=== PATIENT | male | born 1960 | race Caucasian/White ===

== ENCOUNTER → 2016-07-13 | Outpatient (CLI) | payer BC ==
--- NOTE | 2016-07-13 14:39 | XR ---
EXAMINATION TYPE: XR KUB DATE OF EXAM ORDERED: 07/13/2016 1:53 PM HISTORY: N20.2 stones. COMPARISON: Previous study dated 08/31/2013. FINDINGS: There are multiple renal calcifications present bilaterally. The largest on the left is in the lower pole and measures 5.3 mm. There is a 1.7 mm calculus overlying the upper pole of the right kidney. There are multiple, stable phleboliths within the pelvis. The abdominal gas pattern is normal. IMPRESSION: BILATERAL NEPHROLITHIASIS.
== END ==
LOC: RADXRMAIN 13:32
PROVIDERS: ATTEND Urology
DX: N20.0 Calculus of kidney (principal)
CPT/HCPCS: 74000

== ENCOUNTER → 2017-07-29 | Outpatient (CLI) | payer BC ==
--- NOTE | 2017-07-29 11:47 | XR ---
EXAMINATION TYPE: XR abdomen 1V DATE OF EXAM: 07/29/2017 HISTORY: Pain Comparison: 07/13/2016 Single KUB is submitted for interpretation. Findings: Right renal calculi: Right renal evaluation obscured by overlying bowel content. Right ureteral calculi: None Visualized. Left renal calculi: Multiple left-sided renal calculi noted with a cluster within the upper pole of the left kidney measuring up to 6.6 mm. Smaller calculi seen lower pole left kidney measuring up to 4 .6 mm. Left ureteral calculi: None Visualized. Pelvic calcifications: Multiple pelvic phleboliths noted. Bowel gas pattern is unremarkable. No free air. No mass effects. IMPRESSION: 1. Left-sided nephrolithiasis as discussed above with slight interval decrease in number suggested.
== END | disposition home or self-care (01) ==
LOC: RADXRMAIN 11:12
PROVIDERS: ATTEND Urology
DX: N20.0 Calculus of kidney (principal); R39.14 Feeling of incomplete bladder emptying
CPT/HCPCS: 74018; 84153

== ENCOUNTER → 2017-08-25 | Outpatient (CLI) | payer BC | END | disposition home or self-care (01) | LOC: LABWHC1 08:12 | PROVIDERS: ATTEND Urology | DX: E03.9 Hypothyroidism, unspecified (principal); R97.20 Elevated prostate specific antigen [PSA] | CPT/HCPCS: 36415; 84153; 84403 ==

== ENCOUNTER → 2020-05-10 | Outpatient (CLI) | payer BC ==
[2020-05-10 14:15] LABS: Basophils # (A) 0.1 k/uL (0-0.2); Basophils % (A) 1 %; Eosinophils # (A) 0.1 k/uL (0-0.7); Eosinophils % (A) 1 %; HCT 51.1 % (39.0-53.0); HGB 17.8 gm/dL (13.0-17.5); Lymphocytes # (A) 1.5 k/uL (1.0-4.8); Lymphocytes % (A) 21 %; MCH 29.8 pg (25.0-35.0); MCHC 34.9 g/dL (31.0-37.0); MCV 85.2 fL (80.0-100.0); Mean Platelet Volume 8.3; Monocytes # (A) 0.4 k/uL (0-1.0); Monocytes % (A) 5 %; Neutrophils % (A) 71 %; Platelet Count 181 k/uL (150-450); RDW 12.8 % (11.5-15.5)
== END | disposition home or self-care (01) ==
LOC: LABPAT 12:34
PROVIDERS: ATTEND Surgery
DX: Z01.818 Encounter for other preprocedural examination (principal); K43.9 Ventral hernia without obstruction or gangrene; Z20.822 Contact with and (suspected) exposure to COVID-19
CPT/HCPCS: 86900; 86901; 85025; 86850; 93005; 36415; U0003; U0005

== ENCOUNTER 2020-05-14 09:03 | Day surgery (SDC) | payer BC ==
[2020-05-09 11:49] VITALS: BMI 29.8
[~2020-05-14 09:03] MED LIST: DEXAMETHASONE SOD PHOSPHATE 4 MG/ML 1 ML VIAL IV ONE; HEPARIN SODIUM,PORCINE 5,000 UNIT/ML 1 ML VIAL SQ PRN; HYDROmorphone 0.5 MG/0.5 ML SYRINGE IVP PRN; ONDANSETRON 4 MG/2 ML VIAL IVP ONE
[2020-05-14] MEDS: LACTATED RINGERS 1,000 ML IV SCH ×2 (09:55→11:59)
[2020-05-14] MEDS ORDERED: SCOPOLAMINE 1.5MG/72HR PATCH TRANSDERM ONE (10:16)
[2020-05-14] MEDS ORDERED: MIDAZOLAM 2 MG/2 ML VIAL IVP ONE (10:36)
[2020-05-14] MEDS ORDERED: fentaNYL (PF) 50 MCG/ML 2 ML AMP IVP ONE (10:36)
[2020-05-14] MEDS ORDERED: HEPARIN SODIUM,PORCINE 5,000 UNIT/ML 1 ML VIAL SQ ONE (10:50)
--- NOTE | 2020-05-14 11:52 | P.ANPRN ---
Procedure Note - Anesthesia - Nerve Block Performed Bilateral Transversus Abdominis Single Time Out Performed: Yes ([id number]) Date of Procedure: 05/14/20 Procedure Start Time: 10:36 Procedure Stop Time: 10:42 Location of Patient: PreOp Indication: Acute Post-Operative Pain, Requested by Surgeon Specifically requested for management of pain by : Janneth Blackwood Sedation Type: Sedate with meaningful contact maintained Preparation: Sterile Prep Position: Supine Catheter: None Needle Types: Pajunk Needle Gauge: 21 Ultrasound used to visualize needle placement: Yes Ultrasound used to observe medication spread: Yes Injectate: 0.5% Ropivacaine (see comment for volume) (20cc each side) Blood Aspirated: No Pain Paresthesia on Injection Noted: No Resistance on Injection: Normal Image Stored and Saved: Yes Events: Uneventful and Well Tolerated
[2020-05-14] MEDS ORDERED: PROPOFOL 10 MG/ML 20 ML VIAL IV ONE (11:55)
[2020-05-14] MEDS ORDERED: SUCCINYLCHOLINE CHLORIDE 100 MG/5 ML SYR IV ONE (11:55)
[2020-05-14] MEDS ORDERED: MIDAZOLAM 2 MG/2 ML VIAL ONE (11:55)
[2020-05-14] MEDS ORDERED: LIDOCAINE 1% INJ 10MG/ML (20 ML MDV) ONE (11:55)
[2020-05-14] MEDS ORDERED: KETAMINE 10 MG/ML 20 ML VIAL ONE (11:55)
[2020-05-14] MEDS ORDERED: ROPIVACAINE 5 MG/ML 30 ML VIAL ONE (11:55)
[2020-05-14] MEDS ORDERED: GLYCOPYRROLATE 0.2 MG/ML 2 ML VIAL ONE (11:55)
[2020-05-14] MEDS ORDERED: NEOSTIGMINE 1 MG/ML 10 ML VIAL ONE (11:55)
[2020-05-14] MEDS ORDERED: ROCURONIUM 10 MG/ML (10 ML VIAL) IV ONE (11:55)
[2020-05-14] MEDS ORDERED: fentaNYL (PF) 50 MCG/ML 2 ML AMP ONE (11:55)
[2020-05-14] MEDS ORDERED: KETOROLAC 15 MG/ML 1 ML VIAL ONE (11:55)
[2020-05-14] MEDS ORDERED: LIDOCAINE 1% INJ 10MG/ML (10 ML MDV) SQ ONE ×2 (12:38)
[2020-05-14] MEDS ORDERED: LACTATED RINGERS 1,000 ML IV ONE (13:04)
--- NOTE | 2020-05-14 13:06 | P.OP ---
Date of Procedure: 05/14/20 Preoperative Diagnosis: Left inguinal hernia Postoperative Diagnosis: Left inguinal hernia, indirect Procedure(s) Performed: Robotic left inguinal hernia repair with mesh Anesthesia: MAHOGANY Surgeon: Janneth Blackwood Pathology: none sent Condition: stable Disposition: same day Indications for Procedure: 59-year-old male presented to the surgery clinic with complaints of left-sided pain. On workup he was found to have a left inguinal hernia. Patient requested inguinal hernia repair due to this finding. He was explained the risks, benefits and alternatives to the procedure. He did provide consent prior to attending the operating suite. Operative Findings: Left inguinal indirect hernia Description of Procedure: The patient was brought back to the operating suite and placed in supine position. After general endotracheal anesthesia was induced, Longoria catheter was placed under sterile conditions. Arms were then tucked to the sides bilaterally and all pressure points were padded. SCDs were also placed in bilateral lower extremities and working throughout the case. Preoperative and packs were given prior to incision. A timeout was performed with all team members in agreement with correct patient, procedure and location. A super umbilical incision was made approximately 20 cm superior to the pubic symphysis. The abdomen was then entered with an 8 mm trocar. At this point pneumoperitoneum was achieved. 2 additional incisions were made approximately 11 cm lateral to the super umbilical incision and 8 mm trochars were placed. The patient was then placed in Trendelenburg position and the hernia site was clearly visualized on the left side. This was noted as an indirect inguinal hernia. The robot was then docked appropriately. Incision was then made just lateral to the medial umbilical ligament on the left side with the monopolar scissors and peritoneal flap was created and was taken down towards Harry's ligament. The flap was then extended laterally. Attention was then turned to the indirect inguinal hernia. The sac was then freed from the cord all while preserving cord structures. At this point, the indirect hernia was reduced. Once the entire face was approximately dissected out, we brought the laparoscopic anatomic Parietex progrip mesh and unrolled it over the hernia site. Once appropriately in place, the peritoneal flap was closed using a running 20V lock suture. Once this was completed, we removed all robotic instruments and undocked the robot. The supraumbilical fascial incision was closed with a 0 Vicryl suture using a Guille-Satinder device. This was done under laparoscopic guidance. All skin incisions were then closed with 4-0 Vicryl subcuticular suture. The Longoria catheter was removed. The patient was awakened and taken to recovery unit in stable condition.
[2020-05-14 13:21] VITALS: TEMP 97.4
[2020-05-14 13:54] VITALS: RESP 16
[2020-05-14] MEDS ORDERED: HYDROcodone/APAP 5-325MG 1 EACH TAB ONE (14:08)
[2020-05-14 15:58] VITALS: BP 162/109; PULSE 88
== END 2020-05-14 15:51 | disposition home or self-care (01) ==
LOC: OR 09:03
PROVIDERS: ATTEND Surgery
DX: K40.90 Unilateral inguinal hernia, without obstruction or gangrene, not specified as recurrent (principal); E07.9 Disorder of thyroid, unspecified; Z79.890 Hormone replacement therapy; Z79.899 Other long term (current) drug therapy; Z80.9 Family history of malignant neoplasm, unspecified; Z81.8 Family history of other mental and behavioral disorders; Z87.442 Personal history of urinary calculi
CPT/HCPCS: 64488; 49650; C1781; J2250; J1644; J1100; J2710; J0690; J2405; J2001 ×2; J3010; J2795; J1885; J0330; J2704; 86850; 86900; 86901

== ENCOUNTER → 2021-12-09 | Outpatient (CLI) | payer BC ==
[2021-12-09 15:10] LABS: HCT 49.2 % (39.6-50.0); HGB 16.1 g/dL (13.0-17.0); MCH 28.3 pg (27.0-32.0); MCHC 32.7 g/dL (32.0-37.0); MCV 86.5 fL (80.0-97.0); NRBC Per 100 WBC 0 /100 WBCS (0.0-0.0); Platelet Count 192 X 10*3/uL (140-440); RBC 5.69 X 10*6/uL (4.40-5.60); RDW 12.9 % (11.5-14.5); WBC 6.52 X 10*3/uL (4.50-10.00)
[2021-12-09 15:51] LABS: ALT 27 U/L (10-49); AST 21 U/L (14-35); African American GFR (CKD) 69.2 (60.0-200.0); Albumin 4.5 g/dL (3.8-4.9); Alkaline Phosphatase 63 U/L (41-126); Blood Urea Nitrogen 15.6 mg/dL (9.0-27.0); Calcium 9.1 mg/dL (8.7-10.3); Carbon Dioxide 25.1 mmol/L (20.0-27.5); Chloride 103 mmol/L (96-109); Globulin 2.5 g/dL (1.6-3.3); Glucose 107 mg/dL (70-110); Luteinizing Hormone 0.5 mIU/mL; Non-African American GFR(CKD) 59.7 (60.0-200.0); Potassium 4.5 mmol/L (3.5-5.5); Sodium 140 mmol/L (135-145)
[2021-12-09 15:55] LABS: Follicle Stimulating Hormone <0.3 mIU/mL
== END | disposition home or self-care (01) ==
LOC: LABWHC1 09:55
PROVIDERS: ATTEND Internal Medicine Endocrinology, Diabetes & Metabolism
DX: E29.1 Testicular hypofunction (principal); E03.8 Other specified hypothyroidism
CPT/HCPCS: 36415; 80053; 82533; 83001; 83002; 84146; 84153; 84403; 84443; 85027

== ENCOUNTER 2022-01-26 16:19 | Emergency (ER) | payer BC ==
[2022-01-26 17:03] VITALS: RESP 20
[2022-01-26 17:48] LABS: Appearance,Urine Clear (Clear); Bilirubin,Urine Negative (Negative); Blood,Urine Negative (Negative); Color,Urine Colorless; Glucose,Urine (UA) Negative (Negative); Ketones,Urine Negative (Negative); Leukocyte Esterase,Urine Negative (Negative); Nitrite,Urine Negative (Negative); Protein,Urine Negative (Negative); Specific Gravity,Urine 1.009 (1.001-1.035); Urobilinogen,Urine <2.0 mg/dL (<2.0)
--- NOTE | 2022-01-26 18:00 | XR ---
EXAMINATION TYPE: XR KUB DATE OF EXAM: 01/26/2022 5:40 PM INDICATION: Patient age:Male; 61 years old; Reason for study: abdominal, decreased urination; COMPARISON: CT abdomen pelvis 05/18/2013. TECHNIQUE: One radiographic view of the abdomen was obtained. FINDINGS: The bowel gas pattern is nonspecific without dilated loops of small or large bowel. There i s no evidence for organomegaly or pneumoperitoneum. The osseous structures are intact. Calcific dens ities project over the left kidney measuring up to 12 mm. Fecal material and gas are demonstrated thr oughout the colon and rectum. Multilevel disc degeneration changes of the spine. IMPRESSION: 1. Nonspecific bowel gas pattern without radiographic evidence for acute process. 2. Left renal calculi.
[2022-01-26 18:43] LABS: Basophils % (A) 0 %; Eosinophils # (A) 0.1 k/uL (0-0.7); Eosinophils % (A) 1 %; HCT 50.9 % (39.0-53.0); HGB 18.3 gm/dL (13.0-17.5); Lymphocytes # (A) 1.3 k/uL (1.0-4.8); Lymphocytes % (A) 15 %; MCH 30.4 pg (25.0-35.0); MCV 84.4 fL (80.0-100.0); Mean Platelet Volume 9.7; Monocytes # (A) 0.4 k/uL (0-1.0); Monocytes % (A) 4 %; Neutrophils % (A) 78 %; Platelet Count 186 k/uL (150-450); RBC 6.03 m/uL (4.30-5.90); RDW 11.9 % (11.5-15.5); WBC 8.9 k/uL (3.8-10.6)
[2022-01-26 18:51] LABS: Albumin 4.8 g/dL (3.5-5.0); Calcium 9.6 mg/dL (8.4-10.2); Potassium 4.8 mmol/L (3.5-5.1); Total Bilirubin 0.6 mg/dL (0.2-1.3); Total Protein 7.8 g/dL (6.3-8.2)
--- NOTE | 2022-01-26 21:09 | ED ---
Male Urogenital HPI - General Chief complaint: Urogenital Stated complaint: Difficulty urinating Time Seen by Provider: 01/26/22 20:40 Source: patient, RN notes reviewed Mode of arrival: ambulatory Limitations: no limitations - History of Present Illness Initial comments: This is a pleasant 61-year-old male who presents to emergency department complaining of urinary retention since this morning. Patient states he's been able to dribble out a little bit of urine here and there. Patient has discomfort in the suprapubic area. Any history of urinary retention. No history of prostate problems. Patient does have a history of kidney stones and states that he has been having some back pain. In fact, he recently saw a neurologist for epidural steroid injections into the back. It sounds that this back pain was mechanical. Patient not specifically complaining of any flank pain although he states last week he did have some pain around the left flank. Patient taking no qquk-ywi-hcrvjzh cough or cold remedies. No medications that would definitively cause urinary retention. No new medications. No headache, no fever or chills, no changes in vision or hearing, no sore throat or difficulty with speech, no neck pain, no chest pain or shortness of breath, no abdominal pain, no nausea or vomiting, no changes inbowel movements, no numbness or tingling, no extremity pain, no skin rashes or lesions. Past medical, surgical, social, and family history reviewed. - Related Data Home Medications Medication Instructions Recorded Confirmed Testosterone [Androgel 1.62% Gel 1 dose TOPICAL DAILY 08/25/13 05/14/20 Packet] B Complex-Vit C-Vit E-Zinc [Z-Bec] 1 tab PO DAILY 05/09/20 05/14/20 Cholecalciferol (Vitamin D3) 125 mcg PO DAILY 05/09/20 05/14/20 [Vitamin D3 (5000 Iu)] Levothyroxine Sodium [Levoxyl] 75 mcg PO DAILY 05/09/20 05/14/20 Melatonin 5 mg PO HS PRN 05/09/20 05/14/20 Sildenafil Citrate [Viagra] 50 mg PO DIRECTED PRN 05/09/20 05/14/20 Vitamin E 400 unit PO DAILY 05/09/20 05/14/20 flaxseed oiL [Rainbow-3 Flaxseed Oil] 750 mg PO DAILY 05/09/20 05/14/20 Previous Rx's Medication Instructions Recorded HYDROcodone/APAP 5-325MG [[place] 1 tab PO Q6HR PRN 3 Days #12 tab 05/14/20 5-325] Ibuprofen [Motrin] 800 mg PO Q8H #24 tab 05/14/20 Allergies Allergy/AdvReac Type Severity Reaction Status Date / Time No Known Allergies Allergy Verified 01/26/22 17:03 Review of Systems ROS Statement: Those systems with pertinent positive or pertinent negative responses have been documented in the HPI. ROS Other: All systems not noted in ROS Statement are negative. Past Medical History Past Medical History: Thyroid Disorder Additional Past Medical History / Comment(s): Renal calculi. Ventral hernia currrently. History of Any Multi-Drug Resistant Organisms: None Reported Past Surgical History: Back Surgery Additional Past Surgical History / Comment(s): Lumbar surgery, left percutaneous nephrolithotomy Past Anesthesia/Blood Transfusion Reactions: Motion Sickness Past Psychological History: No Psychological Hx Reported Smoking Status: Never smoker Past Alcohol Use History: None Reported Past Drug Use History: None Reported - Past Family History Father Family Medical History: Cancer, CVA/TIA Additional Family Medical History / Comment(s): Melanoma skin cancer General Exam Limitations: no limitations General appearance: alert, in no apparent distress Head exam: Present: atraumatic, normocephalic, normal inspection Eye exam: Present: normal appearance, PERRL, EOMI. Absent: scleral icterus, conjunctival injection, periorbital swelling ENT exam: Present: normal exam, mucous membranes moist, normal external ear exam. Absent: mucous membranes dry, TM's normal bilaterally Neck exam: Present: normal inspection. Absent: tenderness, meningismus, lymphadenopathy Respiratory exam: Present: normal lung sounds bilaterally. Absent: respiratory distress, wheezes, rales, rhonchi, stridor Cardiovascular Exam: Present: regular rate, normal rhythm, normal heart sounds. Absent: systolic murmur, diastolic murmur, rubs, gallop, clicks GI/Abdominal exam: Present: distended (Distended urinary bladder), tenderness (Mild tenderness to suprapubic area with notable bladder distention.), normal bowel sounds. Absent: guarding, rebound, rigid Extremities exam: Present: normal inspection, full ROM, normal capillary refill. Absent: tenderness, pedal edema, joint swelling, calf tenderness Back exam: Present: normal inspection Neurological exam: Present: alert, oriented X3, CN II-XII intact Psychiatric exam: Present: normal affect, normal mood Skin exam: Present: warm, dry, intact, normal color. Absent: rash Course Vital Signs 01/26/22 17:00 Temperature 97.8 F Pulse Rate 103 H Respiratory 20 Rate Blood Pressure 150/90 O2 Sat by Pulse 96 Oximetry Medical Decision Making - Medical Decision Making Patient presents with urinary retention. Does not appear to be ill or toxic. Does not appear to be related to any medication use. General lab work, I'm going to obtain a computed tomography scan as the patient states he did have flank pain about a week ago and has a history of kidney stones. Computed tomography scan shows nonobstructing renal calculi, prostatomegaly, large stool burden both in the rectal vault and throughout the colon. Small fat-containing umbilical hernia. No other evidence of acute pathology. I did offer an enema to the patient. He refused this. States he would rather use adox-lgv-nehvprf laxatives. Discussed hydration strategies. We'll leave the Longoria catheter in place for 3 days and have him follow-up with his urologist, Dr. Friedman alternatively, he can follow-up with his regular physician Dr. Chappell. Patient was told to return to the ER for any signs or symptoms worsen. Told to return immediately if any other problems arise. All questions answered. Treatment plan discussed. Patient in agreement Every effort has been made to ensure accuracy of this dictation. However, due to the limitations of electronic medical records and dictation devices, errors in charting still occur. Bonding Supervisor Dr. Myles - Lab Data Result diagrams: 01/26/22 18:10 01/26/22 18:10 Lab Results 01/26/22 01/26/22 01/26/22 Range/Units 17:13 18:10 18:10 WBC 8.9 (3.8-10.6) k/uL RBC 6.03 H (4.30-5.90) m/uL Hgb 18.3 H (13.0-17.5) gm/dL Hct 50.9 (39.0-53.0) % MCV 84.4 (80.0-100.0) fL MCH 30.4 (25.0-35.0) pg MCHC 36.0 (31.0-37.0) g/dL RDW 11.9 (11.5-15.5) % Plt Count 186 (150-450) k/uL MPV 9.7 Neutrophils % 78 % Lymphocytes % 15 % Monocytes % 4 % Eosinophils % 1 % Basophils % 0 % Neutrophils # 7.0 (1.3-7.7) k/uL Lymphocytes # 1.3 (1.0-4.8) k/uL Monocytes # 0.4 (0-1.0) k/uL Eosinophils # 0.1 (0-0.7) k/uL Basophils # 0.0 (0-0.2) k/uL Sodium 141 (137-145) mmol/L Potassium 4.8 (3.5-5.1) mmol/L Chloride 101 (98-107) mmol/L Carbon Dioxide 27 (22-30) mmol/L Anion Gap 13 mmol/L BUN 18 (9-20) mg/dL Creatinine 1.12 (0.66-1.25) mg/dL Est GFR (CKD-EPI)AfAm 83 (>60 ml/min/1.73 sqM) Est GFR (CKD-EPI)NonAf 72 (>60 ml/min/1.73 sqM) Glucose 97 (74-99) mg/dL Calcium 9.6 (8.4-10.2) mg/dL Total Bilirubin 0.6 (0.2-1.3) mg/dL AST 21 (17-59) U/L ALT 35 (4-49) U/L Alkaline Phosphatase 83 (38-126) U/L Total Protein 7.8 (6.3-8.2) g/dL Albumin 4.8 (3.5-5.0) g/dL Urine Color Colorless Urine Appearance Clear (Clear) Urine pH 5.0 (5.0-8.0) Ur Specific [place] 1.009 (1.001-1.035) Urine Protein Negative (Negative) Urine Glucose (UA) Negative (Negative) Urine Ketones Negative (Negative) Urine Blood Negative (Negative) Urine Nitrite Negative (Negative) Urine Bilirubin Negative (Negative) Urine Urobilinogen <2.0 (<2.0) mg/dL Ur Leukocyte Esterase Negative (Negative) - Radiology Data Radiology results: report reviewed, image reviewed Disposition Clinical Impression: Acute urinary retention, Prostate enlargement, Constipation Disposition: HOME SELF-CARE Condition: Good Instructions (If sedation given, give patient instructions): Enlarged Prostate (BPH) (ED), Urinary Retention in Men (ED), Constipation (ED) Additional Instructions: Become magnesium citrate from the pharmacy on the way home. Drink the bottle as directed, weight 6 hours, repeat the treatment if necessary. Ensure your adequately hydrated. Call tomorrow morning at 8 AM to the urologist's office to schedule a follow-up appointment. Longoria catheter will likely need to be left in for about 3 days. Follow-up with your regular physician as directed. Return to the ER immediately if any symptoms worsen, new symptoms arise, or any other problems develop. Is patient prescribed a controlled substance at d/c from ED?: No Referrals: Diego Chappell MD [Primary Care Provider] - 1-2 days Time of Disposition: 22:19
--- NOTE | 2022-01-26 21:59 | CT ---
EXAMINATION TYPE: CT abdomen pelvis wo con CT DLP: 782.2 mGycm, Automated exposure control for dose reduction was used. DATE OF EXAM: 01/26/2022 9:52 PM COMPARISON: CT abdomen pelvis most recent from 05/18/2013 CLINICAL INDICATION:Male, 61 years old with history of Flank pain, urinary retention; LT flank pain, urinary retention TECHNIQUE: Axial CT of the abdomen and pelvis. Sagittal and coronal reformats were created on a [employer] workstation. Contrast used: none Oral contrast used: without Oral Contrast FINDINGS: LOWER CHEST: Unremarkable ABDOMEN LIVER: Unremarkable GALLBLADDER AND BILE DUCTS: Unremarkable. PANCREAS: Unremarkable. SPLEEN: Scattered calcified granulomas. ADRENAL GLANDS: Unremarkable. KIDNEYS AND URETERS: Bilateral renal calculi no evidence for obstructive uropathy. PELVIS BLADDER: Nondistended with Longoria catheter in place. REPRODUCTIVE: Prostate is enlarged in size measuring 6.7 cm in transverse dimension. ABDOMEN & PELVIS STOMACH AND BOWEL: No evidence of bowel obstruction. Stool ball seen within the rectum. Appendix is n ormal. There is a large stool burden predominantly in the cecum and ascending colon and proximal valenzuela sverse colon. PERITONEUM: No evidence of pneumoperitoneum or free fluid. VASCULATURE: No evidence of aortic aneurysm. MUSCULOSKELETAL: No acute osseous abnormalities, multilevel disc degeneration changes. LYMPH NODES: No gross evidence for lymphadenopathy. SOFT TISSUE/ABDOMINAL WALL: Bilateral fat filled inguinal fatty changes. Small fat-containing umbilic al hernia. IMPRESSION: 1. Bilateral nonobstructing renal calculi without evidence for hydronephrosis. No evidence for acute intraluminal process. 2. Prostatomegaly. Correlate with serum PSA. 3. Longoria catheter in place with a nondistended bladder. 4. Large stool burden throughout the right colon and rectum.
[2022-01-26 22:47] VITALS: BP 148/77; PULSE 92; TEMP 98
== END 2022-01-26 22:47 | disposition home or self-care (01) ==
LOC: EC 16:19
DX: K59.00 Constipation, unspecified (principal); N40.1 Benign prostatic hyperplasia with lower urinary tract symptoms; E07.9 Disorder of thyroid, unspecified; Z79.899 Other long term (current) drug therapy
CPT/HCPCS: 36415; 74018; 74176; 80053; 81003; 85025; 99284

== ENCOUNTER 2022-02-08 20:57 | Inpatient (IN) | payer BC ==
[2022-02-08] MEDS ORDERED: ACETAMINOPHEN TAB 500 MG TAB PO STA (21:31)
[2022-02-08] MEDS ORDERED: SODIUM CHLORIDE 0.9% 500 ML 500 ML IV STA (21:31)
[2022-02-08] MEDS ORDERED: SODIUM CHLORIDE 0.9% 1,000 ML IV STA ×2 (21:31)
[2022-02-08] MEDS ORDERED: KETOROLAC 15 MG/ML 1 ML VIAL IVP STA (21:33)
[2022-02-08 22:09] LABS: Basophils # (A) 0.1 k/uL (0-0.2); Basophils % (A) 0 %; Eosinophils # (A) 0.2 k/uL (0-0.7); Eosinophils % (A) 1 %; HCT 41.6 % (39.0-53.0); Lymphocytes # (A) 0.7 k/uL (1.0-4.8); Lymphocytes % (A) 3 %; MCH 29.3 pg (25.0-35.0); MCHC 35.4 g/dL (31.0-37.0); MCV 82.8 fL (80.0-100.0); Mean Platelet Volume 9.1; Monocytes # (A) 1.2 k/uL (0-1.0); Monocytes % (A) 4 %; Neutrophils # (A) 25.1 k/uL (1.3-7.7); Neutrophils % (A) 91 %; Platelet Count 158 k/uL (150-450); RBC 5.03 m/uL (4.30-5.90); WBC 27.5 k/uL (3.8-10.6)
[2022-02-08 22:11] LABS: HGB 14.7 gm/dL (13.0-17.5)
--- NOTE | 2022-02-08 22:17 | ED ---
Fever HPI - General Chief Complaint: Fever Stated Complaint: Fever Time Seen by Provider: 02/08/22 21:30 Source: patient, RN notes reviewed, old records reviewed Mode of arrival: ambulatory Limitations: no limitations - History of Present Illness Initial Comments: This is a 61-year-old male to the emergency department for evaluation, patient has been straight cathing lately secondary to urinary retention. Patient has severe weakness currently he does feel sweaty clammy lightheaded and dizzy. Patient has body aches pains and feels like he may have breast for infection cough or congestion. MD Complaint: fever, malaise, weakness, other (Cough and congestion) -: days(s) Temperature Source: oral Context: sick contacts, multiple patients with similar symptoms Associated Symptoms: denies other symptoms Treatments Prior to Arrival: none - Related Data Home Medications Medication Instructions Recorded Confirmed Testosterone [Androgel 1.62% Gel 1 dose TOPICAL DAILY 08/25/13 05/14/20 Packet] B Complex-Vit C-Vit E-Zinc [Z-Bec] 1 tab PO DAILY 05/09/20 05/14/20 Cholecalciferol (Vitamin D3) 125 mcg PO DAILY 05/09/20 05/14/20 [Vitamin D3 (5000 Iu)] Levothyroxine Sodium [Levoxyl] 75 mcg PO DAILY 05/09/20 05/14/20 Melatonin 5 mg PO HS PRN 05/09/20 05/14/20 Sildenafil Citrate [Viagra] 50 mg PO DIRECTED PRN 05/09/20 05/14/20 Vitamin E 400 unit PO DAILY 05/09/20 05/14/20 flaxseed oiL [[place]-3 Flaxseed Oil] 750 mg PO DAILY 05/09/20 05/14/20 Previous Rx's Medication Instructions Recorded HYDROcodone/APAP 5-325MG [[place] 1 tab PO Q6HR PRN 3 Days #12 tab 05/14/20 5-325] Ibuprofen [Motrin] 800 mg PO Q8H #24 tab 05/14/20 Allergies Allergy/AdvReac Type Severity Reaction Status Date / Time No Known Allergies Allergy Verified 02/08/22 21:21 Review of Systems ROS Statement: Those systems with pertinent positive or pertinent negative responses have been documented in the HPI. ROS Other: All systems not noted in ROS Statement are negative. Past Medical History Past Medical History: Thyroid Disorder Additional Past Medical History / Comment(s): Renal calculi. Ventral hernia currrently. History of Any Multi-Drug Resistant Organisms: None Reported Past Surgical History: Back Surgery Additional Past Surgical History / Comment(s): Lumbar surgery, left percutaneous nephrolithotomy Past Anesthesia/Blood Transfusion Reactions: Motion Sickness Past Psychological History: No Psychological Hx Reported Smoking Status: Never smoker Past Alcohol Use History: None Reported Past Drug Use History: None Reported - Past Family History Father Family Medical History: Cancer, CVA/TIA Additional Family Medical History / Comment(s): Melanoma skin cancer General Exam Limitations: no limitations General appearance: alert, in no apparent distress, anxious, in distress Head exam: Present: atraumatic, normocephalic, normal inspection Eye exam: Present: normal appearance, PERRL, EOMI. Absent: scleral icterus, conjunctival injection, periorbital swelling ENT exam: Present: normal exam, mucous membranes dry Neck exam: Present: normal inspection. Absent: tenderness, meningismus, lymphadenopathy Respiratory exam: Present: normal lung sounds bilaterally. Absent: respiratory distress, wheezes, rales, rhonchi, stridor Cardiovascular Exam: Present: normal rhythm, tachycardia, normal heart sounds. Absent: systolic murmur, diastolic murmur, rubs, gallop, clicks GI/Abdominal exam: Present: soft, normal bowel sounds. Absent: distended, tenderness, guarding, rebound, rigid Extremities exam: Present: normal inspection, full ROM, normal capillary refill. Absent: tenderness, pedal edema, joint swelling, calf tenderness Back exam: Present: normal inspection Neurological exam: Present: alert, oriented X3, CN II-XII intact Psychiatric exam: Present: normal affect, normal mood Skin exam: Present: warm, dry, intact, normal color. Absent: rash Course Vital Signs 02/08/22 02/08/22 02/08/22 21:17 22:08 22:40 Temperature 100.1 F H 102.3 F H 101.2 F H Pulse Rate 133 H 123 H 114 H Respiratory 20 20 Rate Blood Pressure 92/60 O2 Sat by Pulse 95 93 L 94 L Oximetry 02/08/22 02/08/22 23:00 23:30 Temperature 99.3 F 98.8 F Pulse Rate 107 H Respiratory 20 Rate Blood Pressure 110/61 O2 Sat by Pulse 95 Oximetry - Reevaluation(s) Reevaluation #1: 02/08/22 23:07 Medical records reviewed Reevaluation #2: 02/09/22 00:45 patient has no significant improvement here in the ED Reevaluation #3: 02/09/22 00:46 Patient informed of results and questions answered - Consultations Consultation #1: Spoke with [facility] who agreed to admit the patient Medical Decision Making - Medical Decision Making 61 male to the emergency department today for evaluation regarding urinary retention prostate enlargement today with fever and weakness for 2 days. Patient has significant urinary tract infection. Patient has sepsis. Due to patient's sepsis he will be given 30 mi./kg of fluid. Patient placed on IV antibiotics broad-spectrum, and admitted for further treatment - Lab Data Result diagrams: 02/08/22 21:58 02/08/22 21:58 Lab Results 02/08/22 02/08/22 02/08/22 Range/Units 21:55 21:55 21:58 WBC 27.5 H (3.8-10.6) k/uL RBC 5.03 (4.30-5.90) m/uL Hgb 14.7 D (13.0-17.5) gm/dL Hct 41.6 (39.0-53.0) % MCV 82.8 (80.0-100.0) fL MCH 29.3 (25.0-35.0) pg MCHC 35.4 (31.0-37.0) g/dL RDW 12.0 (11.5-15.5) % Plt Count 158 (150-450) k/uL MPV 9.1 Neutrophils % 91 % Lymphocytes % 3 % Monocytes % 4 % Eosinophils % 1 % Basophils % 0 % Neutrophils # 25.1 H (1.3-7.7) k/uL Lymphocytes # 0.7 L (1.0-4.8) k/uL Monocytes # 1.2 H (0-1.0) k/uL Eosinophils # 0.2 (0-0.7) k/uL Basophils # 0.1 (0-0.2) k/uL Sodium (137-145) mmol/L Potassium (3.5-5.1) mmol/L Chloride (98-107) mmol/L Carbon Dioxide (22-30) mmol/L Anion Gap mmol/L BUN (9-20) mg/dL Creatinine (0.66-1.25) mg/dL Est GFR (CKD-EPI)AfAm (>60 ml/min/1.73 sqM) Est GFR (CKD-EPI)NonAf (>60 ml/min/1.73 sqM) Glucose (74-99) mg/dL POC Glucose (mg/dL) (70-110) mg/dL POC Glu Doctor Podiatric Medicine ID Plasma Lactic Acid [place] (0.7-2.0) mmol/L Calcium (8.4-10.2) mg/dL Phosphorus (2.5-4.5) mg/dL Magnesium (1.6-2.3) mg/dL Total Bilirubin (0.2-1.3) mg/dL AST (17-59) U/L ALT (4-49) U/L Alkaline Phosphatase (38-126) U/L Total Protein (6.3-8.2) g/dL Albumin (3.5-5.0) g/dL Lipase (23-300) U/L Urine Color Urine Appearance (Clear) Urine pH (5.0-8.0) Ur Specific [place] (1.001-1.035) Urine Protein (Negative) Urine Glucose (UA) (Negative) Urine Ketones (Negative) Urine Blood (Negative) Urine Nitrite (Negative) Urine Bilirubin (Negative) Urine Urobilinogen (<2.0) mg/dL Ur Leukocyte Esterase (Negative) Urine RBC (0-5) /hpf Urine WBC (0-5) /hpf Urine WBC Clumps (None) /hpf Urine Bacteria (None) /hpf Urine Mucus (None) /hpf Coronavirus (PCR) Not Detected (Not Detectd) Influenza Type A RNA Not Detected (Not Detectd) Influenza Type B (PCR) Not Detected (Not Detectd) 02/08/22 02/08/22 02/08/22 Range/Units 21:58 21:58 23:17 WBC (3.8-10.6) k/uL RBC (4.30-5.90) m/uL Hgb (13.0-17.5) gm/dL Hct (39.0-53.0) % MCV (80.0-100.0) fL MCH (25.0-35.0) pg MCHC (31.0-37.0) g/dL RDW (11.5-15.5) % Plt Count (150-450) k/uL MPV Neutrophils % % Lymphocytes % % Monocytes % % Eosinophils % % Basophils % % Neutrophils # (1.3-7.7) k/uL Lymphocytes # (1.0-4.8) k/uL Monocytes # (0-1.0) k/uL Eosinophils # (0-0.7) k/uL Basophils # (0-0.2) k/uL Sodium 132 L (137-145) mmol/L Potassium 3.9 (3.5-5.1) mmol/L Chloride 99 (98-107) mmol/L Carbon Dioxide 22 (22-30) mmol/L Anion Gap 11 mmol/L BUN 16 (9-20) mg/dL Creatinine 1.30 H (0.66-1.25) mg/dL Est GFR (CKD-EPI)AfAm 69 (>60 ml/min/1.73 sqM) Est GFR (CKD-EPI)NonAf 60 (>60 ml/min/1.73 sqM) Glucose 167 H (74-99) mg/dL POC Glucose (mg/dL) (70-110) mg/dL POC Glu Doctor Podiatric Medicine ID Plasma Lactic Acid [place] 1.4 (0.7-2.0) mmol/L Calcium 8.4 (8.4-10.2) mg/dL Phosphorus 1.5 L (2.5-4.5) mg/dL Magnesium 1.6 (1.6-2.3) mg/dL Total Bilirubin 1.4 H (0.2-1.3) mg/dL AST 15 L (17-59) U/L ALT 23 (4-49) U/L Alkaline Phosphatase 71 (38-126) U/L Total Protein 6.1 L (6.3-8.2) g/dL Albumin 3.7 (3.5-5.0) g/dL Lipase 13 L (23-300) U/L Urine Color Yellow Urine Appearance Cloudy (Clear) Urine pH 5.5 (5.0-8.0) Ur Specific [place] 1.012 (1.001-1.035) Urine Protein 1+ H (Negative) Urine Glucose (UA) Negative (Negative) Urine Ketones Negative (Negative) Urine Blood Large H (Negative) Urine Nitrite Negative (Negative) Urine Bilirubin Negative (Negative) Urine Urobilinogen <2.0 (<2.0) mg/dL Ur Leukocyte Esterase Large H (Negative) Urine RBC 24 H (0-5) /hpf Urine WBC >182 H (0-5) /hpf Urine WBC Clumps Moderate H (None) /hpf Urine Bacteria Rare H (None) /hpf Urine Mucus Rare H (None) /hpf Coronavirus (PCR) (Not Detectd) Influenza Type A RNA (Not Detectd) Influenza Type B (PCR) (Not Detectd) 02/09/22 Range/Units 00:28 WBC (3.8-10.6) k/uL RBC (4.30-5.90) m/uL Hgb (13.0-17.5) gm/dL Hct (39.0-53.0) % MCV (80.0-100.0) fL MCH (25.0-35.0) pg MCHC (31.0-37.0) g/dL RDW (11.5-15.5) % Plt Count (150-450) k/uL MPV Neutrophils % % Lymphocytes % % Monocytes % % Eosinophils % % Basophils % % Neutrophils # (1.3-7.7) k/uL Lymphocytes # (1.0-4.8) k/uL Monocytes # (0-1.0) k/uL Eosinophils # (0-0.7) k/uL Basophils # (0-0.2) k/uL Sodium (137-145) mmol/L Potassium (3.5-5.1) mmol/L Chloride (98-107) mmol/L Carbon Dioxide (22-30) mmol/L Anion Gap mmol/L BUN (9-20) mg/dL Creatinine (0.66-1.25) mg/dL Est GFR (CKD-EPI)AfAm (>60 ml/min/1.73 sqM) Est GFR (CKD-EPI)NonAf (>60 ml/min/1.73 sqM) Glucose (74-99) mg/dL POC Glucose (mg/dL) 145 H (70-110) mg/dL POC Glu Doctor Podiatric Medicine ID Kallek, Christelle Plasma Lactic Acid [place] (0.7-2.0) mmol/L Calcium (8.4-10.2) mg/dL Phosphorus (2.5-4.5) mg/dL Magnesium (1.6-2.3) mg/dL Total Bilirubin (0.2-1.3) mg/dL AST (17-59) U/L ALT (4-49) U/L Alkaline Phosphatase (38-126) U/L Total Protein (6.3-8.2) g/dL Albumin (3.5-5.0) g/dL Lipase (23-300) U/L Urine Color Urine Appearance (Clear) Urine pH (5.0-8.0) Ur Specific [place] (1.001-1.035) Urine Protein (Negative) Urine Glucose (UA) (Negative) Urine Ketones (Negative) Urine Blood (Negative) Urine Nitrite (Negative) Urine Bilirubin (Negative) Urine Urobilinogen (<2.0) mg/dL Ur Leukocyte Esterase (Negative) Urine RBC (0-5) /hpf Urine WBC (0-5) /hpf Urine WBC Clumps (None) /hpf Urine Bacteria (None) /hpf Urine Mucus (None) /hpf Coronavirus (PCR) (Not Detectd) Influenza Type A RNA (Not Detectd) Influenza Type B (PCR) (Not Detectd) - Radiology Data Radiology results: report reviewed (CT abdomen and pelvis pending), image reviewed Critical Care Time Critical Care Time: Yes Total Critical Care Time: 31 Disposition Clinical Impression: Prostate enlargement, Acute urinary retention, Fever, Sepsis, UTI (urinary tract infection) Disposition: ADMITTED IP TO THIS [facility] Condition: Fair Is patient prescribed a controlled substance at d/c from ED?: No Referrals: Diego Chappell MD [Primary Care Provider] - 1-2 days Time of Disposition: 00:30
--- NOTE | 2022-02-08 22:32 | XR ---
EXAMINATION TYPE: XR chest 1V portable DATE OF EXAM: 02/08/2022 COMPARISON: NONE HISTORY: Cough TECHNIQUE: Single view FINDINGS: There is no heart failure nor confluent pneumonic infiltrate. Costophrenic angles are clear . There are chest leads. Bony thorax is intact. IMPRESSION: No active cardiopulmonary disease. Normal heart.
[2022-02-08 22:39] LABS: Albumin 3.7 g/dL (3.5-5.0); Calcium 8.4 mg/dL (8.4-10.2); Magnesium 1.6 mg/dL (1.6-2.3); Phosphorus 1.5 mg/dL (2.5-4.5); Potassium 3.9 mmol/L (3.5-5.1); Total Bilirubin 1.4 mg/dL (0.2-1.3); Total Protein 6.1 g/dL (6.3-8.2)
[2022-02-09 00:03] LABS: Appearance,Urine Cloudy (Clear); Bacteria,Urine Rare /hpf; Bilirubin,Urine Negative (Negative); Blood,Urine Large (Negative); Color,Urine Yellow; Glucose,Urine (UA) Negative (Negative); Ketones,Urine Negative (Negative); Leukocyte Esterase,Urine Large (Negative); Mucus,Urine Rare /hpf; Nitrite,Urine Negative (Negative); PH, Urine 5.5 (5.0-8.0); Protein,Urine 1+ (Negative); RBC,Urine 24 /hpf (0-5); Specific Gravity,Urine 1.012 (1.001-1.035); Urobilinogen,Urine <2.0 mg/dL (<2.0); WBC,Urine >182 /hpf (0-5)
[2022-02-09] MEDS ORDERED: SODIUM CHLORIDE 0.9% 1,000 ML IV STA (00:24)
[2022-02-09] MEDS ORDERED: ACETAMINOPHEN TAB 325 MG TAB PO PRN (00:25)
[2022-02-09] MEDS ORDERED: ONDANSETRON 4 MG/2 ML VIAL IVP PRN (00:25)
[2022-02-09] MEDS ORDERED: MORPHINE SULFATE 4 MG/ML SYRINGE IV PRN (00:25)
[2022-02-09] MEDS ORDERED: NALOXONE 0.4 MG/ML 1 ML VIAL IV PRN (00:25)
[2022-02-09 00:30] LABS: Glucose,Whole Blood 145 mg/dL (70-110)
[2022-02-09] MEDS: SODIUM CHLORIDE 0.9% 1,000 ML IV SCH ×3 (00:32→17:13)
--- NOTE | 2022-02-09 01:28 | CT ---
EXAMINATION TYPE: CT abdomen pelvis wo con DATE OF EXAM: 02/09/2022 COMPARISON: 01/26/2022 HISTORY: Urinary retention CT DLP: 745.8 mGycm Automated exposure control for dose reduction was used. Images obtained from the diaphragm to the floor of the pelvis with no contrast. There is some mild pleural thickening and atelectasis at the posterior lung bases. Heart size is norm al. No pericardial effusion. Liver and spleen are intact. There are small calcified splenic granuloma ta. No pancreatic mass. Gallbladder appears normal. The bile ducts are not dilated. Stomach is intact . There is no adrenal mass. There are a few bilateral renal calculi that measure up to 8 mm. No hydrone phrosis. Ureters are not dilated. No retroperitoneal adenopathy. There is some minimal urinary bladde r wall thickening. The appendix is posterior and appears normal. There is no mesenteric edema. No asc ites or free air. No sign of a bowel obstruction. There is moderate enlargement of the prostate measu res 6.5 cm. No inguinal hernia. No free fluid in the pelvis. The lumbar vertebra have normal alignment. There is narrowing at the L4-5 disc with spurring. No comp ression fracture. Bony pelvis is intact. The hip joints are intact. Sacroiliac joints are intact. IMPRESSION: Bilateral nonobstructing renal calculi. Enlarged prostate. Mild urinary bladder wall thickening suggestive of some nonspecific cystitis. Minimal atelectasis at the lung bases. Atelectasis appears new compared to old exam.
--- NOTE | 2022-02-09 08:27 | P.GSCN ---
History of Present Illness Consult date: 02/09/22 Reason for Consult: Urinary retention Requesting physician: Radha aTng History of present illness: The patient is a 61-year-old white male seen in the ER on 01/26/2022 for urinary retention. This may been precipitated by constipation. A Longoria catheter was placed, with return of over 1 L of urine. He was seen in the office 01/30/2022. Tamsulosin was prescribed, and he was advised to remove his Longoria catheter last night for a voiding trial. However, around that time he experienced fever and weakness and presented to the ER. Urinalysis suggested the presence of a UTI, and laboratory values showed leukocytosis. CT scan shows bilateral nonobstructing renal calculi L>R. He was admitted and is being treated with IV antibiotics. Review of Systems - Constitutional Reports fever, Reports weakness - Genitourinary Reports as per HPI Past Medical History Past Medical History: Thyroid Disorder Additional Past Medical History / Comment(s): Renal calculi. Ventral hernia currrently. History of Any Multi-Drug Resistant Organisms: None Reported Past Surgical History: Back Surgery Additional Past Surgical History / Comment(s): Lumbar surgery, left percutaneous nephrolithotomy Past Anesthesia/Blood Transfusion Reactions: Motion Sickness Past Psychological History: No Psychological Hx Reported Smoking Status: Never smoker Past Alcohol Use History: None Reported Past Drug Use History: None Reported - Past Family History Father Family Medical History: Cancer, CVA/TIA Additional Family Medical History / Comment(s): Melanoma skin cancer Medications and Allergies Home Medications Medication Instructions Recorded Confirmed Type Testosterone [Androgel 1.62% Gel 1 dose TOPICAL DAILY 08/25/13 05/14/20 History Packet] B Complex-Vit C-Vit E-Zinc [Z-Bec] 1 tab PO DAILY 05/09/20 05/14/20 History Cholecalciferol (Vitamin D3) 125 mcg PO DAILY 05/09/20 05/14/20 History [Vitamin D3 (5000 Iu)] Levothyroxine Sodium [Levoxyl] 75 mcg PO DAILY 05/09/20 05/14/20 History Melatonin 5 mg PO HS PRN 05/09/20 05/14/20 History Sildenafil Citrate [Viagra] 50 mg PO DIRECTED PRN 05/09/20 05/14/20 History Vitamin E 400 unit PO DAILY 05/09/20 05/14/20 History flaxseed oiL [[place]-3 Flaxseed Oil] 750 mg PO DAILY 05/09/20 05/14/20 History HYDROcodone/APAP 5-325MG [[place] 1 tab PO Q6HR PRN 3 Days #12 tab 05/14/20 Rx 5-325] Ibuprofen [Motrin] 800 mg PO Q8H #24 tab 05/14/20 Rx Allergies Allergy/AdvReac Type Severity Reaction Status Date / Time No Known Allergies Allergy Verified 02/08/22 21:21 Surgical - Exam Vital Signs Temp Pulse Resp BP Pulse Ox 100.1 F H 133 H 20 92/60 95 02/08/22 21:17 02/08/22 21:17 02/08/22 21:17 02/08/22 21:17 02/08/22 21:17 - General well developed, well nourished, no distress - Respiratory normal respiratory effort - Abdomen Abdomen: soft, non tender, no guarding, no rigid, no rebound - Genitourinary normal penis with no external lesions, testicles non-tender - Psychiatric oriented to time, oriented to person, oriented to place, speech is normal, memory intact Results - Labs 02/08/22 21:58 02/08/22 21:58 Abnormal Lab Results - Last 24 Hours (Table) 02/08/22 02/08/22 02/08/22 Range/Units 21:58 21:58 23:17 WBC 27.5 H (3.8-10.6) k/uL Neutrophils # 25.1 H (1.3-7.7) k/uL Lymphocytes # 0.7 L (1.0-4.8) k/uL Monocytes # 1.2 H (0-1.0) k/uL Sodium 132 L (137-145) mmol/L Creatinine 1.30 H (0.66-1.25) mg/dL Glucose 167 H (74-99) mg/dL POC Glucose (mg/dL) (70-110) mg/dL Phosphorus 1.5 L (2.5-4.5) mg/dL Total Bilirubin 1.4 H (0.2-1.3) mg/dL AST 15 L (17-59) U/L Total Protein 6.1 L (6.3-8.2) g/dL Lipase 13 L (23-300) U/L Urine Protein 1+ H (Negative) Urine Blood Large H (Negative) Ur Leukocyte Esterase Large H (Negative) Urine RBC 24 H (0-5) /hpf Urine WBC >182 H (0-5) /hpf Urine WBC Clumps Moderate H (None) /hpf Urine Bacteria Rare H (None) /hpf Urine Mucus Rare H (None) /hpf 02/09/22 Range/Units 00:28 WBC (3.8-10.6) k/uL Neutrophils # (1.3-7.7) k/uL Lymphocytes # (1.0-4.8) k/uL Monocytes # (0-1.0) k/uL Sodium (137-145) mmol/L Creatinine (0.66-1.25) mg/dL Glucose (74-99) mg/dL POC Glucose (mg/dL) 145 H (70-110) mg/dL Phosphorus (2.5-4.5) mg/dL Total Bilirubin (0.2-1.3) mg/dL AST (17-59) U/L Total Protein (6.3-8.2) g/dL Lipase (23-300) U/L Urine Protein (Negative) Urine Blood (Negative) Ur Leukocyte Esterase (Negative) Urine RBC (0-5) /hpf Urine WBC (0-5) /hpf Urine WBC Clumps (None) /hpf Urine Bacteria (None) /hpf Urine Mucus (None) /hpf Diabetes panel 02/08/22 Range/Units 21:58 Sodium 132 L (137-145) mmol/L Potassium 3.9 (3.5-5.1) mmol/L Chloride 99 (98-107) mmol/L Carbon Dioxide 22 (22-30) mmol/L BUN 16 (9-20) mg/dL Creatinine 1.30 H (0.66-1.25) mg/dL Glucose 167 H (74-99) mg/dL Calcium 8.4 (8.4-10.2) mg/dL AST 15 L (17-59) U/L ALT 23 (4-49) U/L Alkaline Phosphatase 71 (38-126) U/L Total Protein 6.1 L (6.3-8.2) g/dL Albumin 3.7 (3.5-5.0) g/dL Calcium panel 10/30/22 Range/Units 21:58 Calcium 8.4 (8.4-10.2) mg/dL Phosphorus 1.5 L (2.5-4.5) mg/dL Albumin 3.7 (3.5-5.0) g/dL Pituitary panel 02/08/22 Range/Units 21:58 Sodium 132 L (137-145) mmol/L Potassium 3.9 (3.5-5.1) mmol/L Chloride 99 (98-107) mmol/L Carbon Dioxide 22 (22-30) mmol/L BUN 16 (9-20) mg/dL Creatinine 1.30 H (0.66-1.25) mg/dL Glucose 167 H (74-99) mg/dL Calcium 8.4 (8.4-10.2) mg/dL Adrenal panel 02/08/22 Range/Units 21:58 Sodium 132 L (137-145) mmol/L Potassium 3.9 (3.5-5.1) mmol/L Chloride 99 (98-107) mmol/L Carbon Dioxide 22 (22-30) mmol/L BUN 16 (9-20) mg/dL Creatinine 1.30 H (0.66-1.25) mg/dL Glucose 167 H (74-99) mg/dL Calcium 8.4 (8.4-10.2) mg/dL Total Bilirubin 1.4 H (0.2-1.3) mg/dL AST 15 L (17-59) U/L ALT 23 (4-49) U/L Alkaline Phosphatase 71 (38-126) U/L Total Protein 6.1 L (6.3-8.2) g/dL Albumin 3.7 (3.5-5.0) g/dL - Imaging CT scan - abdomen: report reviewed, image reviewed Assessment and Plan (1) UTI (urinary tract infection) Current Visit: Yes Status: Acute Code(s): N39.0 - URINARY TRACT INFECTION, SITE NOT SPECIFIED SNOMED Code(s): 95179846 (2) Acute urinary retention Current Visit: Yes Status: Acute Code(s): R33.8 - OTHER RETENTION OF URINE SNOMED Code(s): 619331578 Plan: The Longoria catheter will be replaced. He will be treated with appropriate antibiotic therapy. Given the recurrent urinary retention, he will undergo urodynamic testing in the office for further evaluation. He may require a TURP. He will also likely require a left percutaneous nephrolithotomy at some point. Time with Patient: Greater than 30
[2022-02-09 09:26] LABS: Basophils % (A) 0 %; Eosinophils % (A) 0 %; HCT 38.3 % (39.0-53.0); HGB 13.1 gm/dL (13.0-17.5); Lymphocytes # (A) 0.9 k/uL (1.0-4.8); Lymphocytes % (A) 3 %; MCH 29.3 pg (25.0-35.0); MCHC 34.3 g/dL (31.0-37.0); MCV 85.3 fL (80.0-100.0); Mean Platelet Volume 8.9; Monocytes # (A) 1.1 k/uL (0-1.0); Monocytes % (A) 4 %; Neutrophils % (A) 91 %; Platelet Count 144 k/uL (150-450); RBC 4.48 m/uL (4.30-5.90); RDW 12.1 % (11.5-15.5); WBC 26.3 k/uL (3.8-10.6)
[2022-02-09 09:38] LABS: African American GFR (CKD) 62 (>60 ml/min/1.73 sqM); Anion Gap 11 mmol/L; Blood Urea Nitrogen 18 mg/dL (9-20); Calcium 7.3 mg/dL (8.4-10.2); Carbon Dioxide 22 mmol/L (22-30); Chloride 101 mmol/L (98-107); Glucose 156 mg/dL (74-99); Non-African American GFR(CKD) 54 (>60 ml/min/1.73 sqM); Potassium 3.8 mmol/L (3.5-5.1); Sodium 134 mmol/L (137-145)
[2022-02-09] MEDS ORDERED: CYCLOBENZAPRINE 10 MG TAB PO PRN (13:17)
[2022-02-09] MEDS ORDERED: DEXTROSE 50% SYRINGE 50 ML IVP PRN ×2 (13:20)
--- NOTE | 2022-02-09 13:24 | P.HPIM ---
History of Present Illness H&P Date: 02/09/22 This is a pleasant 61-year-old male who follows with Dr Chappell in the primary care setting, chronic medical conditions include benign prosthetic hyperplasia, hypothyroidism, renal calculi, ventral hernia, never smoker. Patient has known history of urinary retention found in a previous admission at this month and has been following with urology. Patient was instructed to remove his Longoria catheter on Wednesday evening and to see urology this morning. Unfortunately patient was told to present to the ER as he has had concern for fever and diarrhea that has been ongoing since Wednesday. He denies any chest pain denies shortness of breath. He does report some left sided flank pain. Chest xray negative. Patient had abdominal pelvis CT completed showing bilateral nonobstructing renal culculi with enlarged prostate, mild urinary bladder wall thickening suggesting of substances nonspecific cystitis, minimal atelectasis in the lung bases appears new compared to old. She does with some with some angélica kocytosis white count is 27.5, he also has a low sodium of 132 with a mild renal injury is 16, creatinine 1.30 suspect this is most likely from dehydration as patient has had ongoing diarrhea for the last 3 days. Urinalysis showing large blood, large leukocyte esterace, urine cultures currently pending. There is concern for acute urinary tract infection and patient is started on empiric antibiotics with IV ceftriaxone and urine culture taken. Urology has also been consulted. He is maintained on flomax. REVIEW OF SYSTEMS: CONSTITUTIONAL: reports fever, no malaise, no fatigue. HEENT: No recent visual problems or hearing problems. Denied any sore throat. CARDIOVASCULAR: No chest pain, orthopnea, PND, no palpitations, no syncope. PULMONARY: No shortness of breath, no cough, no hemoptysis. GASTROINTESTINAL: No nausea or vomiting, reports diarrhea, reports left flank pain NEUROLOGICAL: No headaches, no weakness, no numbness. HEMATOLOGICAL: Denies any bleeding or petechiae. GENITOURINARY: Denies any burning micturition, frequency, or urgency. MUSCULOSKELETAL/RHEUMATOLOGICAL: Denies any joint pain, swelling, or any muscle pain. ENDOCRINE: Denies any polyuria or polydipsia. The rest of the 14-point review of systems is negative. PHYSICAL EXAMINATION: GENERAL: The patient is alert and oriented x3, not in any acute distress. Well developed, well nourished. HEENT: Pupils are round and equally reacting to light. EOMI. No scleral icterus. No conjunctival pallor. Normocephalic, atraumatic. No pharyngeal erythema. No thyromegaly. CARDIOVASCULAR: S1 and S2 present. No murmurs, rubs, or gallops. PULMONARY: Chest is clear to auscultation, no wheezing or crackles. ABDOMEN: Soft, nontender, nondistended, normoactive bowel sounds. No palpable organomegaly. Left CVA tenderness MUSCULOSKELETAL: No joint swelling or deformity. EXTREMITIES: No cyanosis, clubbing, or pedal edema. NEUROLOGICAL: Gross neurological examination did not reveal any focal deficits. SKIN: No rashes. Assessment and plan Assessment Acute urinary tract infection possibly catheter associated present on admission with concern for sepsis patient is started on empiric antibiotic coverage and urine culture is pending at this time. Urology on consultation Urinary retention with ongoing outpatient work up maintained on flomax which will be continued Mild acute renal injury most likely prerenal azotemia from dehydration from diarrhea, patient also had urinary retention requiring placement of indwelling catheter, losartan will be held and will repeat labs tomorrow Leukocytosis secondary to acute UTI Hyponatremia, hypovolemic from poor oral intake and GI losses improving with IV fluids which will be continued at this time Diarrhea rule out infectious diarrhea Benign prostatic hyperplasia with moderate enlargement found on CT patient will be resumed on flomax Bilateral nonobstructing renal calculi found on imaging Hypothyroidism resume home medications Hypertension currently normotensive will hold patients blood pressure medication losartan at this time Hyperglycemia check A1C GI Prophylaxis DVT Prophylaxis Full Code The impression and plan of care has been dictated by Blaire Ruiz Nurse Practitioner as directed. Dr. Yash MD I have performed a history and physical examination and medical decision making of this patient, discussed the same with the dictator, and agree with the dictators assessment and plan as written, documented as a scribe. Based on total visit time, I have performed more than 50% of this visit. Past Medical History Past Medical History: Thyroid Disorder Additional Past Medical History / Comment(s): Renal calculi. Ventral hernia currrently. History of Any Multi-Drug Resistant Organisms: None Reported Past Surgical History: Back Surgery Additional Past Surgical History / Comment(s): Lumbar surgery, left percutaneous nephrolithotomy Past Anesthesia/Blood Transfusion Reactions: Motion Sickness Past Psychological History: No Psychological Hx Reported Smoking Status: Never smoker Past Alcohol Use History: None Reported Past Drug Use History: None Reported - Past Family History Father Family Medical History: Cancer, CVA/TIA Additional Family Medical History / Comment(s): Melanoma skin cancer Medications and Allergies Home Medications Medication Instructions Recorded Confirmed Type Cyclobenzaprine [Flexeril] 10 mg PO TID PRN 02/09/22 02/09/22 History Levothyroxine Sodium [Synthroid] 50 mcg PO DAILY 02/09/22 02/09/22 History Losartan [Cozaar] 50 mg PO DAILY 02/09/22 02/09/22 History Tamsulosin [Flomax] 0.4 mg PO HS 02/09/22 02/09/22 History Testosterone [Androgel 1%] 2 packet TOPICAL DAILY 02/09/22 02/09/22 History Allergies Allergy/AdvReac Type Severity Reaction Status Date / Time No Known Allergies Allergy Verified 02/09/22 11:36 Physical Exam Vitals: Vital Signs Temp Pulse Pulse Resp BP BP Pulse Ox 02/09/22 07:49 100.5 F H 131 H 20 101/66 93 L 02/09/22 02:20 98.4 F 107 H 20 144/88 98 02/09/22 01:53 95 18 126/85 98 02/09/22 01:06 98.1 F 98 02/08/22 23:30 98.8 F 107 H 20 110/61 95 02/08/22 23:00 99.3 F 02/08/22 22:40 101.2 F H 114 H 20 94 L 02/08/22 22:08 102.3 F H 123 H 93 L 02/08/22 21:17 100.1 F H 133 H 20 92/60 95 Intake and Output 02/08/22 02/09/22 02/09/22 22:59 06:59 14:59 Intake Total 1150 Output Total 100 700 Balance 1050 -700 Intake: Intake, IV Titration 650 Amount Sodium Chloride 0.9% 1, 650 000 ml @ 130 mls/hr IV . [id number] [facility] Rx#:[id number] Oral 500 Output: Urine 100 700 Other: # Voids 3 Weight 97.522 kg 97.522 kg Results CBC & Chem 7: 02/09/22 08:22 02/09/22 08:22 Labs: Abnormal Lab Results - Last 24 Hours (Table) 02/08/22 02/08/22 02/08/22 Range/Units 21:58 21:58 23:17 WBC 27.5 H (3.8-10.6) k/uL Hct (39.0-53.0) % Plt Count (150-450) k/uL Neutrophils # 25.1 H (1.3-7.7) k/uL Lymphocytes # 0.7 L (1.0-4.8) k/uL Monocytes # 1.2 H (0-1.0) k/uL Sodium 132 L (137-145) mmol/L Creatinine 1.30 H (0.66-1.25) mg/dL Glucose 167 H (74-99) mg/dL POC Glucose (mg/dL) (70-110) mg/dL Calcium (8.4-10.2) mg/dL Phosphorus 1.5 L (2.5-4.5) mg/dL Total Bilirubin 1.4 H (0.2-1.3) mg/dL AST 15 L (17-59) U/L Total Protein 6.1 L (6.3-8.2) g/dL Lipase 13 L (23-300) U/L Urine Protein 1+ H (Negative) Urine Blood Large H (Negative) Ur Leukocyte Esterase Large H (Negative) Urine RBC 24 H (0-5) /hpf Urine WBC >182 H (0-5) /hpf Urine WBC Clumps Moderate H (None) /hpf Urine Bacteria Rare H (None) /hpf Urine Mucus Rare H (None) /hpf 02/09/22 02/09/22 02/09/22 Range/Units 00:28 08:22 08:22 WBC 26.3 H (3.8-10.6) k/uL Hct 38.3 L (39.0-53.0) % Plt Count 144 L (150-450) k/uL Neutrophils # 24.0 H (1.3-7.7) k/uL Lymphocytes # 0.9 L (1.0-4.8) k/uL Monocytes # 1.1 H (0-1.0) k/uL Sodium 134 L (137-145) mmol/L Creatinine 1.42 H (0.66-1.25) mg/dL Glucose 156 H (74-99) mg/dL POC Glucose (mg/dL) 145 H (70-110) mg/dL Calcium 7.3 L (8.4-10.2) mg/dL Phosphorus (2.5-4.5) mg/dL Total Bilirubin (0.2-1.3) mg/dL AST (17-59) U/L Total Protein (6.3-8.2) g/dL Lipase (23-300) U/L Urine Protein (Negative) Urine Blood (Negative) Ur Leukocyte Esterase (Negative) Urine RBC (0-5) /hpf Urine WBC (0-5) /hpf Urine WBC Clumps (None) /hpf Urine Bacteria (None) /hpf Urine Mucus (None) /hpf Microbiology - Last 24 Hours (Table) 02/08/22 23:17 Urine Culture - Preliminary Urine,Voided Assessment and Plan Time with Patient: Less than 30
[2022-02-09 17:33] LABS: Glucose,Whole Blood 133 mg/dL (70-110)
[2022-02-09] MEDS: INSULIN ASPART (NovoLOG) 100 UNIT/ML VIAL SQ SCH ×2 (17:33→20:00)
[2022-02-09 19:45] LABS: Glucose,Whole Blood 138 mg/dL (70-110)
[2022-02-09] MEDS: TAMSULOSIN 0.4 MG CAP.ER.24H PO SCH (20:21)
[2022-02-10] MEDS: LEVOTHYROXINE 50 MCG TAB PO SCH (06:15)
[2022-02-10] MEDS: INSULIN ASPART (NovoLOG) 100 UNIT/ML VIAL SQ SCH ×3 (08:25→17:26)
[2022-02-10 09:21] LABS: Basophils % (A) 0 %; Eosinophils # (A) 0.2 k/uL (0-0.7); Eosinophils % (A) 1 %; HCT 40.5 % (39.0-53.0); Lymphocytes # (A) 1.5 k/uL (1.0-4.8); Lymphocytes % (A) 8 %; MCH 29.4 pg (25.0-35.0); MCHC 34.6 g/dL (31.0-37.0); MCV 85.1 fL (80.0-100.0); Mean Platelet Volume 9.1; Monocytes # (A) 0.7 k/uL (0-1.0); Monocytes % (A) 4 %; Neutrophils # (A) 16.6 k/uL (1.3-7.7); Neutrophils % (A) 86 %; Platelet Count 159 k/uL (150-450); RBC 4.76 m/uL (4.30-5.90); RDW 11.9 % (11.5-15.5); WBC 19.2 k/uL (3.8-10.6)
[2022-02-10 09:27] LABS: ALT 24 U/L (4-49); AST 18 U/L (17-59); African American GFR (CKD) >90 (>60 ml/min/1.73 sqM); Albumin 3.4 g/dL (3.5-5.0); Albumin/Globulin Ratio 1.3; Alkaline Phosphatase 97 U/L (38-126); Anion Gap 9 mmol/L; Blood Urea Nitrogen 11 mg/dL (9-20); Calcium 7.9 mg/dL (8.4-10.2); Carbon Dioxide 25 mmol/L (22-30); Chloride 104 mmol/L (98-107); Globulin 2.6 g/dL; Glucose 108 mg/dL (74-99); Magnesium 1.8 mg/dL (1.6-2.3); Non-African American GFR(CKD) >90 (>60 ml/min/1.73 sqM); Potassium 3.9 mmol/L (3.5-5.1); Sodium 138 mmol/L (137-145); Total Bilirubin 0.7 mg/dL (0.2-1.3)
[2022-02-10] MEDS: SODIUM CHLORIDE 0.9% 1,000 ML IV SCH (12:09)
[2022-02-10] MEDS ORDERED: Phosphorus Replacement Protoco 1 EACH MISC MISCELLANE PRN (15:37)
[2022-02-10] MEDS ORDERED: MAGNESIUM OXIDE 400 MG TAB PO STA (15:39)
--- NOTE | 2022-02-10 15:41 | P.PN ---
Subjective Progress Note Date: 02/10/22 This is a pleasant 61-year-old male who follows with Dr Chappell in the primary care setting, chronic medical conditions include benign prosthetic hyperplasia, hypothyroidism, renal calculi, ventral hernia, never smoker. Patient has known history of urinary retention found in a previous admission at this month and has been following with urology. Patient was instructed to remove his Longoria catheter on Wednesday evening and to see urology this morning. Unfortunately patient was told to present to the ER as he has had concern for fever and diarrhea that has been ongoing since Wednesday. He denies any chest pain denies shortness of breath. He does report some left sided flank pain. Chest xray negative. Patient had abdominal pelvis CT completed showing bilateral nonobstructing renal culculi with enlarged prostate, mild urinary bladder wall thickening suggesting of substances nonspecific cystitis, minimal atelectasis in the lung bases appears new compared to old. She does with some with some leukocytosis white count is 27.5, he also has a low sodium of 132 with a mild renal injury is 16, creatinine 1.30 suspect this is most likely from dehydration as patient has had ongoing diarrhea for the last 3 days. Urinalysis showing large blood, large leukocyte esterace, urine cultures currently pending. There is concern for acute urinary tract infection and patient is started on empiric antibiotics with IV ceftriaxone and urine culture taken. Urology has also been consulted. He is maintained on flomax. 02/10/2022 Patient is evaluated today resting in bed. There are no acute events overnight. Urine culture is pending showing gram negative bacilli, currently he continues on IV antibiotics empirically. He reports improvement in diarrhea, tolerating diet. He has remained afebrile in the last 24 hours. Heart rate slightly tachycardic in the 110s, blood pressure 141/85, 96% room air. White count is improved today down to 19.2, sodium 138, potassium 3.9, glucose 108, phosphorous 2.0, magnesium 1.8. Electrolyte replacements ordered. Review of Systems Constitutional: Denied any fatigue denied any fever. Cardio vascular: denied any chest pain, palpitations Gastrointestinal: denied any nausea, vomiting, diarrhea Pulmonary: Denied any shortness of breath cough Neurologic denied any new focal deficits All inpatient medications were reviewed and appropriate changes in these medications as dictated in the interval history and assessment and plan. PHYSICAL EXAMINATION: GENERAL: The patient is alert and oriented x3, not in any acute distress. Well developed, well nourished. HEENT: Pupils are round and equally reacting to light. EOMI. No scleral icterus. No conjunctival pallor. Normocephalic, atraumatic. No pharyngeal erythema. No thyromegaly. CARDIOVASCULAR: S1 and S2 present. No murmurs, rubs, or gallops. PULMONARY: Chest is clear to auscultation, no wheezing or crackles. ABDOMEN: Soft, nontender, nondistended, normoactive bowel sounds. No palpable organomegaly. Left CVA tenderness MUSCULOSKELETAL: No joint swelling or deformity. EXTREMITIES: No cyanosis, clubbing, or pedal edema. NEUROLOGICAL: Gross neurological examination did not reveal any focal deficits. SKIN: No rashes. Assessment and plan Assessment Acute urinary tract infection possibly catheter associated present on admission with concern for sepsis patient is started on empiric antibiotic coverage and urine culture is pending at this time. Urology on consultation Urinary retention with ongoing outpatient work up maintained on flomax which will be continued Mild acute renal injury most likely prerenal azotemia from dehydration from diarrhea, patient also had urinary retention requiring placement of indwelling catheter, creatinine normalized at 0.90. Leukocytosis secondary to acute UTI improving. Hyponatremia, hypovolemic from poor oral intake and GI losses improving with IV fluids which will be continued at this time, sodium now 138, IV fluids will be decreased. Diarrhea rule out infectious diarrhea Benign prostatic hyperplasia with moderate enlargement found on CT patient will be resumed on flomax Bilateral nonobstructing renal calculi found on imaging Hypothyroidism resume home medications Hypertension currently normotensive will hold patients blood pressure medication losartan at this time Hyperglycemia check A1C GI Prophylaxis DVT Prophylaxis Full Code The impression and plan of care has been dictated by Blaire Ruiz, Nurse Practitioner as directed. Dr. Yash MD I have performed a history and physical examination and medical decision making of this patient, discussed the same with the dictator, and agree with the dictators assessment and plan as written, documented as a scribe. Based on total visit time, I have performed more than 50% of this visit. Objective - Vital Signs Vital signs: Vital Signs Temp 98.1 F 02/10/22 15:13 Pulse 114 H 02/10/22 15:13 Resp 18 02/10/22 15:13 BP 141/85 02/10/22 15:13 Pulse Ox 96 02/10/22 15:13 FiO2 Intake & Output 02/09/22 02/10/22 02/10/22 18:59 06:59 18:59 Intake Total 1280 Output Total 3500 3000 Balance -2220 -3000 Intake: Oral 1280 Output: Urine 3500 3000 Other: Voiding Method Indwelling Catheter - Labs CBC & Chem 7: 02/10/22 08:34 02/10/22 08:34 Labs: Abnormal Lab Results - Last 24 Hours (Table) 02/09/22 02/09/22 02/10/22 Range/Units 17:32 19:44 08:34 WBC 19.2 H (3.8-10.6) k/uL Neutrophils # 16.6 H (1.3-7.7) k/uL Glucose (74-99) mg/dL POC Glucose (mg/dL) 133 H 138 H (70-110) mg/dL Calcium (8.4-10.2) mg/dL Phosphorus (2.5-4.5) mg/dL Total Protein (6.3-8.2) g/dL Albumin (3.5-5.0) g/dL 02/10/22 Range/Units 08:34 WBC (3.8-10.6) k/uL Neutrophils # (1.3-7.7) k/uL Glucose 108 H (74-99) mg/dL POC Glucose (mg/dL) (70-110) mg/dL Calcium 7.9 L (8.4-10.2) mg/dL Phosphorus 2.0 L (2.5-4.5) mg/dL Total Protein 6.0 L (6.3-8.2) g/dL Albumin 3.4 L (3.5-5.0) g/dL Microbiology - Last 24 Hours (Table) 02/08/22 23:17 Urine Culture - Preliminary Urine,Voided Gram Neg Bacilli 02/08/22 21:50 Blood Culture - Preliminary Blood No Growth after 24 hours 02/08/22 21:35 Blood Culture - Preliminary Blood No Growth after 24 hours Assessment and Plan Time with Patient: Less than 30
[2022-02-10] MEDS ORDERED: POTASSIUM PHOSPHATE 10 MMOL in SODIUM CHLORIDE 0.9% 250 ML IV SCH (15:45)
[2022-02-10] MEDS: METOPROLOL TARTRATE 25 MG TAB PO SCH (15:56)
[2022-02-10] MEDS ORDERED: SODIUM PHOSPHATE 10 MMOL in SODIUM CHLORIDE 0.9% 100 ML IVPB SCH (17:00)
[2022-02-10] MEDS: SODIUM PHOSPHATE 10 MMOL in SODIUM CHLORIDE 0.9% 250 ML IVPB SCH ×2 (18:07→22:13)
[2022-02-10 19:29] VITALS: RESP 17
[2022-02-10] MEDS: TAMSULOSIN 0.4 MG CAP.ER.24H PO SCH (21:39)
[2022-02-11] MEDS: LEVOTHYROXINE 50 MCG TAB PO SCH (05:55)
[2022-02-11] MEDS: SODIUM CHLORIDE 0.9% 1,000 ML IV SCH (05:56)
[2022-02-11 07:55] VITALS: BP 136/72; PULSE 96; TEMP 98.4
[2022-02-11] MEDS: METOPROLOL TARTRATE 25 MG TAB PO SCH (09:04)
[2022-02-11 10:44] LABS: HCT 37.3 % (39.6-50.0); HGB 12.5 g/dL (13.0-17.0); MCH 28.2 pg (27.0-32.0); MCHC 33.5 g/dL (32.0-37.0); MCV 84.2 fL (80.0-97.0); Mean Platelet Volume 11.5 fL (9.5-12.2); NRBC Per 100 WBC 0 /100 WBCS (0.0-0.0); Platelet Count 185 X 10*3/uL (140-440); RBC 4.43 X 10*6/uL (4.40-5.60); RDW 11.9 % (11.5-14.5); WBC 11.41 X 10*3/uL (4.50-10.00)
--- NOTE | 2022-02-12 22:53 | P.DS ---
Providers Date of admission: 02/09/22 00:25 Attending physician: Radha Tang Consults: 02/09/22 00:25 Consult Physician Routine Consulting Provider: Rickie Topete Consult Reason/Comments: retention Do you want consulting provider notified?: Yes Primary care physician: Misti Cortez Hospital Course: Final Diagnosis Acute urinary tract infection possibly catheter associated present on admission with possible sepsis, secondary to pseudomonas aeruginosa uti. Urinary retention with ongoing outpatient work up maintained on flomax which will be continued Mild acute renal injury most likely prerenal azotemia from dehydration from diarrhea, patient also had urinary retention requiring placement of indwelling catheter, creatinine normalized at 0.90. Leukocytosis secondary to acute UTI improving. Hyponatremia, hypovolemic from poor oral intake and GI losses, resolved with IV fluids Diarrhea rule out infectious diarrhea Benign prostatic hyperplasia with moderate enlargement found on CT patient will be resumed on flomax Bilateral nonobstructing renal calculi found on imaging Hypothyroidism resume home medications Hypertension currently normotensive will hold patients blood pressure medication losartan at this time Hyperglycemia check A1C Full Code Discharge Disposition Patient is stable for discharge home in stable condition. Patient to continue with indwelling catheter and follow up with urology outpatient. Patient is discharged on 7 days of oral ciprofloxacin 500 mg BID. Patient to follow up with Dr. Chappell in 1 to 2 days. Losartan has been discontinued secondary to acute renal injury which has resolved. However patient was tachycardic and was started on metoprolol 25 mg po bid which is continued on discharge. Repeat BMP in 2 to 3 days outpatient. Hospital Course This is a 61 year old male who follows with Dr. Chappell and also follows with Dr. Topete for urinary retention. Patient began having fever chills and left sided flank pain as well as diarrhea last Wednesday. He also was instructed to remove his indwelling catheter Wednesday night and when he was unable to void he notified urology who had instructed him to come to the emergency room. He presents with white count of 27.5, and was tachycardic. Patient was started on empiric antibiotic coverage with IV ceftriaxone. Abdominal pelvis CT completed showing bilateral nonobstructing renal calculi, enlarged prostate, mild urinary bladder wall thickening suggestive of nonspecific cystitis, minimal atelectasis at lung base new compared to old exam. Urology was consulted. Indwelling forrest catheter was placed. His symptoms improved with IV hydration. He also had creatinine of 1.30 on admission most likely from dehydration from diarrhea. Patient had low sodium of 132. His urine culture finalized to Pseudomonas Aeruginosa woods sensitive and patient will be discharged on oral cipro for 7 days additional days. Blood cultures are negative. He is instructed to see urology outpatient and also his primary care provider Dr. Chappell. 02/11/2022 Patient is evaluated today resting in bed. He denies shortness of breath, no chest pain. States diarrhea has resolved. His left flank pain has also resolved. His fever and chills have resolved. Lungs are clear, S1 S2 auscultated, abdomen is soft and nontender. No CVA tenderness noted. Urine clear yellow. Focal neurological exam is negative, he is alert x 3 and overall states he feels better and would like to be discharged home today. His white blood cell count has improved to 11.41. Sodium 138, BUN 11, creatinine 0.90, glucose 108. Temperature is 98.4, heart rate 96, blood pressure 136/72, 95% room air. Patient to be discharged today with above mentioned recommendations. Please see medication reconciliation for a list of current medication. Thank you for allowing us to participate in the care of this patient. The impression and plan of care has been dictated by Blaire Ruiz, Nurse Practitioner as directed. Dr. Yash MD I have performed a history and physical examination and medical decision making of this patient, discussed the same with the dictator, and agree with the dictators assessment and plan as written, documented as a scribe. Based on total visit time, I have performed more than 50% of this visit. Patient Condition at Discharge: Stable Plan - Discharge Summary Discharge Rx Participant: Yes New Discharge Prescriptions: New Acetaminophen Tab [Tylenol] 650 mg PO Q6HR PRN tab PRN Reason: Mild Pain Or Fever > 100.5 Ciprofloxacin HCl [Cipro] 500 mg PO BID 7 Days #14 tab Metoprolol Tartrate [Lopressor] 25 mg PO BID #60 tab Famotidine [Pepcid] 20 mg PO BID 7 Days #14 tablet Continue Testosterone [Androgel 1%] 2 packet TOPICAL DAILY Tamsulosin [Flomax] 0.4 mg PO HS Cyclobenzaprine [Flexeril] 10 mg PO TID PRN PRN Reason: Muscle Spasm Levothyroxine Sodium [Synthroid] 50 mcg PO DAILY Discontinued Losartan [Cozaar] 50 mg PO DAILY Discharge Medication List Cyclobenzaprine [Flexeril] 10 mg PO TID PRN 02/09/22 [History] Levothyroxine Sodium [Synthroid] 50 mcg PO DAILY 02/09/22 [History] Tamsulosin [Flomax] 0.4 mg PO HS 02/09/22 [History] Testosterone [Androgel 1%] 2 packet TOPICAL DAILY 02/09/22 [History] Acetaminophen Tab [Tylenol] 650 mg PO Q6HR PRN tab 02/11/22 [Rx] Ciprofloxacin HCl [Cipro] 500 mg PO BID 7 Days #14 tab 02/11/22 [Rx] Famotidine [Pepcid] 20 mg PO BID 7 Days #14 tablet 02/11/22 [Rx] Metoprolol Tartrate [Lopressor] 25 mg PO BID #60 tab 02/11/22 [Rx] Follow up Appointment(s)/Referral(s): Diego Chappell MD [Primary Care Provider] - 1-2 days Rickie Topete MD [STAFF PHYSICIAN] - 1 Week Ambulatory/Diagnostic Orders: Basic Metabolic Panel [LAB.AMB] Time Frame: 3 Days, Location: None Selected Complete Blood Count w/diff [LAB.AMB] Time Frame: 3 Days, Location: None Selected Patient Instructions/Handouts: Urinary Tract Infection in Men (DC), Forrest Catheter Placement and Care (ED) Activity/Diet/Wound Care/Special Instructions: Follow up with urology in 1 week on discharge Continue antibiotics for 1 week Pepcid has been added to prevent GI upset while on antibiotic therapy Blood pressure medication has been changed. Losartan discontinued due to acute kidney injury on admission Kidney function has improved, recommend to repeat labs in 2 to 3 days. Monitor blood pressure and pulse rate and follow up with your primary care provider Dr Chappell in 1 to 2 days. Discharge/Stand Alone Forms: Work/Release Restrictions Form Discharge Disposition: HOME SELF-CARE
== END 2022-02-11 14:08 | disposition home or self-care (01) | DRG 698 ==
LOC: EC 20:57 → 4SSUR 02-09 00:25
PROVIDERS: ADMIT Hospitalist; ATTEND Hospitalist
DX: T83.518A Infection and inflammatory reaction due to other urinary catheter, initial encounter (principal); A41.52 Sepsis due to Pseudomonas; N30.00 Acute cystitis without hematuria; N17.9 Acute kidney failure, unspecified; E87.1 Hypo-osmolality and hyponatremia; Z20.822 Contact with and (suspected) exposure to COVID-19; R19.7 Diarrhea, unspecified; N40.1 Benign prostatic hyperplasia with lower urinary tract symptoms; R79.89 Other specified abnormal findings of blood chemistry; K43.9 Ventral hernia without obstruction or gangrene; E86.1 Hypovolemia; E03.9 Hypothyroidism, unspecified; R33.8 Other retention of urine; N20.0 Calculus of kidney; I10 Essential (primary) hypertension; R73.9 Hyperglycemia, unspecified; E86.0 Dehydration; Z79.890 Hormone replacement therapy; Z79.899 Other long term (current) drug therapy; Z87.442 Personal history of urinary calculi; Y84.6 Urinary catheterization as the cause of abnormal reaction of the patient, or of later complication, without mention of misadventure at the time of the procedure
CPT/HCPCS: 36415; 71045; 74176; 80048; 80053; 81001; 83036; 83605; 83690; 83735; 84100; 85025; 85027; 87040; 87077; 87086; 87186; 87502; 87635; 96361; 96365; 96375; 96376; 99291

== ENCOUNTER → 2022-02-14 | Outpatient (CLI) | payer BC ==
[2022-02-15 03:56] LABS: Basophils # (A) 0.1 k/uL (0-0.2); Basophils % (A) 1 %; Eosinophils # (A) 0.2 k/uL (0-0.7); Eosinophils % (A) 2 %; HCT 48.1 % (39.0-53.0); HGB 16.1 gm/dL (13.0-17.5); Lymphocytes # (A) 1.5 k/uL (1.0-4.8); Lymphocytes % (A) 17 %; MCH 29.1 pg (25.0-35.0); MCHC 33.4 g/dL (31.0-37.0); MCV 86.9 fL (80.0-100.0); Mean Platelet Volume 10.4; Monocytes # (A) 0.7 k/uL (0-1.0); Monocytes % (A) 7 %; Neutrophils # (A) 6.2 k/uL (1.3-7.7); Neutrophils % (A) 69 %; Platelet Count 263 k/uL (150-450); RBC 5.53 m/uL (4.30-5.90); RDW 12.3 % (11.5-15.5); WBC 8.9 k/uL (3.8-10.6)
[2022-02-15 09:16] LABS: African American GFR (CKD) 87.6 (60.0-200.0); Anion Gap 10.2 mmol/L (10.00-18.00); BUN/Creat Ratio 15.79 Ratio (12.00-20.00); Blood Urea Nitrogen 16.9 mg/dL (9.0-27.0); Calcium 9.4 mg/dL (8.7-10.3); Carbon Dioxide 28.1 mmol/L (20.0-27.5); Non-African American GFR(CKD) 75.6 (60.0-200.0); Potassium 5.4 mmol/L (3.5-5.5)
== END | disposition home or self-care (01) ==
LOC: LABWHC1 10:02
PROVIDERS: ATTEND Nurse Practitioner Family
DX: N17.9 Acute kidney failure, unspecified (principal); D72.829 Elevated white blood cell count, unspecified
CPT/HCPCS: 36415; 80048; 85025

== ENCOUNTER → 2022-03-31 | Outpatient (CLI) | payer BC | END | disposition home or self-care (01) | LOC: LABWHC1 12:19 | PROVIDERS: ATTEND Internal Medicine Endocrinology, Diabetes & Metabolism | DX: E03.8 Other specified hypothyroidism (principal) | CPT/HCPCS: 36415; 84443 ==

== ENCOUNTER → 2022-06-30 | Outpatient (CLI) | payer BC ==
[2022-06-30 18:42] LABS: HCT 50.1 % (39.6-50.0); HGB 16.3 g/dL (13.0-17.0); MCH 27.7 pg (27.0-32.0); MCHC 32.5 g/dL (32.0-37.0); MCV 85.1 fL (80.0-97.0); Mean Platelet Volume 11.9 fL (9.5-12.2); NRBC Per 100 WBC 0 /100 WBCS (0.0-0.0); Platelet Count 170 X 10*3/uL (140-440); RBC 5.89 X 10*6/uL (4.40-5.60); RDW 12.4 % (11.5-14.5); WBC 5.67 X 10*3/uL (4.50-10.00)
[2022-06-30 19:38] LABS: African American GFR (CKD) 84.7 (60.0-200.0); Albumin 4.4 g/dL (3.8-4.9); Albumin/Globulin Ratio 1.63 (1.60-3.17); Anion Gap 10.6 mmol/L (10.00-18.00); BUN/Creat Ratio 12.82 Ratio (12.00-20.00); Blood Urea Nitrogen 14.1 mg/dL (9.0-27.0); Calcium 9.6 mg/dL (8.7-10.3); Carbon Dioxide 28.4 mmol/L (20.0-27.5); Globulin 2.7 g/dL (1.6-3.3); Non-African American GFR(CKD) 73.1 (60.0-200.0); Potassium 4.3 mmol/L (3.5-5.5); Total Bilirubin 0.5 mg/dL (0.30-1.20); Total Protein 7.1 g/dL (6.2-8.2)
== END | disposition home or self-care (01) ==
LOC: LABWHC1 11:43
PROVIDERS: ATTEND Internal Medicine Endocrinology, Diabetes & Metabolism
DX: E03.8 Other specified hypothyroidism (principal); E29.1 Testicular hypofunction; N20.0 Calculus of kidney
CPT/HCPCS: 36415; 80053; 82306; 83970; 84153; 84403; 84443; 85027

== ENCOUNTER → 2022-11-04 | Outpatient (CLI) | payer BC ==
[2022-11-04 17:38] LABS: Prostate Specific Antigen 3.4 ng/mL (0.000-4.500)
[2022-11-04 17:47] LABS: HCT 49.3 % (39.6-50.0); HGB 16.1 d/dL (13.0-17.0); MCH 28.3 pg (27.0-32.0); MCHC 32.7 d/dL (32.0-37.0); MCV 86.6 FL (80.0-97.0); Mean Platelet Volume 11.4 FL (9.5-12.2); NRBC Per 100 WBC 0 X 10*3/uL (0.00-0.01); Platelet Count 196 X 10*3/uL (140-440); RBC 5.69 X 10*6/uL (4.40-5.60); RDW 12.5 % (11.5-14.5); WBC 7.32 X 10*3/uL (4.50-10.00)
== END | disposition home or self-care (01) ==
LOC: LABWHC1 09:53
PROVIDERS: ATTEND Internal Medicine Endocrinology, Diabetes & Metabolism
DX: E03.8 Other specified hypothyroidism (principal); E29.1 Testicular hypofunction
CPT/HCPCS: 36415; 84153; 84403; 84443; 85027

== ENCOUNTER → 2023-04-02 | Outpatient (CLI) | payer BC ==
[2023-04-02 15:53] LABS: Basophils # (A) 0.03 X 10*3/uL (0.00-0.10); Basophils % (A) 0.5 %; Eosinophils # (A) 0.09 X 10*3/uL (0.04-0.35); Eosinophils % (A) 1.4 %; HCT 51.3 % (39.6-50.0); HGB 16.8 g/dL (13.0-17.0); Lymphocytes # (A) 1.55 X 10*3/uL (0.90-5.00); Lymphocytes % (A) 24.3 %; MCH 27.8 pg (27.0-32.0); MCHC 32.7 g/dL (32.0-37.0); MCV 84.9 FL (80.0-97.0); Mean Platelet Volume 11.8 FL (9.5-12.2); Monocytes # (A) 0.45 X 10*3/uL (0.20-1.00); Monocytes % (A) 7.1 %; NRBC Per 100 WBC 0 X 10*3/uL (0.00-0.01); Neutrophils # (A) 4.23 X 10*3/uL (1.80-7.70); Neutrophils % (A) 66.4 %; Platelet Count 196 X 10*3/uL (140-440); RBC 6.04 X 10*6/uL (4.40-5.60); RDW 12.4 % (11.5-14.5); WBC 6.37 X 10*3/uL (4.50-10.00)
[2023-04-02 16:24] LABS: ALT 31 U/L (10-49); AST 18 U/L (14-35); Albumin 4.3 g/dL (3.8-4.9); Albumin/Globulin Ratio 1.72 Ratio (1.60-3.17); Alkaline Phosphatase 68 U/L (41-126); BUN/Creat Ratio 9.17 Ratio (12.00-20.00); Calcium 9.5 mg/dL (8.7-10.3); Carbon Dioxide 27.8 mmol/L (21.6-31.8); Chloride 104 mmol/L (96-109); Chol/HDL Ratio 7.75 Ratio; Globulin 2.5 g/dL (1.6-3.3); Glucose 133 mg/dL (70-110); LDL Cholesterol,Calculated 155.7 mg/dL (0.0-131.0); Potassium 4.5 mmol/L (3.5-5.5); Sodium 143 mmol/L (135-145); T4, Free (Free Thyroxine) 1.28 ng/dL (0.80-1.80); Total Bilirubin 0.6 mg/dL (0.3-1.2); Total Protein 6.8 g/dL (6.2-8.2)
== END | disposition home or self-care (01) ==
LOC: LABWHC1 09:37
PROVIDERS: ATTEND Internal Medicine Endocrinology, Diabetes & Metabolism
DX: Z12.5 Encounter for screening for malignant neoplasm of prostate (principal); I10 Essential (primary) hypertension; E78.2 Mixed hyperlipidemia; E03.8 Other specified hypothyroidism; R73.02 Impaired glucose tolerance (oral)
CPT/HCPCS: 36415; 80053; 80061; 83036; 84153; 84403; 84439; 84443; 84481; 85025

== ENCOUNTER → 2023-09-22 | Outpatient (CLI) | payer BC | END | disposition home or self-care (01) | LOC: LABWHC1 10:21 | PROVIDERS: ATTEND Urology | DX: R97.20 Elevated prostate specific antigen [PSA] (principal) | CPT/HCPCS: 36415; 84153 ==

== ENCOUNTER → 2023-09-29 | Outpatient (CLI) | payer BC ==
--- NOTE | 2023-09-29 08:18 | XR ---
EXAMINATION TYPE: XR KUB DATE OF EXAM: 09/29/2023 HISTORY: Pain Comparison: 01/26/2022 Single KUB is submitted for interpretation. Findings: Right renal calculi: 5 mm right renal calculus mid to lower pole. Right ureteral calculi: None Visualized. Left renal calculi: Several left-sided renal calculi noted measuring up to 8 mm. Left ureteral calculi: None Visualized. Pelvic calcifications: Multiple stable phleboliths. Bowel gas pattern is unremarkable. No free air. No mass effects. IMPRESSION: 1. As above
== END | disposition home or self-care (01) ==
LOC: RADXRMAIN 07:32
PROVIDERS: ATTEND Urology
DX: N20.0 Calculus of kidney (principal)
CPT/HCPCS: 74018

== ENCOUNTER → 2024-01-25 | Outpatient (CLI) | payer BC | END | disposition home or self-care (01) | LOC: LABWHC1 11:00 | PROVIDERS: ATTEND Urology | DX: R97.20 Elevated prostate specific antigen [PSA] (principal) | CPT/HCPCS: 36415; 84153 ==

== ENCOUNTER → 2024-03-16 | Outpatient (CLI) | payer BC ==
[2024-03-16 16:02] LABS: Basophils # (A) 0.02 X 10*3/uL (0.00-0.10); Basophils % (A) 0.3 %; Eosinophils # (A) 0.09 X 10*3/uL (0.04-0.35); Eosinophils % (A) 1.4 %; HCT 46.8 % (39.6-50.0); HGB 15.7 g/dL (13.0-17.0); Lymphocytes # (A) 1.58 X 10*3/uL (0.90-5.00); Lymphocytes % (A) 24.3 %; MCH 29.3 pg (27.0-32.0); MCHC 33.5 g/dL (32.0-37.0); MCV 87.5 FL (80.0-97.0); Mean Platelet Volume 11.8 FL (9.5-12.2); Monocytes # (A) 0.44 X 10*3/uL (0.20-1.00); Monocytes % (A) 6.8 %; NRBC Per 100 WBC 0 X 10*3/uL (0.00-0.01); Neutrophils # (A) 4.37 X 10*3/uL (1.80-7.70); Platelet Count 189 X 10*3/uL (140-440); RBC 5.35 X 10*6/uL (4.40-5.60); RDW 12.1 % (11.5-14.5); WBC 6.51 X 10*3/uL (4.50-10.00)
[2024-03-16 16:12] LABS: Blood Urea Nitrogen 13.1 mg/dL (9.0-27.0); Carbon Dioxide 26.4 mmol/L (21.6-31.8); Chloride 104 mmol/L (96-109); Glucose 128 mg/dL (70-110); Potassium 4.3 mmol/L (3.5-5.5); Sodium 141 mmol/L (135-145)
== END | disposition home or self-care (01) ==
LOC: LABPAT 11:30
PROVIDERS: ATTEND Urology
DX: Z01.818 Encounter for other preprocedural examination (principal); N20.0 Calculus of kidney
CPT/HCPCS: 80048; 85025; 87086

== ENCOUNTER 2024-03-30 05:51 | Day surgery (SDC) | payer BC ==
--- NOTE | 2024-03-29 22:07 | P.GSHP ---
History of Present Illness H&P Date: 03/29/24 Chief Complaint: Left flank pain The patient is a 63-year-old white male with a history of urolithiasis. He has recently experienced left flank pain. He was treated for a Pseudomonas UTI earlier this year. His PSA level was elevated at that time, but has since normalized. A KUB x-ray in September 2023 showed a 5 mm right renal calculus and several left renal calculi measuring up to 8 mm in size. He was offered the options of observation, extracorporal shockwave lithotripsy (ESWL), and ureteroscopy with laser lithotripsy. He has elected to undergo the latter and comes for this reason. - Constitutional Constitutional: Denies chills, Denies fever - Genitourinary (Male) Genitourinary: Reports flank pain, Reports kidney stones Past Medical History Past Medical History: Prostate Disorder, Thyroid Disorder Additional Past Medical History / Comment(s): Renal calculi. BPH History of Any Multi-Drug Resistant Organisms: None Reported Past Surgical History: Back Surgery, Hernia Repair Additional Past Surgical History / Comment(s): Lumbar surgery, left percutaneous nephrolithotomy, colonoscopy Past Anesthesia/Blood Transfusion Reactions: Motion Sickness Additional Past Anesthesia/Blood Transfusion Reaction / Comment(s): has had scope patch before. Smoking Status: Never smoker - Past Family History Father Family Medical History: Cancer, CVA/TIA Additional Family Medical History / Comment(s): Melanoma skin cancer Medications and Allergies Home Medications Medication Instructions Recorded Confirmed Type Levothyroxine Sodium [Synthroid] 100 mcg PO DAILY 02/09/22 03/28/24 History Tamsulosin [Flomax] 0.4 mg PO HS 02/09/22 03/28/24 History Testosterone [Androgel 1%] 2 packet TOPICAL DAILY 02/09/22 03/28/24 History Acetaminophen Tab [Tylenol] 650 mg PO Q6HR PRN tab 02/11/22 03/28/24 Rx Allergies Allergy/AdvReac Type Severity Reaction Status Date / Time No Known Allergies Allergy Verified 03/28/24 15:58 Surgical - Exam - General well developed, well nourished, no distress - Respiratory normal respiratory effort - Abdomen Abdomen: soft, non tender, no guarding, no rigid, no rebound - Genitourinary normal penis with no external lesions, testicles non-tender - Psychiatric oriented to time, oriented to person, oriented to place, speech is normal, memory intact Results - Imaging Abdominal x-ray: report reviewed, image reviewed CT scan - abdomen: report reviewed Assessment and Plan (1) Calculus of kidney Status: Acute Code(s): N20.0 - CALCULUS OF KIDNEY SNOMED Code(s): 08750389 Plan: Cystoscopy, bilateral ureteroscopy with Holmium laser lithotripsy and stone basketing, bilateral ureteral stent insertion. The procedure has been reviewed in detail with the patient. He has been made aware of potential risks, which include anesthesia, bleeding, infection, inability to remove all calculi, and ureteral injury.
[2024-03-30] MEDS ORDERED: HYDROmorphone 0.5 MG/0.5 ML SYRINGE IVP PRN (06:21)
[2024-03-30] MEDS ORDERED: MIDAZOLAM 2 MG/2 ML VIAL IV PRN (06:21)
[2024-03-30] MEDS ORDERED: LIDOCAINE 1% (10MG/ML) FOR IV START INTRADERMA PRN (06:21)
[2024-03-30] MEDS ORDERED: fentaNYL (PF) 50 MCG/ML 2 ML AMP IVP PRN (06:21)
--- NOTE | 2024-03-30 06:24 | XR ---
EXAMINATION TYPE: XR KUB DATE OF EXAM: 03/30/2024 6:18 AM CLINICAL HISTORY: Bilateral renal calculi TECHNIQUE: Single supine KUB image of the abdomen is obtained. COMPARISON: Abdominal x-ray September 29, 2023. FINDINGS: Right renal calculi: Nonvisualized. Right ureteral calculi: None Visualized. Left renal calculi: Persistent 2 left-sided renal calculi noted measuring up to 7 mm. Left ureteral calculi: None Visualized. Pelvic calcifications: Multiple stable bilateral phleboliths. No abnormal small or large bowel dilatation. IMPRESSION: Left-sided nephrolithiasis remains present. [facility], , 03/30/2024 6:22 AM
[2024-03-30] MEDS: IV FLUID CONTINUATION 1,000 ML IV ONE (06:51)
[2024-03-30] MEDS: ONDANSETRON 4 MG/2 ML VIAL IVP ONE (06:55)
[2024-03-30] MEDS: DEXAMETHASONE SOD PHOSPHATE 4 MG/ML 1 ML VIAL IV ONE (06:55)
[2024-03-30] MEDS: LACTATED RINGERS 1,000 ML IV SCH (06:57)
[2024-03-30] MEDS: SCOPOLAMINE 1 MG/72 HR PATCH TRANSDERM STA (06:57)
[2024-03-30] MEDS ORDERED: KETOROLAC 15 MG/ML 1 ML VIAL ONE (07:30)
[2024-03-30] MEDS ORDERED: PROPOFOL 10 MG/ML 20 ML VIAL IV ONE (07:30)
[2024-03-30] MEDS ORDERED: MIDAZOLAM 2 MG/2 ML VIAL ONE (07:30)
[2024-03-30] MEDS ORDERED: DEXAMETHASONE SOD PHOSPHATE 10 MG/ML 1 ML VIAL ONE (07:30)
[2024-03-30] MEDS ORDERED: LIDOCAINE 1% INJ 10MG/ML (20 ML MDV) ONE (07:30)
[2024-03-30] MEDS ORDERED: ROCURONIUM 10 MG/ML (5 ML VIAL) IV ONE (07:30)
[2024-03-30] MEDS ORDERED: SUCCINYLCHOLINE CHLORIDE 200 MG/10 ML VIAL IV ONE (07:30)
[2024-03-30] MEDS ORDERED: PHENYLEPHRINE-0.9% NACL SYG 1,000 MCG/10 ML SYRINGE ONE (07:30)
[2024-03-30] MEDS ORDERED: fentaNYL (PF) 50 MCG/ML 2 ML AMP ONE (07:30)
[2024-03-30] MEDS ORDERED: NEOSTIGMINE 1 MG/ML 10 ML VIAL ONE (07:30)
[2024-03-30] MEDS ORDERED: GLYCOPYRROLATE 0.2 MG/ML 2 ML VIAL ONE (07:30)
[2024-03-30] MEDS: LACTATED RINGERS 1,000 ML IV ONE (08:13)
[2024-03-30 10:02] VITALS: RESP 16; TEMP 97
--- NOTE | 2024-03-30 10:43 | FL ---
EXAMINATION TYPE: FL guidance operating room DATE OF EXAM: 03/30/2024 10:26 AM COMPARISON: Pre Operative Images if available both CT/MRI or plain film CLINICAL INDICATION: Male, 63 years old with history of Cysto for Bilateral Kidney Stones; TECHNIQUE: FL guidance operating room, multiple fluoroscopic images provided for procedure. Total fluoroscopy time: 38.6 seconds Total submitted images to PACS: 14 DAP: [id number] mGym2 Gycm2 uGym2 cGycm2 or equivalent. FINDINGS: Fluoroscopic images during injection for pain management demonstrate multilevel degeneration changes throughout the spine. No evidence for fracture. No acute process identified. IMPRESSION: 1. No evidence for intraoperative complication. 2. Please see the operative/procedural note for further details. [facility], , 03/30/2024 10:41 AM
--- NOTE | 2024-03-30 10:55 | P.OP ---
Date of Procedure: 03/30/24 Preoperative Diagnosis: Bilateral renal calculi Postoperative Diagnosis: Same Procedure(s) Performed: Cystoscopy, bilateral ureteroscopy with Holmium laser lithotripsy, left renal stone basketing, bilateral ureteral stent insertion Anesthesia: MAHOGANY Surgeon: Rickie Topete Estimated Blood Loss (ml): 20 IV fluids (ml): 1,100 Pathology: other (Left renal calculus fragments, sent for chemical analysis) Condition: stable Disposition: PACU Indications for Procedure: The patient is a 63-year-old white male with a history of urolithiasis. He has recently experienced left flank pain. He was treated for a Pseudomonas UTI earlier this year. His PSA level was elevated at that time, but has since normalized. A KUB x-ray in September 2023 showed a 5 mm right renal calculus and several left renal calculi measuring up to 8 mm in size. He was offered the options of observation, extracorporal shockwave lithotripsy (ESWL), and ureteroscopy with laser lithotripsy. He has elected to undergo the latter and comes for this reason. Operative Findings: 8 to 10 mm left lower pole calyceal calculus, impacted. Description of Procedure: The patient was taken to the operating room and placed in the dorsolithotomy p osition, with legs supported in Neil stirrups. The external genitalia was prepped and draped sterilely. The 30 lens was used to introduce the 21-Thai Euceda cystoscopic sheath through the urethra and into the bladder under direct vision. The prostatic urethra showed evidence of an obstructing median lobe in addition to lateral lobe enlargement. The bladder was examined in its entirety. Both ureteral orifices were normal anatomic location and configuration, and clear urine effluxed from both. No tumors or foreign bodies were seen. A 0.038 inch Glidewire was passed through the cystoscope. The right ureteral orifice was cannulated, and the Glidewire was advanced up to the renal pelvis. The cystoscope was removed, and an 11/13-Thai ureteral access catheter was passed over the wire, up to the proximal ureter. The Euceda MobileIron flexible ureteroscope was then passed through the ureteral access catheter sheath and advanced under direct vision up to the right renal pelvis. Each calyx was examined. The only calculus seen measured 2 to 3 mm in size within a midpole calyx. This calculus was adherent to the mucosa. The 272 micron Holmium laser probe was passed through the ureteroscope, and lithotripsy was performed. The calculus fragmented readily and from the mucosa. The ureteroscope was then withdrawn. Pullout ureteroscopy showed no evidence of ureteral trauma. The cystoscope was replaced into the bladder. The 0.038 inch Glidewire was passed through the cystoscope. The left ureteral orifice was cannulated, and the Glidewire was advanced up to the renal pelvis. The cystoscope was removed, and an 11/13-Thai ureteral access catheter was passed over the wire, up to the proximal ureter. The [place] flexible ureteroscope was then passed through the ureteral access catheter sheath and advanced under direct vision up to the left renal pelvis. Each calyx was examined. No calculi were seen within the upper pole and midpole calyces. A calculus was identified within a lower pole calyx, but it was very difficult to access given angulation issues. With much difficulty, it was possible to get the ureteroscope in place and perform laser lithotripsy. It was determined that there were calculi within 2 lower pole calyces. After dusting the smaller calculus, the larger calculus was identified but was branched and stuck within the calyx. The calculi were not dense and fragmented readily. Ultimately, the larger calculus was diminished in size as a result of the dusting of the calculus, and it was then possible to grasp the calculus using a 0 tip 1.9 Thai nitinol basket and relocated within the renal pelvis, where lithotripsy was completed. 2 of the larger fragments were removed using the stone basket. Each of these measured 2 to 3 mm in size and were sent for chemical analysis. The remaining fragments were less than 1 mm in size and could not be seen on fluoroscopy. There was a persistent calcification over the upper to mid pole of the left kidney, and great attention was paid to the calyces in this region, but a calculus could not be identified. The ureteroscope was slowly withdrawn. There was no evidence of ureteral trauma. The Glidewire was passed through the ureteral access catheter sheath, which was removed. The Glidewire was then backloaded into the cystoscope, which was passed into the bladder. A 28 cm, 4.8 Thai double-J ureteral stent was placed over the wire. Proper stent positioning was verified fluoroscopically and endoscopically. A stent was then placed in an identical manner on the right side. It should be noted that there was some oozing from the prostate. However, no bleeders were identified which warranted electrocautery. The bladder was emptied and the cystoscope removed. The patient tolerated the procedure well and was taken to the recovery room in stable condition. [facility] [place] Report: Procedure Acuity: Elective Stone Size and Location: 8 to 10 mm, left lower pole Ureteral Dilation: No Ureteral Access Sheath Used: Yes Stone Sent for Analysis: Yes All Stones/Fragments Were Removed with a Basket: Yes Complications: No Preoperative Antibiotics Given: Yes Stent Placed: Yes If Stent Placed, Was String Left Attached: Yes If Stent Placed, When is it to be Removed: 1 week Discharge Medications: Toradol, tamsulosin
[2024-03-30 11:15] VITALS: BP 147/90; PULSE 78
== END 2024-03-30 11:31 | disposition home or self-care (01) ==
LOC: OR 05:51
PROVIDERS: ATTEND Urology
DX: N20.0 Calculus of kidney (principal); N40.0 Benign prostatic hyperplasia without lower urinary tract symptoms; E07.9 Disorder of thyroid, unspecified; Z79.899 Other long term (current) drug therapy; Z79.890 Hormone replacement therapy; Z98.890 Other specified postprocedural states
CPT/HCPCS: 82365; 74018; 52356; C2625; C1769; C1758; J2250; J0330; J1100 ×2; J2710; J0690; J2405; J2003; J3010; J1885; J2704; J2371; J1596

== ENCOUNTER 2024-04-10 23:54 | Inpatient (IN) | payer BC ==
--- NOTE | 2024-04-11 01:07 | ED ---
General Adult HPI - General Chief complaint: Fever Stated complaint: Fever, dizziness, post op pain Time Seen by Provider: 04/11/24 00:21 Source: patient, RN notes reviewed Mode of arrival: wheelchair Limitations: no limitations - History of Present Illness Initial comments: 63-year-old male presents to the emergency department for evaluation of fever. Patient reports that he underwent a urological procedure recently. He states that he was having difficulty with urination and bowel movements following the procedure but this has seemed to improve. He notes that he is feeling better today but then noticed that he started experiencing chills. His took his temperature and states that it was 102 degrees. Patient admits to left-sided abdominal pain. Denies nausea, vomiting. - Related Data Home Medications Medication Instructions Recorded Confirmed Testosterone [Androgel 1%] 2 packet TOPICAL DAILY 02/09/22 04/11/24 Acetaminophen Tab [Tylenol] 500 mg PO Q6H PRN 04/11/24 04/11/24 Alfuzosin HCl [Alfuzosin HCl ER] 10 mg PO HS 04/11/24 04/11/24 Levothyroxine Sodium [Synthroid] 100 mcg PO DAILY 04/11/24 04/11/24 Previous Rx's Medication Instructions Recorded Acetaminophen Tab [Tylenol] 650 mg PO Q6HR PRN tab 04/14/24 Amoxic-Pot Clav 875-125Mg 1 tab PO Q12HR #28 tab 04/14/24 [Augmentin 875-125] Docusate [Colace] 100 mg PO BID #10 cap 04/14/24 Allergies Allergy/AdvReac Type Severity Reaction Status Date / Time No Known Allergies Allergy Verified 04/11/24 09:45 Review of Systems ROS Statement: Those systems with pertinent positive or pertinent negative responses have been documented in the HPI. ROS Other: All systems not noted in ROS Statement are negative. Past Medical History Past Medical History: Thyroid Disorder Additional Past Medical History / Comment(s): Renal calculi. Ventral hernia currrently. History of Any Multi-Drug Resistant Organisms: None Reported Past Surgical History: Back Surgery Additional Past Surgical History / Comment(s): Lumbar surgery, left percutaneous nephrolithotomy Past Anesthesia/Blood Transfusion Reactions: Motion Sickness Past Psychological History: No Psychological Hx Reported Smoking Status: Never smoker Past Alcohol Use History: None Reported Past Drug Use History: None Reported - Past Family History Father Family Medical History: Cancer, CVA/TIA Additional Family Medical History / Comment(s): Melanoma skin cancer General Exam Limitations: no limitations General appearance: alert, in no apparent distress Head exam: Present: atraumatic, normocephalic, normal inspection Eye exam: Present: normal appearance, PERRL, EOMI. Absent: scleral icterus, conjunctival injection, periorbital swelling ENT exam: Present: normal exam, mucous membranes moist Respiratory exam: Present: normal lung sounds bilaterally. Absent: respiratory distress, wheezes, rales, rhonchi, stridor Cardiovascular Exam: Present: tachycardia GI/Abdominal exam: Present: distended (Suprapubic distention), hypoactive bowel sounds. Absent: tenderness, guarding, rebound, rigid Neurological exam: Present: alert, oriented X3 Psychiatric exam: Present: normal affect, normal mood Skin exam: Present: warm, dry, intact, normal color. Absent: rash Course Vital Signs 04/10/24 04/11/24 04/11/24 23:56 02:00 03:00 Temperature 100.3 F H 101.8 F H Pulse Rate 113 H 107 H Respiratory 20 18 Rate Blood Pressure 114/79 110/72 O2 Sat by Pulse 96 94 L Oximetry 04/11/24 04/11/24 04/11/24 04:00 06:00 08:00 Temperature 98.7 F Pulse Rate 104 H 93 Respiratory 18 18 Rate Blood Pressure 95/61 90/79 O2 Sat by Pulse 94 L 95 Oximetry 04/11/24 04/11/24 04/11/24 09:49 11:03 12:00 Temperature 98.5 F 97.9 F Pulse Rate 85 86 79 Respiratory 19 19 18 Rate Blood Pressure 118/74 116/67 125/74 O2 Sat by Pulse 97 97 96 Oximetry 04/11/24 04/11/24 04/11/24 14:07 17:26 22:02 Temperature 97.6 F 98.3 F Pulse Rate 75 65 Respiratory 15 17 18 Rate Blood Pressure 119/75 O2 Sat by Pulse 97 97 Oximetry Medical Decision Making - Medical Decision Making Was pt. sent in by a medical professional or institution (, PA, RECEIVABLES SPECIALIST, urgent care, hospital, or fci...) When possible be specific @ -No Did you speak to anyone other than the patient for history (EMS, parent, family, police, friend...)? What history was obtained from this source @ -No Did you review nursing and triage notes (agree or disagree)? Why? @ -I reviewed and agree with nursing and triage notes Were old charts reviewed (outside hosp., previous admission, EMS record, old EKG, old radiological studies, urgent care reports/EKG's, fci records)? Report findings @ -No old charts were reviewed Differential Diagnosis (chest pain, altered mental status, abdominal pain women, abdominal pain men, vaginal bleeding, weakness, fever, dyspnea, syncope, headache, dizziness, GI bleed, back pain, seizure, CVA, palpatations, mental health, musculoskeletal)? @ -Differential Fever: Pneumonia, viral URI, endocarditis, myocarditis, pericarditis, otitis, sinusitis, peritonsillar Abscess, retropharyngeal Abscess, epiglottitis, peritonitis, appendicitis, Irma cystitis, diverticulitis, hepatitis, colitis, UTI, PID, TOA, pyelonephritis, prostatitis, epididymitis, meningitis, encephalitis, pulmonary embolism, CVA, thyroid storm, pancreatitis, adrenal crisis, cavernous sinus thrombosis, this is not meant to be an all-inclusive list. Differential Abdominal Pain Men: Appendicitis, cholecystitis, diverticulosis, ischemic bowel, pancreatitis, hepatitis, UTI, gastroenteritis, AAA, incarcerated hernia, bowel obstruction, constipation, inflammatory bowel, hepatitis, peptic ulcer disease, splenic infarction, perforated viscus, testicular torsion, this is not meant to be an all-inclusive list EKG interpreted by me (3pts min.). @ -none X-rays interpreted by me (1pt min.). @ -None done CT interpreted by me (1pt min.). @ -CT abdomen pelvis shows a distended bladder, moderate bilateral hydronephrosis and hydroureter, prostatomegaly, some stranding surrounding the urinary bladder U/S interpreted by me (1pt. min.). @ -None done What testing was considered but not performed or refused? (CT, X-rays, U/S, labs )? Why? @ -None What meds were considered but not given or refused? Why? @ -None Did you discuss the management of the patient with other professionals (professionals i.e. , PA, RECEIVABLES SPECIALIST, lab, RT, psych nurse, social media developer, rock contractor, teacher, associate loan officer, lining caser)? Give summary @ -Management was discussed with Dr. Topete and EM by my attending, Dr. Campos Was smoking cessation discussed for >3mins.? @ -No Was critical care preformed (if so, how long)? @ -No Were there social determinants of health that impacted care today? How? (Homelessness, low income, unemployed, alcoholism, drug addiction, transportation, low edu. Level, literacy, decrease access to med. care, usp, rehab)? @ -No Was there de-escalation of care discussed even if they declined (Discuss DNR or withdrawal of care, Hospice)? DNR status @ -No What co-morbidities impacted this encounter? (DM, HTN, Smoking, COPD, CAD, Cancer, CVA, ARF, Chemo, Hep., AIDS, mental health diagnosis, sleep apnea, morbid obesity)? @ -None Was patient admitted / discharged? Hospital course, mention meds given and route, prescriptions, significant lab abnormalities, going to OR and other pertinent info. @ -Admitted. Patient presented to the emergency department for evaluation of fever. On initial presentation, patient is febrile, tachycardic. A CT scan was ordered prior to resulting of laboratory studies and the patient was taken for CT as he does not have comorbidities for renal disease. CMP resulted following CT and the patient had elevated creatinine at 3.64. CBC significant for leukocytosis of 21. Patient provided IV hydration with 2 L of normal saline, patient started on maintenance fluids following this. Patient was started on cefepime for potential source of UTI. The CT was reviewed and the patient has significantly distended bladder, bladder decompression performed with a [place] catheter. Repeat BMP performed at 4 AM revealing improvement in creatinine at 2.67 the patient will be admitted to the hospital. Management was discussed with urology and hospitalist by my attending, Dr. Campos who I discussed the case with Undiagnosed new problem with uncertain prognosis? @ -No Drug Therapy requiring intensive monitoring for toxicity (Heparin, Nitro, Insulin, Cardizem)? @ -No Were any procedures done? @ -No Diagnosis/symptom? @ -Sepsis, UTI, BRITTANEY Acute, or Chronic, or Acute on Chronic? @ -Acute Uncomplicated (without systemic symptoms) or Complicated (systemic symptoms)? @ -Complicated Side effects of treatment? @ -No Exacerbation, Progression, or Severe Exacerbation? @ -No Poses a threat to life or bodily function? How? (Chest pain, [place], [place], pneumonia, PE, COPD, DKA, ARF, appy, cholecystitis, CVA, Diverticulitis, Homicidal, Suicidal, threat to staff... and all critical care pts) @ -yes - Lab Data Result diagrams: 04/14/24 05:13 04/14/24 05:13 Lab Results 04/11/24 04/11/24 04/11/24 Range/Units 00:54 00:54 01:00 WBC 21.5 H (3.8-10.6) k/uL RBC 4.39 (4.30-5.90) m/uL Hgb 12.9 L (13.0-17.5) gm/dL Hct 37.7 L (39.0-53.0) % MCV 85.8 (80.0-100.0) fL MCH 29.3 (25.0-35.0) pg MCHC 34.2 (31.0-37.0) g/dL RDW 12.7 (11.5-15.5) % Plt Count 203 (150-450) k/uL MPV 7.4 Neutrophils % 93 % Lymphocytes % 3 % Monocytes % 2 % Eosinophils % 1 % Basophils % 0 % Neutrophils # 20.1 H (1.3-7.7) k/uL Lymphocytes # 0.7 L (1.0-4.8) k/uL Monocytes # 0.5 (0-1.0) k/uL Eosinophils # 0.1 (0-0.7) k/uL Basophils # 0.0 (0-0.2) k/uL Sodium (137-145) mmol/L Potassium (3.5-5.1) mmol/L Chloride (98-107) mmol/L Carbon Dioxide (22-30) mmol/L Anion Gap mmol/L BUN (9-20) mg/dL Creatinine (0.66-1.25) mg/dL Est GFR (CKD-EPI)AfAm (>60 ml/min/1.73 sqM) Est GFR (CKD-EPI)NonAf (>60 ml/min/1.73 sqM) Glucose (74-99) mg/dL Plasma Lactic Acid [place] (0.7-2.0) mmol/L Calcium (8.4-10.2) mg/dL Total Bilirubin (0.2-1.3) mg/dL AST (17-59) U/L ALT (4-49) U/L Alkaline Phosphatase (38-126) U/L Total Protein (6.3-8.2) g/dL Albumin (3.5-5.0) g/dL Urine Color Colorless Urine Appearance Clear (Clear) Urine pH 6.5 (5.0-8.0) Ur Specific [place] 1.008 (1.001-1.035) Urine Protein Negative (Negative) Urine Glucose (UA) Negative (Negative) Urine Ketones Negative (Negative) Urine Blood Negative (Negative) Urine Nitrite Negative (Negative) Urine Bilirubin Negative (Negative) Urine Urobilinogen <2.0 (<2.0) mg/dL Ur Leukocyte Esterase Small H (Negative) Urine RBC <1 (0-5) /hpf Urine WBC 26 H (0-5) /hpf Ur Squamous Epith Cells <1 (0-4) /hpf Urine Bacteria Few H (None) /hpf Influenza Type A (PCR) Not Detected (Not Detectd) Influenza Type B (PCR) Not Detected (Not Detectd) RSV (PCR) Not Detected (Not Detectd) SARS-CoV-2 (PCR) Not Detected (Not Detectd) 04/11/24 04/11/24 Range/Units 01:00 01:00 WBC (3.8-10.6) k/uL RBC (4.30-5.90) m/uL Hgb (13.0-17.5) gm/dL Hct (39.0-53.0) % MCV (80.0-100.0) fL MCH (25.0-35.0) pg MCHC (31.0-37.0) g/dL RDW (11.5-15.5) % Plt Count (150-450) k/uL MPV Neutrophils % % Lymphocytes % % Monocytes % % Eosinophils % % Basophils % % Neutrophils # (1.3-7.7) k/uL Lymphocytes # (1.0-4.8) k/uL Monocytes # (0-1.0) k/uL Eosinophils # (0-0.7) k/uL Basophils # (0-0.2) k/uL Sodium 135 L (137-145) mmol/L Potassium 5.9 H (3.5-5.1) mmol/L Chloride 101 (98-107) mmol/L Carbon Dioxide 25 (22-30) mmol/L Anion Gap 9 mmol/L BUN 31 H (9-20) mg/dL Creatinine 3.64 H (0.66-1.25) mg/dL Est GFR (CKD-EPI)AfAm 20 (>60 ml/min/1.73 sqM) Est GFR (CKD-EPI)NonAf 17 (>60 ml/min/1.73 sqM) Glucose 126 H (74-99) mg/dL Plasma Lactic Acid [place] 0.9 (0.7-2.0) mmol/L Calcium 8.5 (8.4-10.2) mg/dL Total Bilirubin 0.6 (0.2-1.3) mg/dL AST 16 L (17-59) U/L ALT 19 (4-49) U/L Alkaline Phosphatase 78 (38-126) U/L Total Protein 6.6 (6.3-8.2) g/dL Albumin 4.0 (3.5-5.0) g/dL Urine Color Urine Appearance (Clear) Urine pH (5.0-8.0) Ur Specific [place] (1.001-1.035) Urine Protein (Negative) Urine Glucose (UA) (Negative) Urine Ketones (Negative) Urine Blood (Negative) Urine Nitrite (Negative) Urine Bilirubin (Negative) Urine Urobilinogen (<2.0) mg/dL Ur Leukocyte Esterase (Negative) Urine RBC (0-5) /hpf Urine WBC (0-5) /hpf Ur Squamous Epith Cells (0-4) /hpf Urine Bacteria (None) /hpf Influenza Type A (PCR) (Not Detectd) Influenza Type B (PCR) (Not Detectd) RSV (PCR) (Not Detectd) SARS-CoV-2 (PCR) (Not Detectd) Disposition Clinical Impression: UTI (urinary tract infection), Sepsis Disposition: ADMITTED IP TO THIS HOSP Condition: Fair
[2024-04-11 01:15] LABS: Appearance,Urine Clear (Clear); Bacteria,Urine Few /hpf; Bilirubin,Urine Negative (Negative); Blood,Urine Negative (Negative); Color,Urine Colorless; Glucose,Urine (UA) Negative (Negative); Ketones,Urine Negative (Negative); Leukocyte Esterase,Urine Small (Negative); Nitrite,Urine Negative (Negative); PH, Urine 6.5 (5.0-8.0); Protein,Urine Negative (Negative); RBC,Urine <1 /hpf (0-5); Specific Gravity,Urine 1.008 (1.001-1.035); Squamous Epithelial Cell,Urine <1 /hpf (0-4); Urobilinogen,Urine <2.0 mg/dL (<2.0); WBC,Urine 26 /hpf (0-5)
[2024-04-11 01:30] LABS: Basophils % (A) 0 %; Eosinophils # (A) 0.1 k/uL (0-0.7); Eosinophils % (A) 1 %; HCT 37.7 % (39.0-53.0); HGB 12.9 gm/dL (13.0-17.5); Lymphocytes # (A) 0.7 k/uL (1.0-4.8); Lymphocytes % (A) 3 %; MCH 29.3 pg (25.0-35.0); MCHC 34.2 g/dL (31.0-37.0); MCV 85.8 fL (80.0-100.0); Mean Platelet Volume 7.4; Monocytes # (A) 0.5 k/uL (0-1.0); Monocytes % (A) 2 %; Neutrophils # (A) 20.1 k/uL (1.3-7.7); Neutrophils % (A) 93 %; Platelet Count 203 k/uL (150-450); RBC 4.39 m/uL (4.30-5.90); RDW 12.7 % (11.5-15.5); WBC 21.5 k/uL (3.8-10.6)
[2024-04-11 01:36] LABS: ALT 19 U/L (4-49); AST 16 U/L (17-59); African American GFR (CKD) 20 (>60 ml/min/1.73 sqM); Alkaline Phosphatase 78 U/L (38-126); Anion Gap 9 mmol/L; Blood Urea Nitrogen 31 mg/dL (9-20); Calcium 8.5 mg/dL (8.4-10.2); Carbon Dioxide 25 mmol/L (22-30); Chloride 101 mmol/L (98-107); Glucose 126 mg/dL (74-99); Non-African American GFR(CKD) 17 (>60 ml/min/1.73 sqM); Potassium 5.9 mmol/L (3.5-5.1); Sodium 135 mmol/L (137-145); Total Bilirubin 0.6 mg/dL (0.2-1.3); Total Protein 6.6 g/dL (6.3-8.2)
[2024-04-11] MEDS: SODIUM CHLORIDE 0.9% 2,000 ML IV ONE (01:50)
[2024-04-11] MEDS: CEFEPIME 2 GM in SODIUM CHLORIDE 0.9% 100 ML IVPB STA (02:33)
--- NOTE | 2024-04-11 03:08 | CT ---
EXAM: CT Abdomen and Pelvis With Intravenous Contrast CLINICAL HISTORY: pain, fever, recent uro procedure TECHNIQUE: Axial computed tomography images of the abdomen and pelvis with intravenous contrast. CTDI greater is 24.9 mGy and DLP is 1384.1 mGy-cm. This CT exam was performed using one or more of the following dose reduction techniques: automated exposure control, adjustment of the mA and/or kV according to patient size, and/or use of iterative reconstruction technique. COMPARISON: 02/09/22 FINDINGS: Lung bases: Unremarkable. No mass. No consolidation. ABDOMEN: Liver: Unremarkable. No mass. Gallbladder and bile ducts: Unremarkable. No calcified stones. No ductal dilation. Pancreas: Unremarkable. No mass. No ductal dilation. Spleen: Subcentimeter splenic granulomatous calcifications. Adrenals: Unremarkable. No mass. Kidneys and ureters: Urine bladder is overdistended. Bilateral moderate hydroureter and hydronephrosis. Nonobstructing left renal stones. Largest is in left kidney measuring about 9 mm. Stomach and bowel: Unremarkable. No obstruction. No mucosal thickening. PELVIS: Appendix: Normal appendix. Bladder: Unremarkable. No mass. Reproductive: Prostate gland measures about 5.4 cm AP, 6.3 cm transverse and 8 centimeters craniocaudal. ABDOMEN and PELVIS: Intraperitoneal space: Trace of stranding surrounding urinary bladder is nonspecific, may suggest the cystitis. No free air. No significant fluid collection. Bones/joints: Osteopenia. Moderate degenerative changes. Soft tissues: Mild anasarca. Vasculature: Unremarkable. No abdominal aortic aneurysm. Lymph nodes: Unremarkable. No enlarged lymph nodes. IMPRESSION: 1. Urine bladder is overdistended. Bilateral moderate hydroureter and hydronephrosis. These findings suggest bladder outlet stenosis 2. Prostatomegaly. 3. Questionable cystitis. Please correlate with clinical and laboratory findings.
[2024-04-11] MEDS ORDERED: HYDROmorphone 0.5 MG/0.5 ML SYRINGE IVP PRN (03:13)
[2024-04-11] MEDS ORDERED: NALOXONE 0.4 MG/ML 1 ML VIAL IV PRN (03:13)
[2024-04-11] MEDS: SODIUM CHLORIDE 0.9% 1,000 ML IV SCH (03:35)
[2024-04-11] MEDS: HYDROmorphone 0.5 MG/0.5 ML SYRINGE IVP STA (03:36)
[2024-04-11] MEDS: ACETAMINOPHEN TAB 500 MG TAB PO STA (03:37)
[2024-04-11 05:58] LABS: African American GFR (CKD) 29 (>60 ml/min/1.73 sqM); Anion Gap 8 mmol/L; Blood Urea Nitrogen 27 mg/dL (9-20); Calcium 7.8 mg/dL (8.4-10.2); Carbon Dioxide 22 mmol/L (22-30); Chloride 108 mmol/L (98-107); Glucose 134 mg/dL (74-99); Non-African American GFR(CKD) 25 (>60 ml/min/1.73 sqM); Potassium 5.3 mmol/L (3.5-5.1); Sodium 138 mmol/L (137-145)
[2024-04-11] MEDS ORDERED: bisacodyL 10 MG SUPP RECTAL PRN (09:32)
[2024-04-11] MEDS: DOCUSATE 100 MG CAP PO SCH (09:47)
[2024-04-11] MEDS: SODIUM ZIRCONIUM CYCLOSILICATE 10 GM PACKET PO SCH (11:01)
[2024-04-11] MEDS: LEVOTHYROXINE 100 MCG TAB PO SCH (11:01)
--- NOTE | 2024-04-11 13:31 | P.GSCN ---
History of Present Illness Consult date: 04/11/24 Reason for Consult: Urinary retention, bilateral hydronephrosis Requesting physician: Marco E Sheet History of present illness: The patient is a 63-year-old white male who underwent left ureteroscopy with laser lithotripsy to remove a left lower pole renal calculus on March 30, 2024. The procedure was uncomplicated, but postoperatively he experienced abdominal pain, difficulty voiding, and constipation. Much of this was attributed to the left ureteral stent, which was removed on April 07. However, he now presents to the ER with fever, chills, difficulty voiding, and left-sided abdominal pain. ER evaluation has shown evidence of leukocytosis and renal failure. CT scan showed bilateral hydronephrosis secondary to urinary retention. A Longoria catheter was placed, with return of 1500 cc of urine. He f elt significantly better after Longoria catheter placement. Review of Systems - Constitutional Reports chills, Reports fever - Gastrointestinal Reports abdominal pain, Reports constipation, Reports nausea, Reports vomiting - Genitourinary Reports kidney stones, Reports urinary frequency Past Medical History Past Medical History: Thyroid Disorder Additional Past Medical History / Comment(s): Renal calculi. Ventral hernia currrently. History of Any Multi-Drug Resistant Organisms: None Reported Past Surgical History: Back Surgery Additional Past Surgical History / Comment(s): Lumbar surgery, left percutaneous nephrolithotomy Past Anesthesia/Blood Transfusion Reactions: Motion Sickness Past Psychological History: No Psychological Hx Reported Smoking Status: Never smoker Past Alcohol Use History: None Reported Past Drug Use History: None Reported - Past Family History Father Family Medical History: Cancer, CVA/TIA Additional Family Medical History / Comment(s): Melanoma skin cancer Medications and Allergies Home Medications Medication Instructions Recorded Confirmed Type Testosterone [Androgel 1%] 2 packet TOPICAL DAILY 02/09/22 04/11/24 History Acetaminophen Tab [Tylenol Tab] 500 mg PO Q6H PRN 04/11/24 04/11/24 History Alfuzosin HCl [Alfuzosin HCl ER] 10 mg PO HS 04/11/24 04/11/24 History Levothyroxine Sodium [Synthroid] 100 mcg PO DAILY 04/11/24 04/11/24 History Allergies Allergy/AdvReac Type Severity Reaction Status Date / Time No Known Allergies Allergy Verified 04/11/24 09:45 Surgical - Exam Vital Signs Temp Pulse Resp BP Pulse Ox 100.3 F H 113 H 20 114/79 96 04/10/24 23:56 04/10/24 23:56 04/10/24 23:56 04/10/24 23:56 04/10/24 23:56 - General well developed, well nourished, no distress - Respiratory normal respiratory effort - Abdomen Soft but mildly distended, non-tender, no mass. - Psychiatric oriented to time, oriented to person, oriented to place, speech is normal, memory intact Results - Labs 04/11/24 01:00 04/11/24 05:38 Abnormal Lab Results - Last 24 Hours (Table) 04/11/24 04/11/24 04/11/24 Range/Units 00:54 01:00 01:00 WBC 21.5 H (3.8-10.6) k/uL Hgb 12.9 L (13.0-17.5) gm/dL Hct 37.7 L (39.0-53.0) % Neutrophils # 20.1 H (1.3-7.7) k/uL Lymphocytes # 0.7 L (1.0-4.8) k/uL Sodium 135 L (137-145) mmol/L Potassium 5.9 H (3.5-5.1) mmol/L Chloride (98-107) mmol/L BUN 31 H (9-20) mg/dL Creatinine 3.64 H (0.66-1.25) mg/dL Glucose 126 H (74-99) mg/dL Calcium (8.4-10.2) mg/dL AST 16 L (17-59) U/L Ur Leukocyte Esterase Small H (Negative) Urine WBC 26 H (0-5) /hpf Urine Bacteria Few H (None) /hpf 04/11/24 Range/Units 05:38 WBC (3.8-10.6) k/uL Hgb (13.0-17.5) gm/dL Hct (39.0-53.0) % Neutrophils # (1.3-7.7) k/uL Lymphocytes # (1.0-4.8) k/uL Sodium (137-145) mmol/L Potassium 5.3 H (3.5-5.1) mmol/L Chloride 108 H (98-107) mmol/L BUN 27 H (9-20) mg/dL Creatinine 2.67 H (0.66-1.25) mg/dL Glucose 134 H (74-99) mg/dL Calcium 7.8 L (8.4-10.2) mg/dL AST (17-59) U/L Ur Leukocyte Esterase (Negative) Urine WBC (0-5) /hpf Urine Bacteria (None) /hpf Diabetes panel 04/11/24 04/11/24 Range/Units 01:00 05:38 Sodium 135 L 138 (137-145) mmol/L Potassium 5.9 H 5.3 H (3.5-5.1) mmol/L Chloride 101 108 H (98-107) mmol/L Carbon Dioxide 25 22 (22-30) mmol/L BUN 31 H 27 H (9-20) mg/dL Creatinine 3.64 H 2.67 H (0.66-1.25) mg/dL Glucose 126 H 134 H (74-99) mg/dL Calcium 8.5 7.8 L (8.4-10.2) mg/dL AST 16 L (17-59) U/L ALT 19 (4-49) U/L Alkaline Phosphatase 78 (38-126) U/L Total Protein 6.6 (6.3-8.2) g/dL Albumin 4.0 (3.5-5.0) g/dL Calcium panel 04/11/24 04/11/24 Range/Units 01:00 05:38 Calcium 8.5 7.8 L (8.4-10.2) mg/dL Albumin 4.0 (3.5-5.0) g/dL Pituitary panel 04/11/24 04/11/24 Range/Units 01:00 05:38 Sodium 135 L 138 (137-145) mmol/L Potassium 5.9 H 5.3 H (3.5-5.1) mmol/L Chloride 101 108 H (98-107) mmol/L Carbon Dioxide 25 22 (22-30) mmol/L BUN 31 H 27 H (9-20) mg/dL Creatinine 3.64 H 2.67 H (0.66-1.25) mg/dL Glucose 126 H 134 H (74-99) mg/dL Calcium 8.5 7.8 L (8.4-10.2) mg/dL Adrenal panel 04/11/24 04/11/24 Range/Units 01:00 05:38 Sodium 135 L 138 (137-145) mmol/L Potassium 5.9 H 5.3 H (3.5-5.1) mmol/L Chloride 101 108 H (98-107) mmol/L Carbon Dioxide 25 22 (22-30) mmol/L BUN 31 H 27 H (9-20) mg/dL Creatinine 3.64 H 2.67 H (0.66-1.25) mg/dL Glucose 126 H 134 H (74-99) mg/dL Calcium 8.5 7.8 L (8.4-10.2) mg/dL Total Bilirubin 0.6 (0.2-1.3) mg/dL AST 16 L (17-59) U/L ALT 19 (4-49) U/L Alkaline Phosphatase 78 (38-126) U/L Total Protein 6.6 (6.3-8.2) g/dL Albumin 4.0 (3.5-5.0) g/dL - Imaging CT scan - abdomen: report reviewed, image reviewed Assessment and Plan (1) Retention of urine, unspecified Current Visit: Yes Status: Acute Code(s): R33.9 - RETENTION OF URINE, UNSPECIFIED SNOMED Code(s): 206432405 (2) Unspecified hydronephrosis Current Visit: Yes Status: Acute Code(s): N13.30 - UNSPECIFIED HYDRONEPHROSIS SNOMED Code(s): 67389066 Plan: The cause of the patient's illness is unclear. Urinalysis is suggestive of a possible UTI. Urine and blood cultures were sent, and he is receiving cefepime. His hydronephrosis and renal failure appear to be due to urinary retention, and he feels much better following Longoria catheter placement. I have ordered Colace and Dulcolax suppositories for his constipation. CT scan shows several residual left renal calculi, all nonobstructing, and placement of a ureteral stent is not felt to be warranted at this time. Time with Patient: Greater than 30
[2024-04-11] MEDS: CEFEPIME 2 GM in SODIUM CHLORIDE 0.9% 100 ML IVPB SCH ×2 (13:48→23:54)
[2024-04-11 14:34] LABS: Basophils % (A) 0 %; Eosinophils # (A) 0.1 k/uL (0-0.7); Eosinophils % (A) 1 %; HCT 34.9 % (39.0-53.0); HGB 11.5 gm/dL (13.0-17.5); Lymphocytes # (A) 0.9 k/uL (1.0-4.8); Lymphocytes % (A) 6 %; MCH 28.8 pg (25.0-35.0); MCHC 32.8 g/dL (31.0-37.0); MCV 87.6 fL (80.0-100.0); Mean Platelet Volume 7.5; Monocytes # (A) 0.5 k/uL (0-1.0); Monocytes % (A) 3 %; Neutrophils # (A) 13.1 k/uL (1.3-7.7); Neutrophils % (A) 89 %; Platelet Count 192 k/uL (150-450); RBC 3.99 m/uL (4.30-5.90); RDW 12.8 % (11.5-15.5); WBC 14.8 k/uL (3.8-10.6)
[2024-04-11 14:55] LABS: ALT 16 U/L (4-49); AST 15 U/L (17-59); African American GFR (CKD) 42 (>60 ml/min/1.73 sqM); Albumin 3.2 g/dL (3.5-5.0); Alkaline Phosphatase 60 U/L (38-126); Anion Gap 8 mmol/L; Blood Urea Nitrogen 23 mg/dL (9-20); Calcium 8.1 mg/dL (8.4-10.2); Carbon Dioxide 25 mmol/L (22-30); Chloride 107 mmol/L (98-107); Glucose 121 mg/dL (74-99); Non-African American GFR(CKD) 36 (>60 ml/min/1.73 sqM); Potassium 4.8 mmol/L (3.5-5.1); Sodium 140 mmol/L (137-145); Total Bilirubin 0.4 mg/dL (0.2-1.3); Total Protein 5.7 g/dL (6.3-8.2)
--- NOTE | 2024-04-11 16:31 | P.HPIM ---
History of Present Illness H&P Date: 04/11/24 History of present illness: This is a 63-year-old male patient who underwent left ureteroscopy with laser lithotripsy to remove left lower pole renal calculus on March 30, 2024 had subsequently left ureteral stent removed on 04/07 due to abdominal pain difficulty voiding and constipation. Patient now presented to ER with a complaint of fever running up to 102, chills, difficulty voiding and left-sided abdominal pain. Patient denied any headache, vision changes, sore throat, productive cough, chest pain, palpitation, nausea vomiting diarrhea constipation weakness or numbness to extremities In the ED patient had a fever of 101.8, tachycardic, blood pressure and oxygen saturation was stable. On admission WBCs 21.5, hemoglobin 12.9, platelet 203. Initially BMP showed hyperkalemia with potassium 5.9, creatinine 3.64, which has now improved to 1.96, potassium has improved to 4.8. Viral panel was negative. CT abdomen pelvis showed over distended urine bladder, bilateral moderate hydroureter and hydronephrosis, prostatomegaly. Assessment and plan: Sepsis: Fever: BRITTANEY on CKD: Hyperkalemia: Presented with fever, chills, Difficulty voiding, left-sided abdominal pain. Recent cystoscopy with lithotripsy on 03/30 followed by left ureteral stent removal on 04/07 Febrile, tachycardic, significant leukocytosis on presentation CT abdomen pelvis showed over distended urine bladder, bilateral moderate hydroureter and hydronephrosis, prostatomegaly. UA mildly positive Urine culture and blood culture Cefepime IVF, monitor renal function, monitor potassium ID consult Urology consulted Hypothyroidism: Synthroid DVT prophylaxis Subcutaneous heparin Monitor vital signs and labs Labs and medication were reviewed. Continue same treatment. Further recommendations as per clinical course of the patient REVIEW OF SYSTEMS: CONSTITUTIONAL: No fever, no malaise, no fatigue. HEENT: No recent visual problems or hearing problems. Denied any sore throat. CARDIOVASCULAR: No chest pain, orthopnea, PND, no palpitations, no syncope. PULMONARY: No shortness of breath, no cough, no hemoptysis. GASTROINTESTINAL: No diarrhea, no nausea, no vomiting, no abdominal pain. NEUROLOGICAL: No headaches, no weakness, no numbness. HEMATOLOGICAL: Denies any bleeding or petechiae. GENITOURINARY: Denies any burning micturition, frequency, or urgency. MUSCULOSKELETAL/RHEUMATOLOGICAL: Denies any joint pain, swelling, or any muscle pain. ENDOCRINE: Denies any polyuria or polydipsia. The rest of the 14-point review of systems is negative. PHYSICAL EXAMINATION: GENERAL: The patient is A&O x3, NAD HEENT: EOMI, Sclerae anicteric, Moist Mucous membranes Neck: Supple, Non tender, No JVD PULMONARY: Equal breath souds B/L, No wheezing, No crackles. CARDIOVASCULAR: S1, S2 present. No murmurs, rubs, or gallops. ABDOMEN: Soft, nontender, nondistended, normoactive bowel sounds. No guarding or rebound tenderness. MUSCULOSKELETAL: No edema, No cyanosis. No clubbing. Normal ROM. Intact peripheral pulses. NEUROLOGICAL: CN 2-12 grossly intact. No FND Dictation was produced using [employer] dictation software. please excuse any grammatical, word or spelling errors. Past Medical History Past Medical History: Thyroid Disorder Additional Past Medical History / Comment(s): Renal calculi. Ventral hernia currrently. History of Any Multi-Drug Resistant Organisms: None Reported Past Surgical History: Back Surgery Additional Past Surgical History / Comment(s): Lumbar surgery, left percutaneous nephrolithotomy Past Anesthesia/Blood Transfusion Reactions: Motion Sickness Past Psychological History: No Psychological Hx Reported Smoking Status: Never smoker Past Alcohol Use History: None Reported Past Drug Use History: None Reported - Past Family History Father Family Medical History: Cancer, CVA/TIA Additional Family Medical History / Comment(s): Melanoma skin cancer Medications and Allergies Home Medications Medication Instructions Recorded Confirmed Type Testosterone [Androgel 1%] 2 packet TOPICAL DAILY 02/09/22 04/11/24 History Acetaminophen Tab [Tylenol Tab] 500 mg PO Q6H PRN 04/11/24 04/11/24 History Alfuzosin HCl [Alfuzosin HCl ER] 10 mg PO HS 04/11/24 04/11/24 History Levothyroxine Sodium [Synthroid] 100 mcg PO DAILY 04/11/24 04/11/24 History Allergies Allergy/AdvReac Type Severity Reaction Status Date / Time No Known Allergies Allergy Verified 04/11/24 09:45 Physical Exam Vitals: Vital Signs Temp Pulse Resp BP Pulse Ox 04/11/24 14:07 97.6 F 15 12/31/24 12:00 97.9 F 79 18 125/74 96 04/11/24 11:03 86 19 116/67 97 04/11/24 09:49 98.5 F 85 19 118/74 97 04/11/24 08:00 98.7 F 04/11/24 06:00 93 18 90/79 95 04/11/24 04:00 104 H 18 95/61 94 L 04/11/24 03:00 107 H 18 110/72 94 L 04/11/24 02:00 101.8 F H 04/10/24 23:56 100.3 F H 113 H 20 114/79 96 Intake and Output 04/11/24 04/11/24 04/11/24 06:59 14:59 22:59 Output Total 3575 Balance -3575 Output: Urine 3575 Straight 1575 Other: # Bowel Movements 0 Weight 104.326 kg Results CBC & Chem 7: 04/11/24 14:07 04/11/24 14:07 Labs: Abnormal Lab Results - Last 24 Hours (Table) 04/11/24 04/11/24 04/11/24 Range/Units 00:54 01:00 01:00 WBC 21.5 H (3.8-10.6) k/uL RBC (4.30-5.90) m/uL Hgb 12.9 L (13.0-17.5) gm/dL Hct 37.7 L (39.0-53.0) % Neutrophils # 20.1 H (1.3-7.7) k/uL Lymphocytes # 0.7 L (1.0-4.8) k/uL Sodium 135 L (137-145) mmol/L Potassium 5.9 H (3.5-5.1) mmol/L Chloride (98-107) mmol/L BUN 31 H (9-20) mg/dL Creatinine 3.64 H (0.66-1.25) mg/dL Glucose 126 H (74-99) mg/dL Calcium (8.4-10.2) mg/dL AST 16 L (17-59) U/L Total Protein (6.3-8.2) g/dL Albumin (3.5-5.0) g/dL Ur Leukocyte Esterase Small H (Negative) Urine WBC 26 H (0-5) /hpf Urine Bacteria Few H (None) /hpf 04/11/24 04/11/24 04/11/24 Range/Units 05:38 14:07 14:07 WBC 14.8 H (3.8-10.6) k/uL RBC 3.99 L (4.30-5.90) m/uL Hgb 11.5 L (13.0-17.5) gm/dL Hct 34.9 L (39.0-53.0) % Neutrophils # 13.1 H (1.3-7.7) k/uL Lymphocytes # 0.9 L (1.0-4.8) k/uL Sodium (137-145) mmol/L Potassium 5.3 H (3.5-5.1) mmol/L Chloride 108 H (98-107) mmol/L BUN 27 H 23 H (9-20) mg/dL Creatinine 2.67 H 1.96 H (0.66-1.25) mg/dL Glucose 134 H 121 H (74-99) mg/dL Calcium 7.8 L 8.1 L (8.4-10.2) mg/dL AST 15 L (17-59) U/L Total Protein 5.7 L (6.3-8.2) g/dL Albumin 3.2 L (3.5-5.0) g/dL Ur Leukocyte Esterase (Negative) Urine WBC (0-5) /hpf Urine Bacteria (None) /hpf
[2024-04-11] MEDS: ACETAMINOPHEN TAB 325 MG TAB PO PRN (18:26)
[2024-04-11] MEDS: TAMSULOSIN 0.4 MG CAP.ER.24H PO SCH (22:42)
[2024-04-11] MEDS: HEPARIN SODIUM,PORCINE 5,000 UNIT/ML 1 ML VIAL SQ SCH (22:42)
[2024-04-12] MEDS: AMPICILLIN-SULBACTAM 3 GM in SODIUM CHLORIDE 0.9% 100 ML IVPB SCH (06:32)
--- NOTE | 2024-04-12 06:57 | P.CONS ---
History of Present Illness - Reason for Consult Consult date: 04/11/24 Sepsis Requesting physician: Esteban Burk - Chief Complaint Fever and left flank pain x 1 day - History of Present Illness Patient is a 63-year-old male with a past medical history significant for hypothyroidism kidney stone in this patient who recently did have left ureteroscopy with laser lithotripsy on 03/30/2024, subsequently he did have removal of the ureteral stent on April 07, 2024 patient now presenting to the ER complaining of fever chills difficulty urination and left-sided abdominal pain patient symptom has been going on for about 2 to 3 days with initially symptoms started with decreased urine output developing pain to the left flank area more of a dull aching moderate intensity had the start of fever for the patient presented to the hospital on arrival to the ER patient did have a temperature of 101.8 degrees home hide patient was tachycardic but not hypotensive or hypoxic and no need for supplemental oxygen he did have white count 21.5 with a left shift BUN and creatinine has been elevated patient did have abdominal pelvis CT urinary bladder is more distended bilateral moderate hydroureter and hydronephrosis prostatomegaly and questionable cystitis patient was started on cefepime infectious disease was consulted for further management of antibiotic therapy Review of Systems Positive point and negatives has been mentioned in the HPI, complete review of systems was performed and all other systems are negative Past Medical History Past Medical History: Thyroid Disorder Additional Past Medical History / Comment(s): Renal calculi. Ventral hernia currrently. History of Any Multi-Drug Resistant Organisms: None Reported Past Surgical History: Back Surgery Additional Past Surgical History / Comment(s): Lumbar surgery, left percutaneous nephrolithotomy Past Anesthesia/Blood Transfusion Reactions: Motion Sickness Past Psychological History: No Psychological Hx Reported Smoking Status: Never smoker Past Alcohol Use History: None Reported Past Drug Use History: None Reported - Past Family History Father Family Medical History: Cancer, CVA/TIA Additional Family Medical History / Comment(s): Melanoma skin cancer Medications and Allergies Home Medications Medication Instructions Recorded Confirmed Type Testosterone [Androgel 1%] 2 packet TOPICAL DAILY 02/09/22 04/11/24 History Acetaminophen Tab [Tylenol Tab] 500 mg PO Q6H PRN 04/11/24 04/11/24 History Alfuzosin HCl [Alfuzosin HCl ER] 10 mg PO HS 04/11/24 04/11/24 History Levothyroxine Sodium [Synthroid] 100 mcg PO DAILY 04/11/24 04/11/24 History Allergies Allergy/AdvReac Type Severity Reaction Status Date / Time No Known Allergies Allergy Verified 04/11/24 09:45 Physical Exam Vitals: Vital Signs Temp Pulse Resp BP Pulse Ox 04/11/24 11:03 86 19 116/67 97 04/11/24 09:49 98.5 F 85 19 118/74 97 04/11/24 08:00 98.7 F 04/11/24 06:00 93 18 90/79 95 04/11/24 04:00 104 H 18 95/61 94 L 04/11/24 03:00 107 H 18 110/72 94 L 04/11/24 02:00 101.8 F H 04/10/24 23:56 100.3 F H 113 H 20 114/79 96 Intake and Output 04/10/24 04/11/24 04/11/24 22:59 06:59 14:59 Output Total 3575 Balance -3575 Output: Urine 3575 Straight 1575 Other: # Bowel Movements 0 Weight 104.326 kg GENERAL DESCRIPTION: Middle-aged male lying in bed, no distress. No tachypnea or accessory muscle of respiration use. HEENT: Shows Pallor , no scleral icterus. Oral mucous membrane is dry. No pharyngeal erythema or thrush NECK: Trachea central, no thyromegaly. LUNGS: Unlabored breathing. Clear to auscultation anteriorly. 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 HEART: S1, S2, regular rate and rhythm. No loud murmur ABDOMEN: Soft, no tenderness , guarding or rigidity, no organomegaly EXTREMITIES: No edema of feet. SKIN: No rash, no masses palpable. NEUROLOGICAL: The patient is awake, alert, oriented x3, mood and affect normal. Results CBC & Chem 7: 04/11/24 14:07 04/11/24 14:07 Labs: Abnormal Lab Results - Last 24 Hours (Table) 04/11/24 04/11/24 04/11/24 Range/Units 00:54 01:00 01:00 WBC 21.5 H (3.8-10.6) k/uL Hgb 12.9 L (13.0-17.5) gm/dL Hct 37.7 L (39.0-53.0) % Neutrophils # 20.1 H (1.3-7.7) k/uL Lymphocytes # 0.7 L (1.0-4.8) k/uL Sodium 135 L (137-145) mmol/L Potassium 5.9 H (3.5-5.1) mmol/L Chloride (98-107) mmol/L BUN 31 H (9-20) mg/dL Creatinine 3.64 H (0.66-1.25) mg/dL Glucose 126 H (74-99) mg/dL Calcium (8.4-10.2) mg/dL AST 16 L (17-59) U/L Ur Leukocyte Esterase Small H (Negative) Urine WBC 26 H (0-5) /hpf Urine Bacteria Few H (None) /hpf 04/11/24 Range/Units 05:38 WBC (3.8-10.6) k/uL Hgb (13.0-17.5) gm/dL Hct (39.0-53.0) % Neutrophils # (1.3-7.7) k/uL Lymphocytes # (1.0-4.8) k/uL Sodium (137-145) mmol/L Potassium 5.3 H (3.5-5.1) mmol/L Chloride 108 H (98-107) mmol/L BUN 27 H (9-20) mg/dL Creatinine 2.67 H (0.66-1.25) mg/dL Glucose 134 H (74-99) mg/dL Calcium 7.8 L (8.4-10.2) mg/dL AST (17-59) U/L Ur Leukocyte Esterase (Negative) Urine WBC (0-5) /hpf Urine Bacteria (None) /hpf Assessment and Plan (1) Sepsis Current Visit: No Status: Acute Code(s): A41.9 - SEPSIS, UNSPECIFIED ORGANISM SNOMED Code(s): 71696795 (2) UTI (urinary tract infection) Current Visit: No Status: Acute Code(s): N39.0 - URINARY TRACT INFECTION, SITE NOT SPECIFIED SNOMED Code(s): 28217168 Plan: 1patient presented hospital with sepsis in this patient who did have fever tachycardia elevated white count source is urinary in this patient who recently did have a left laser ureteral lithotripsy with subsequent removal of the ureteral stent now presenting the hospital with a left flank pain CT abdominal pelvis suggestive of bilateral hydroureteronephrosis concerning for complicated UTI and will need to cover for resistant gram-negative to be the likely pathogen. 2cefepime 2 g every 8 hours should provide adequate empiric antibiotic coverage. 3urology is following the patient regarding his hydroureteronephrosis. We will follow on clinical condition and cultures to further adjust medication if needed Thank you for this consultation we will follow the patient along with you Dictation was produced using [employer] dictation software. please excuse any grammatical, word or spelling errors. Time with Patient: Greater than 30
[2024-04-12 09:14] LABS: Basophils # (A) 0.05 X 10*3/uL (0.00-0.10); Basophils % (A) 0.5 %; Eosinophils # (A) 0.17 X 10*3/uL (0.04-0.35); Eosinophils % (A) 1.7 %; HCT 37.8 % (39.6-50.0); Lymphocytes # (A) 1.14 X 10*3/uL (0.90-5.00); Lymphocytes % (A) 11.3 %; MCH 28.4 pg (27.0-32.0); MCHC 31.7 g/dL (32.0-37.0); MCV 89.4 FL (80.0-97.0); Monocytes % (A) 7.9 %; NRBC Per 100 WBC 0 X 10*3/uL (0.00-0.01); Neutrophils # (A) 7.87 X 10*3/uL (1.80-7.70); Neutrophils % (A) 78.2 %; Platelet Count 191 X 10*3/uL (140-440); RBC 4.23 X 10*6/uL (4.40-5.60); RDW 12.7 % (11.5-14.5); WBC 10.07 X 10*3/uL (4.50-10.00)
[2024-04-12 09:33] LABS: BUN/Creat Ratio 10.75 Ratio (12.00-20.00); Blood Urea Nitrogen 17.2 mg/dL (9.0-27.0); Calcium 8.1 mg/dL (8.7-10.3); Carbon Dioxide 22.2 mmol/L (21.6-31.8); Chloride 107 mmol/L (96-109); Glucose 127 mg/dL (70-110); Potassium 4.5 mmol/L (3.5-5.5); Sodium 140 mmol/L (135-145)
--- NOTE | 2024-04-12 14:48 | P.PN ---
Subjective Progress Note Date: 04/12/24 Principal diagnosis: UTI, Hydronephrosis The patient underwent ureteroscopic removal of a left renal calculus on March 30, 2024. His ureteral stent was removed 1 week later. He is now admitted with a fever, and has been found to have bilateral hydronephrosis due to urinary r etention. A Longoria catheter was placed, and his renal function is improving. Urine and blood cultures both show Enterococcus. Additionally, the preliminary urine culture shows gram-negative bacilli. Accordingly, cefepime has been changed to Augmentin. He states that he is feeling better today. He has been bothered by constipation but did have a bowel movement this morning. Objective - Vital Signs Vital signs: Vital Signs Temp 98.2 F 04/12/24 07:25 Pulse 84 04/12/24 07:25 Resp 19 04/12/24 07:25 BP 152/96 04/12/24 07:25 Pulse Ox 95 04/12/24 07:25 FiO2 Intake & Output 04/11/24 04/12/24 04/12/24 18:59 06:59 18:59 Intake Total 2100 Output Total 7875 650 Balance -5775 -650 Weight 104.326 kg Intake: Oral 2100 Output: Urine 7875 650 Other: Voiding Method Indwelling Catheter - Constitutional General appearance: Present: average body habitus, cooperative, no acute distress - Gastrointestinal Gastrointestinal Comment(s): Soft, non-tender. - Psychiatric Psychiatric: Present: A&O x's 3 - Labs CBC & Chem 7: 04/12/24 03:34 04/12/24 03:34 Labs: Abnormal Lab Results - Last 24 Hours (Table) 04/11/24 04/11/24 04/12/24 Range/Units 14:07 14:07 03:34 WBC 14.8 H 10.07 H (3.8-10.6) k/uL RBC 3.99 L 4.23 L (4.30-5.90) m/uL Hgb 11.5 L 12.0 L (13.0-17.5) gm/dL Hct 34.9 L 37.8 L (39.0-53.0) % MCHC 31.7 L (32.0-37.0) g/dL Neutrophils # 13.1 H 7.87 H (1.3-7.7) k/uL Lymphocytes # 0.9 L (1.0-4.8) k/uL BUN 23 H (9-20) mg/dL Creatinine 1.96 H (0.66-1.25) mg/dL Est GFR (CKD-EPI) (>=60) BUN/Creatinine Ratio (12.00-20.00) Ratio Glucose 121 H (74-99) mg/dL Calcium 8.1 L (8.4-10.2) mg/dL AST 15 L (17-59) U/L Total Protein 5.7 L (6.3-8.2) g/dL Albumin 3.2 L (3.5-5.0) g/dL 04/12/24 Range/Units 03:34 WBC (3.8-10.6) k/uL RBC (4.30-5.90) m/uL Hgb (13.0-17.5) gm/dL Hct (39.0-53.0) % MCHC (32.0-37.0) g/dL Neutrophils # (1.3-7.7) k/uL Lymphocytes # (1.0-4.8) k/uL BUN (9-20) mg/dL Creatinine 1.6 H (0.66-1.25) mg/dL Est GFR (CKD-EPI) 49 L (>=60) BUN/Creatinine Ratio 10.75 L (12.00-20.00) Ratio Glucose 127 H (74-99) mg/dL Calcium 8.1 L (8.4-10.2) mg/dL AST (17-59) U/L Total Protein (6.3-8.2) g/dL Albumin (3.5-5.0) g/dL Microbiology - Last 24 Hours (Table) 04/11/24 00:54 Urine Culture - Preliminary Urine,Voided Group D Enterococcus Gram Neg Bacilli 04/11/24 02:10 Blood Culture Gram Stain - Preliminary Blood Blood Culture - Preliminary Molecular ID Assessment and Plan (1) Retention of urine, unspecified Current Visit: Yes Status: Acute Code(s): R33.9 - RETENTION OF URINE, UNSP ECIFIED SNOMED Code(s): 078622964 (2) Unspecified hydronephrosis Current Visit: Yes Status: Acute Code(s): N13.30 - UNSPECIFIED HYDRONEPHROSIS SNOMED Code(s): 93221314 Plan: - Continue Longoria catheter drainage. - Continue Augmentin, pending culture results.
--- NOTE | 2024-04-12 15:50 | P.PN ---
Subjective Progress Note Date: 04/12/24 Interval History: History of present illness: This is a 63-year-old male patient who underwent left ureteroscopy with laser lithotripsy to remove left lower pole renal calculus on March 30, 2024 had subsequently left ureteral stent removed on 04/07 due to abdominal pain difficulty voiding and constipation. Patient now presented to ER with a complaint of fever running up to 102, chills, difficulty voiding and left-sided abdominal pain. Patient denied any headache, vision changes, sore throat, produ ctive cough, chest pain, palpitation, nausea vomiting diarrhea constipation weakness or numbness to extremities In the ED patient had a fever of 101.8, tachycardic, blood pressure and oxygen saturation was stable. On admission WBCs 21.5, hemoglobin 12.9, platelet 203. Initially BMP showed hyperkalemia with potassium 5.9, creatinine 3.64, which has now improved to 1.96, potassium has improved to 4.8. Viral panel was negative. CT abdomen pelvis showed over distended urine bladder, bilateral moderate hydroureter and hydronephrosis, prostatomegaly. 04/12/24--- patient was seen and examined today. Patient feeling better today. Remained afebrile, heart rate 87, respiratory rate 18, blood pressure 154/65, saturating 97% on room air. WBC trending down to 10.07, hemoglobin 12.0, platelet 191. Creatinine trending down 1.6, BMP otherwise unremarkable. Urine culture and blood culture growing Enterococcus. Cefepime discontinued, on Unasyn, infectious disease following. Urology aware of the patientno surgical intervention. Assessment and plan: Sepsis: Enterococcus bacteremia: Fever: BRITTANEY on CKD: Hyperkalemia: Presented with fever, chills, Difficulty voiding, left-sided abdominal pain. Recent cystoscopy with lithotripsy on 03/30 followed by left ureteral stent removal on 04/07 Febrile, tachycardic, significant leukocytosis on presentation CT abdomen pelvis showed over distended urine bladder, bilateral moderate hydroureter and hydronephrosis, prostatomegaly. UA mildly positive Urine culture--gram-negative bacilli and Enterococcus Blood culture grew Enterococcus Cefepime discontinued, on Unasyn. IVF, monitor renal function, monitor potassium ID consulted--- continue Unasyn, plan to repeat blood cultures. Urology consulted--no surgical intervention. Hypothyroidism: Synthroid DVT prophylaxis Subcutaneous heparin Monitor vital signs and labs Labs and medication were reviewed. Continue same treatment. Further recommendations as per clinical course of the patient REVIEW OF SYSTEMS: CONSTITUTIONAL: No fever, no malaise, no fatigue. HEENT: No recent visual problems or hearing problems. Denied any sore throat. CARDIOVASCULAR: No chest pain, orthopnea, PND, no palpitations, no syncope. PULMONARY: No shortness of breath, no cough, no hemoptysis. GASTROINTESTINAL: No diarrhea, no nausea, no vomiting, no abdominal pain. NEUROLOGICAL: No headaches, no weakness, no numbness. HEMATOLOGICAL: Denies any bleeding or petechiae. GENITOURINARY: Denies any burning micturition, frequency, or urgency. MUSCULOSKELETAL/RHEUMATOLOGICAL: Denies any joint pain, swelling, or any muscle pain. ENDOCRINE: Denies any polyuria or polydipsia. The rest of the 14-point review of systems is negative. PHYSICAL EXAMINATION: GENERAL: The patient is A&O x3, NAD HEENT: EOMI, Sclerae anicteric, Moist Mucous membranes Neck: Supple, Non tender, No JVD PULMONARY: Equal breath souds B/L, No wheezing, No crackles. CARDIOVASCULAR: S1, S2 present. No murmurs, rubs, or gallops. ABDOMEN: Soft, nontender, nondistended, normoactive bowel sounds. No guarding or rebound tenderness. MUSCULOSKELETAL: No edema, No cyanosis. No clubbing. Normal ROM. Intact peripheral pulses. NEUROLOGICAL: CN 2-12 grossly intact. No FND Dictation was produced using [employer] dictation software. please excuse any grammatical, word or spelling errors. Objective - Vital Signs Vital signs: Vital Signs Temp 97.6 F 04/12/24 12:49 Pulse 87 04/12/24 12:49 Resp 18 04/12/24 12:49 BP 154/65 04/12/24 12:49 Pulse Ox 97 04/12/24 12:49 FiO2 Intake & Output 04/11/24 04/12/24 04/12/24 18:59 06:59 18:59 Intake Total 2100 Output Total 7892 0265 Balance -9313 -5171 Weight 104.326 kg Intake: Oral 2100 Output: Urine 7875 3275 Other: Voiding Method Indwelling Catheter # Bowel Movements 1 - Labs CBC & Chem 7: 04/12/24 03:34 04/12/24 03:34 Labs: Abnormal Lab Results - Last 24 Hours (Table) 04/12/24 04/12/24 Range/Units 03:34 03:34 WBC 10.07 H (4.50-10.00) X 10*3/uL RBC 4.23 L (4.40-5.60) X 10*6/uL Hgb 12.0 L (13.0-17.0) g/dL Hct 37.8 L (39.6-50.0) % MCHC 31.7 L (32.0-37.0) g/dL Neutrophils # 7.87 H (1.80-7.70) X 10*3/uL Creatinine 1.6 H (0.6-1.5) mg/dL Est GFR (CKD-EPI) 49 L (>=60) BUN/Creatinine Ratio 10.75 L (12.00-20.00) Ratio Glucose 127 H (70-110) mg/dL Calcium 8.1 L (8.7-10.3) mg/dL Microbiology - Last 24 Hours (Table) 04/11/24 02:10 Blood Culture Gram Stain - Preliminary Blood Blood Culture - Preliminary Enterococcus faecalis Molecular ID 04/11/24 00:54 Urine Culture - Preliminary Urine,Voided Group D Enterococcus Gram Neg Bacilli
--- NOTE | 2024-04-12 16:02 | P.PN ---
Subjective Progress Note Date: 04/12/24 Principal diagnosis: Reason for follow-up is complicated UTI and bacteremia Patient is a 63-year-old male with a past medical history significant for hypothyroidism kidney stone in this patient who recently did have left ureteroscopy with laser lithotripsy on 03/30/2024, subsequently he did have removal of the ureteral stent on April 07, 2024 patient now presenting to the ER complaining of fever chills difficulty urination patient did have CT with evidence of bilateral hydroureteronephrosis requiring Longoria catheter placement has been diagnosed sepsis secondary to source of blood culture came back positive with Enterococcus. On today's evaluation that is 04/12/2024,the patient did have resolution of his fever the patient is breathing comfortably room air no chest pain shortness of breath or cough no nausea vomiting no abdominal pain no diarrhea. Patient white count is down to 10.07, creatinine is 1.6 blood urine culture growing Enterococcus faecalis Objective - Vital Signs Vital signs: Vital Signs Temp 97.6 F 04/12/24 12:49 Pulse 87 04/12/24 12:49 Resp 18 04/12/24 12:49 BP 154/65 04/12/24 12:49 Pulse Ox 97 04/12/24 12:49 FiO2 Intake & Output 04/11/24 04/12/24 04/12/24 18:59 06:59 18:59 Intake Total 2100 Output Total 7875 2400 Balance -5775 -2400 Weight 104.326 kg Intake: Oral 2100 Output: Urine 7875 2400 Other: Voiding Method Indwelling Catheter # Bowel Movements 1 - Exam GENERAL DESCRIPTION: Middle-age male up in bed in no distress RESPIRATORY SYSTEM: Unlabored breathing , decreased breath sounds at bases HEART: S1 S2 regular rate and rhythm , ABDOMEN: Soft , no tenderness EXTREMITIES: No edema feet - Labs CBC & Chem 7: 04/12/24 03:34 04/12/24 03:34 Labs: Abnormal Lab Results - Last 24 Hours (Table) 04/11/24 04/11/24 04/12/24 Range/Units 14:07 14:07 03:34 WBC 14.8 H 10.07 H (3.8-10.6) k/uL RBC 3.99 L 4.23 L (4.30-5.90) m/uL Hgb 11.5 L 12.0 L (13.0-17.5) gm/dL Hct 34.9 L 37.8 L (39.0-53.0) % MCHC 31.7 L (32.0-37.0) g/dL Neutrophils # 13.1 H 7.87 H (1.3-7.7) k/uL Lymphocytes # 0.9 L (1.0-4.8) k/uL BUN 23 H (9-20) mg/dL Creatinine 1.96 H (0.66-1.25) mg/dL Est GFR (CKD-EPI) (>=60) BUN/Creatinine Ratio (12.00-20.00) Ratio Glucose 121 H (74-99) mg/dL Calcium 8.1 L (8.4-10.2) mg/dL AST 15 L (17-59) U/L Total Protein 5.7 L (6.3-8.2) g/dL Albumin 3.2 L (3.5-5.0) g/dL 04/12/24 Range/Units 03:34 WBC (3.8-10.6) k/uL RBC (4.30-5.90) m/uL Hgb (13.0-17.5) gm/dL Hct (39.0-53.0) % MCHC (32.0-37.0) g/dL Neutrophils # (1.3-7.7) k/uL Lymphocytes # (1.0-4.8) k/uL BUN (9-20) mg/dL Creatinine 1.6 H (0.66-1.25) mg/dL Est GFR (CKD-EPI) 49 L (>=60) BUN/Creatinine Ratio 10.75 L (12.00-20.00) Ratio Glucose 127 H (74-99) mg/dL Calcium 8.1 L (8.4-10.2) mg/dL AST (17-59) U/L Total Protein (6.3-8.2) g/dL Albumin (3.5-5.0) g/dL Microbiology - Last 24 Hours (Table) 04/11/24 02:10 Blood Culture Gram Stain - Preliminary Blood Blood Culture - Preliminary Enterococcus faecalis Molecular ID 04/11/24 00:54 Urine Culture - Preliminary Urine,Voided Group D Enterococcus Gram Neg Bacilli Assessment and Plan (1) Sepsis Current Visit: No Status: Acute Code(s): A41.9 - SEPSIS, UNSPECIFIED ORGANISM SNOMED Code(s): 16582638 (2) UTI (urinary tract infection) Current Visit: No Status: Acute Code(s): N39.0 - URINARY TRACT INFECTION, SITE NOT SPECIFIED SNOMED Code(s): 23621172 (3) Bacteremia Current Visit: Yes Status: Acute Code(s): R78.81 - BACTEREMIA SNOMED Code(s): 9855062 Plan: 1patient presented hospital with sepsis in this patient who did have fever tachycardia elevated white count source is urinary in this patient who recently did have a left laser ureteral lithotripsy with subsequent removal of the ureteral stent now presenting the hospital with a left flank pain CT abdominal pelvis suggestive of bilateral hydroureteronephrosis concerning for complicated UTI and will need to cover for resistant gram-negative to be the likely pathogen. 2patient blood cultures came back positive to coccus faecalis urine is growing Enterococcus as well as gram-negative 3antibiotic has been adjusted to Unasyn 3 g every 6 hours blood culture repeated to document clearance of his bacteremia multiple question concern answered Dictation was produced using [employer] dictation software. please excuse any grammatical, word or spelling errors. Time with Patient: Less than 30
[2024-04-12] MEDS: SODIUM ZIRCONIUM CYCLOSILICATE 10 GM PACKET PO SCH (23:10)
[2024-04-13] MEDS: ONDANSETRON 4 MG/2 ML VIAL IVP PRN (07:42)
[2024-04-13 09:14] LABS: Basophils # (A) 0.04 X 10*3/uL (0.00-0.10); Basophils % (A) 0.6 %; Eosinophils # (A) 0.32 X 10*3/uL (0.04-0.35); Eosinophils % (A) 4.6 %; HCT 38.2 % (39.6-50.0); HGB 12.4 g/dL (13.0-17.0); Lymphocytes # (A) 1.45 X 10*3/uL (0.90-5.00); Lymphocytes % (A) 20.9 %; MCH 28.6 pg (27.0-32.0); MCHC 32.5 g/dL (32.0-37.0); Monocytes # (A) 0.65 X 10*3/uL (0.20-1.00); Monocytes % (A) 9.4 %; NRBC Per 100 WBC 0 X 10*3/uL (0.00-0.01); Neutrophils # (A) 4.47 X 10*3/uL (1.80-7.70); Neutrophils % (A) 64.2 %; Platelet Count 226 X 10*3/uL (140-440); RBC 4.34 X 10*6/uL (4.40-5.60); RDW 12.1 % (11.5-14.5); WBC 6.95 X 10*3/uL (4.50-10.00)
[2024-04-13 09:23] LABS: BUN/Creat Ratio 8.58 Ratio (12.00-20.00); Blood Urea Nitrogen 10.3 mg/dL (9.0-27.0); Calcium 8.4 mg/dL (8.7-10.3); Carbon Dioxide 23.7 mmol/L (21.6-31.8); Chloride 107 mmol/L (96-109); Glucose 110 mg/dL (70-110); Potassium 4.1 mmol/L (3.5-5.5); Sodium 144 mmol/L (135-145)
--- NOTE | 2024-04-13 11:25 | P.PN ---
Subjective Progress Note Date: 04/13/24 Principal diagnosis: UTI, Hydronephrosis The patient underwent ureteroscopic removal of a left renal calculus on March 30, 2024. His ureteral stent was removed 1 week later. He is now admitted with a fever, and has been found to have bilateral hydronephrosis due to urinary r etention. A Longoria catheter was placed, and his renal function has returned to baseline. Urine and blood cultures both show Enterococcus. Additionally, the preliminary urine culture shows gram-negative bacilli. Accordingly, cefepime has been changed to Augmentin. He is afebrile, and his WBC count has returned to normal. He continues to feel better. He had an episode of diarrhea overnight. Objective - Vital Signs Vital signs: Vital Signs Temp 98.1 F 04/13/24 01:24 Pulse 88 04/13/24 01:24 Resp 14 04/13/24 01:24 BP 136/81 04/13/24 01:24 Pulse Ox 97 04/13/24 01:24 FiO2 Intake & Output 04/12/24 04/12/24 04/13/24 06:59 18:59 06:59 Intake Total 2100 Output Total 7875 4475 3400 Balance -5775 -4475 -3400 Weight 104.326 kg Intake: Oral 2100 Output: Urine 7875 4475 3400 Straight 1750 Other: Voiding Method Indwelling Catheter Indwelling Catheter # Bowel Movements 1 - Constitutional General appearance: Present: average body habitus, cooperative, no acute distress - Gastrointestinal Gastrointestinal Comment(s): Soft, non-tender, non-distended. - Psychiatric Psychiatric: Present: A&O x's 3 - Labs CBC & Chem 7: 04/13/24 04:12 04/13/24 04:12 Labs: Abnormal Lab Results - Last 24 Hours (Table) 04/12/24 04/12/24 Range/Units 03:34 03:34 WBC 10.07 H (4.50-10.00) X 10*3/uL RBC 4.23 L (4.40-5.60) X 10*6/uL Hgb 12.0 L (13.0-17.0) g/dL Hct 37.8 L (39.6-50.0) % MCHC 31.7 L (32.0-37.0) g/dL Neutrophils # 7.87 H (1.80-7.70) X 10*3/uL Creatinine 1.6 H (0.6-1.5) mg/dL Est GFR (CKD-EPI) 49 L (>=60) BUN/Creatinine Ratio 10.75 L (12.00-20.00) Ratio Glucose 127 H (70-110) mg/dL Calcium 8.1 L (8.7-10.3) mg/dL Microbiology - Last 24 Hours (Table) 04/11/24 02:10 Blood Culture Gram Stain - Preliminary Blood Blood Culture - Preliminary Enterococcus faecalis Molecular ID 04/11/24 00:54 Urine Culture - Preliminary Urine,Voided Group D Enterococcus Gram Neg Bacilli Assessment and Plan (1) Retention of urine, unspecified Current Visit: Yes Status: Acute Code(s): R33.9 - RETENTION OF URINE, UNSPECIFIED SNOMED Code(s): 003037329 (2) Unspecified hydronephrosis Current Visit: Yes Status: Acute Code(s): N13.30 - UNSPECIFIED HYDRONEPHROSIS SNOMED Code(s): 47984950 Plan: - Continue Longoria catheter drainage. - Continue Augmentin, pending culture results.
--- NOTE | 2024-04-13 15:13 | P.PN ---
Subjective Interval History: History of present illness: This is a 63-year-old male patient who underwent left ureteroscopy with laser lithotripsy to remove left lower pole renal calculus on March 30, 2024 had subsequently left ureteral stent removed on 04/07 due to abdominal pain difficulty voiding and constipation. Patient now presented to ER with a co mplaint of fever running up to 102, chills, difficulty voiding and left-sided abdominal pain. Patient denied any headache, vision changes, sore throat, productive cough, chest pain, palpitation, nausea vomiting diarrhea constipation weakness or numbness to extremities In the ED patient had a fever of 101.8, tachycardic, blood pressure and oxygen saturation was stable. On admission WBCs 21.5, hemoglobin 12.9, platelet 203. Initially BMP showed hyperkalemia with potassium 5.9, creatinine 3.64, which has now improved to 1.96, potassium has improved to 4.8. Viral panel was negative. CT abdomen pelvis showed over distended urine bladder, bilateral moderate hydroureter and hydronephrosis, prostatomegaly. 04/12/24--- patient was seen and examined today. Patient feeling better today. Remained afebrile, heart rate 87, respiratory rate 18, blood pressure 154/65, saturating 97% on room air. WBC trending down to 10.07, hemoglobin 12.0, platelet 191. Creatinine trending down 1.6, BMP otherwise unremarkable. Urine culture and blood culture growing Enterococcus. Cefepime discontinued, on Un asyn, infectious disease following. Urology aware of the patientno surgical intervention. 04/13/24--patient was seen and examined today. Patient feeling better today. No issues overnight. Patient remained afebrile. Vital stable. WBC 6.9, hemoglobin 12.4, platelet 226. BMP unremarkable. Creatinine trended down to 1.2. Repeat blood cultures pending. Assessment and plan: Sepsis: Enterococcus bacteremia: Fever: BRITTANEY on CKD: Hyperkalemia: Presented with fever, chills, Difficulty voiding, left-sided abdominal pain. Recent cystoscopy with lithotripsy on 03/30 followed by left ureteral stent removal on 04/07 Febrile, tachycardic, significant leukocytosis on presentation CT abdomen pelvis showed over distended urine bladder, bilateral moderate hydroureter and hydronephrosis, prostatomegaly. UA mildly positive Urine culture--gram-negative bacilli and Enterococcus Blood culture grew Enterococcus Cefepime discontinued, on Unasyn. IVF, monitor renal function, monitor potassium ID consulted--- continue Unasyn,repeat blood cultures. Urology consulted--no surgical intervention. Hypothyroidism: Synthroid DVT prophylaxis Subcutaneous heparin Monitor vital signs and labs Labs and medication were reviewed. Continue same treatment. Further recommendations as per clinical course of the patient REVIEW OF SYSTEMS: CONSTITUTIONAL: No fever, no malaise, no fatigue. HEENT: No recent visual problems or hearing problems. Denied any sore throat. CARDIOVASCULAR: No chest pain, orthopnea, PND, no palpitations, no syncope. PULMONARY: No shortness of breath, no cough, no hemoptysis. GASTROINTESTINAL: No diarrhea, no nausea, no vomiting, no abdominal pain. NEUROLOGICAL: No headaches, no weakness, no numbness. HEMATOLOGICAL: Denies any bleeding or petechiae. GENITOURINARY: Denies any burning micturition, frequency, or urgency. MUSCULOSKELETAL/RHEUMATOLOGICAL: Denies any joint pain, swelling, or any muscle pain. ENDOCRINE: Denies any polyuria or polydipsia. The rest of the 14-point review of systems is negative. PHYSICAL EXAMINATION: GENERAL: The patient is A&O x3, NAD HEENT: EOMI, Sclerae anicteric, Moist Mucous membranes Neck: Supple, Non tender, No JVD PULMONARY: Equal breath souds B/L, No wheezing, No crackles. CARDIOVASCULAR: S1, S2 present. No murmurs, rubs, or gallops. ABDOMEN: Soft, nontender, nondistended, normoactive bowel sounds. No guarding or rebound tenderness. MUSCULOSKELETAL: No edema, No cyanosis. No clubbing. Normal ROM. Intact peripheral pulses. NEUROLOGICAL: CN 2-12 grossly intact. No FND Dictation was produced using [employer] dictation software. please excuse any grammatical, word or spelling errors. Objective - Vital Signs Vital signs: Vital Signs Temp 98.4 F 04/13/24 07:01 Pulse 87 04/13/24 07:01 Resp 17 04/13/24 07:01 BP 150/95 04/13/24 07:01 Pulse Ox 96 04/13/24 07:01 FiO2 Intake & Output 01/01/25 01/02/25 01/02/25 18:59 06:59 18:59 Output Total 4475 3400 1500 Balance -4475 -3400 -1500 Output: Urine 4475 3400 1500 Straight 1750 Other: Voiding Method Indwelling Catheter Indwelling Catheter # Bowel Movements 1 - Labs CBC & Chem 7: 04/13/24 04:12 04/13/24 04:12 Labs: Abnormal Lab Results - Last 24 Hours (Table) 04/13/24 04/13/24 Range/Units 04:12 04:12 RBC 4.34 L (4.40-5.60) X 10*6/uL Hgb 12.4 L (13.0-17.0) g/dL Hct 38.2 L (39.6-50.0) % Anion Gap 13.30 H (4.00-12.00) mmol/L BUN/Creatinine Ratio 8.58 L (12.00-20.00) Ratio Calcium 8.4 L (8.7-10.3) mg/dL Microbiology - Last 24 Hours (Table) 04/11/24 02:10 Blood Culture Gram Stain - Preliminary Blood Blood Culture - Preliminary Enterococcus faecalis Molecular ID 04/11/24 00:54 Urine Culture - Preliminary Urine,Voided Enterococcus faecalis Gram Neg Bacilli
--- NOTE | 2024-04-13 15:33 | P.PN ---
Subjective Progress Note Date: 04/13/24 Principal diagnosis: Reason for follow-up is complicated UTI and bacteremia Patient is a 63-year-old male with a past medical history significant for hypothyroidism kidney stone in this patient who recently did have left ureteroscopy with laser lithotripsy on 03/30/2024, subsequently he did have removal of the ureteral stent on April 07, 2024 patient now presenting to the ER complaining of fever chills difficulty urination patient did have CT with evidence of bilateral hydroureteronephrosis requiring Longoria catheter placement has been diagnosed sepsis secondary to source of blood culture came back positive with Enterococcus. On today's evaluation that is 04/13/2024,the patient remains to be afebrile, patient is on room air not requiring supplemental oxygen and denies any shortness of breath no chest pain or cough.Patient denies having any nausea or vomiting, no abdominal pain complaining of some diarrhea. Patient white count normalized to 6.95 creatinine is 1.2 blood culture with Enterococcus faecalis urine is growing Enterococcus as well as gram-negative Objective - Vital Signs Vital signs: Vital Signs Temp 98.4 F 04/13/24 07:01 Pulse 87 04/13/24 07:01 Resp 17 04/13/24 07:01 BP 150/95 04/13/24 07:01 Pulse Ox 96 04/13/24 07:01 FiO2 Intake & Output 04/12/24 04/13/24 04/13/24 18:59 06:59 18:59 Output Total 4475 3400 Balance -4475 -3400 Output: Urine 4475 3400 Straight 1750 Other: Voiding Method Indwelling Catheter Indwelling Catheter # Bowel Movements 1 - Exam GENERAL DESCRIPTION: Middle-age male up in bed in no distress RESPIRATORY SYSTEM: Unlabored breathing , decreased breath sounds at bases HEART: S1 S2 regular rate and rhythm , ABDOMEN: Soft , no tenderness EXTREMITIES: No edema feet - Labs CBC & Chem 7: 04/13/24 04:12 04/13/24 04:12 Labs: Abnormal Lab Results - Last 24 Hours (Table) 04/13/24 04/13/24 Range/Units 04:12 04:12 RBC 4.34 L (4.40-5.60) X 10*6/uL Hgb 12.4 L (13.0-17.0) g/dL Hct 38.2 L (39.6-50.0) % Anion Gap 13.30 H (4.00-12.00) mmol/L BUN/Creatinine Ratio 8.58 L (12.00-20.00) Ratio Calcium 8.4 L (8.7-10.3) mg/dL Microbiology - Last 24 Hours (Table) 04/11/24 00:54 Urine Culture - Preliminary Urine,Voided Enterococcus faecalis Gram Neg Bacilli 04/11/24 02:10 Blood Culture Gram Stain - Preliminary Blood Blood Culture - Preliminary Enterococcus faecalis Molecular ID Assessment and Plan (1) Sepsis Current Visit: No Status: Acute Code(s): A41.9 - SEPSIS, UNSPECIFIED ORGANISM SNOMED Code(s): 73973817 (2) UTI (urinary tract infection) Current Visit: No Status: Acute Code(s): N39.0 - URINARY TRACT INFECTION, SITE NOT SPECIFIED SNOMED Code(s): 32314717 (3) Bacteremia Current Visit: Yes Status: Acute Code(s): R78.81 - BACTEREMIA SNOMED Code(s): 6849569 Plan: 1patient presented hospital with sepsis in this patient who did have fever tachycardia elevated white count source is urinary in this patient who recently did have a left laser ureteral lithotripsy with subsequent removal of the ureteral stent now presenting the hospital with a left flank pain CT abdominal pelvis suggestive of bilateral hydroureteronephrosis concerning for complicated UTI and will need to cover for resistant gram-negative to be the likely pathogen. 2patient blood cultures came back positive with Enterococcus faecalis urine is growing Enterococcus as well as gram-negative 3patient will be treated with Unasyn 3 g every 6 hours blood culture repeated to document clearance of his bacteremia to diabetes discharge antibiotics. 4diarrhea possible antibiotic associated has been encouraged to decrease his yogurt and probiotic intake Dictation was produced using [employer] dictation software. please excuse any grammatical, word or spelling errors. Time with Patient: Less than 30
[2024-04-14 08:29] VITALS: BP 146/88; PULSE 83; RESP 18; TEMP 98.8
[2024-04-14 08:59] LABS: BUN/Creat Ratio 9.09 Ratio (12.00-20.00); Calcium 8.1 mg/dL (8.7-10.3); Chloride 107 mmol/L (96-109); Glucose 93 mg/dL (70-110); Sodium 141 mmol/L (135-145)
[2024-04-14 09:18] LABS: Basophils # (A) 0.01 X 10*3/uL (0.00-0.10); Basophils % (A) 0.2 %; Eosinophils # (A) 0.25 X 10*3/uL (0.04-0.35); HCT 37.8 % (39.6-50.0); HGB 12.3 g/dL (13.0-17.0); Lymphocytes # (A) 1.07 X 10*3/uL (0.90-5.00); Lymphocytes % (A) 17.1 %; MCH 28.1 pg (27.0-32.0); MCHC 32.5 g/dL (32.0-37.0); MCV 86.3 FL (80.0-97.0); Mean Platelet Volume 10.5 FL (9.5-12.2); Monocytes # (A) 0.59 X 10*3/uL (0.20-1.00); Monocytes % (A) 9.4 %; NRBC Per 100 WBC 0 X 10*3/uL (0.00-0.01); Neutrophils # (A) 4.28 X 10*3/uL (1.80-7.70); Neutrophils % (A) 68.5 %; Platelet Count 221 X 10*3/uL (140-440); RBC 4.38 X 10*6/uL (4.40-5.60); RDW 12.3 % (11.5-14.5); WBC 6.25 X 10*3/uL (4.50-10.00)
--- NOTE | 2024-04-14 11:52 | P.DS ---
Providers Date of admission: 04/11/24 03:17 Expected date of discharge: 04/14/24 Attending physician: Marco Akers MD Consults: 04/11/24 03:13 Consult Physician Routine Consulting Provider: Rickie Topete Consult Reason/Comments: postop comp, sepsis, brittaney Do you want consulting provider notified?: Already Contacted 04/11/24 10:19 Consult Physician Routine Consulting Provider: Fiona Franco Consult Reason/Comments: Sepsis Do you want consulting provider notified?: Yes Primary care physician: Jhonatan Bautista [facility] Course: Discharge diagnoses: Sepsis: Enterococcus bacteremia: Fever: BRITTANEY on CKD: Hyperkalemia: Presented with fever, chills, Difficulty voiding, left-sided abdominal pain. Recent cystoscopy with lithotripsy on 03/30 followed by left ureteral stent removal on 04/07 Febrile, tachycardic, significant leukocytosis on presentation CT abdomen pelvis showed over distended urine bladder, bilateral moderate hydroureter and hydronephrosis, prostatomegaly. UA mildly positive Urine culture--gram-negative bacilli and Enterococcus Blood culture grew Enterococcus Initially was on cefepime, later on switched to Unasyn. ID consulted, re commended to continue Augmentin at discharge for 2 weeks. Repeat blood culture remain negative. Increase IV fluids, renal function monitored and remained stable. Potassium was normal.. Urology consulted--no surgical intervention. Follow-up with PCP in 1 week Follow-up with infectious disease and urology as outpatient. Hypothyroidism: Synthroid Hospital course: History of present illness: This is a 63-year-old male patient who underwent left ureteroscopy with laser lithotripsy to remove left lower pole renal calculus on March 30, 2024 had subsequently left ureteral stent removed on 04/07 due to abdominal pain difficulty voiding and constipation. Patient now presented to ER with a complaint of fever running up to 102, chills, difficulty voiding and left-sided abdominal pain. Patient denied any headache, vision changes, sore throat, productive cough, chest pain, palpitation, nausea vomiting diarrhea constipation weakness or numbness to extremities In the ED patient had a fever of 101.8, tachycardic, blood pressure and oxygen saturation was stable. On admission WBCs 21.5, hemoglobin 12.9, platelet 203. Initially BMP showed hyperkalemia with potassium 5.9, creatinine 3.64, which has now improved to 1.96, potassium has improved to 4.8. Viral panel was negative. CT abdomen pelvis showed over distended urine bladder, bilateral moderate hydroureter and hydronephrosis, prostatomegaly. Patient was admitted hospital for further evaluation and management. Urine culture and blood culture were obtained in the ED. Patient was initially started on cefepime. Later on urine culture and blood culture grew Enterococcus faecalis. Infectious disease consulted. Cefepime discontinued and patient received Unasyn during hospitalization. Repeat cultures remain negative, ID recommended to continue patient on Augmentin for 2 weeks at discharge. Urology was consulted, recommended doing surgical intervention. Patient condition and vital stable at discharge.. Blood culture remain negative. Please refer to med rec and assessment plan for further details Follow-up with PCP in 1 week Follow-up with infectious disease and urology as outpatient. PHYSICAL EXAMINATION: GENERAL: The patient is A&O x3, NAD HEENT: EOMI, Sclerae anicteric, Moist Mucous membranes Neck: Supple, Non tender, No JVD PULMONARY: Equal breath souds B/L, No wheezing, No crackles. CARDIOVASCULAR: S1, S2 present. No murmurs, rubs, or gallops. ABDOMEN: Soft, nontender, nondistended, normoactive bowel sounds. No guarding or rebound tenderness. MUSCULOSKELETAL: No edema, No cyanosis. No clubbing. Normal ROM. Intact peripheral pulses. NEUROLOGICAL: CN 2-12 grossly intact. No FND SKIN: No rashes. Dictation was produced using [employer] dictation software. please excuse any g rammatical, word or spelling errors. Patient Condition at Discharge: Fair Plan - Discharge Summary Discharge Rx Participant: Yes New Discharge Prescriptions: New Docusate [Colace] 100 mg PO BID #10 cap Amoxic-Pot Clav 875-125Mg [Augmentin 875-125] 1 tab PO Q12HR #28 tab Acetaminophen Tab [Tylenol] 650 mg PO Q6HR PRN tab PRN Reason: Mild Pain Or Fever > 100.5 Continue Testosterone [Androgel 1%] 2 packet TOPICAL DAILY Levothyroxine Sodium [Synthroid] 100 mcg PO DAILY Alfuzosin HCl [Alfuzosin HCl ER] 10 mg PO HS Acetaminophen Tab [Tylenol] 500 mg PO Q6H PRN PRN Reason: Pain Or Fever > 100.5 Discharge Medication List Testosterone [Androgel 1%] 2 packet TOPICAL DAILY 02/09/22 [History] Acetaminophen Tab [Tylenol] 500 mg PO Q6H PRN 04/11/24 [History] Alfuzosin HCl [Alfuzosin HCl ER] 10 mg PO HS 04/11/24 [History] Levothyroxine Sodium [Synthroid] 100 mcg PO DAILY 04/11/24 [History] Acetaminophen Tab [Tylenol] 650 mg PO Q6HR PRN tab 04/14/24 [Rx] Amoxic-Pot Clav 875-125Mg [Augmentin 875-125] 1 tab PO Q12HR #28 tab 04/14/24 [Rx] Docusate [Colace] 100 mg PO BID #10 cap 04/14/24 [Rx] Follow up Appointment(s)/Referral(s): Jhonatan Bautista DO [Primary Care Provider] - 1-2 days Fiona Franco MD [STAFF PHYSICIAN] - 1 Week Discharge Disposition: HOME SELF-CARE
--- NOTE | 2024-04-14 13:01 | P.PN ---
Subjective Progress Note Date: 04/14/24 Principal diagnosis: UTI, Hydronephrosis The patient underwent ureteroscopic removal of a left renal calculus on March 30, 2024. His ureteral stent was removed 1 week later. He is now admitted with a fever, and has been found to have bilateral hydronephrosis due to urinary r etention. A Longoria catheter was placed, and his renal function has returned to baseline. Urine and blood cultures both show Enterococcus. Additionally, the preliminary urine culture shows gram-negative bacilli. Accordingly, cefepime has been changed to Augmentin. He is afebrile, and his WBC count has returned to normal. He continues to feel better, other than diarrhea which is occurring hourly. Objective - Vital Signs Vital signs: Vital Signs Temp 98.3 F 04/14/24 00:50 Pulse 90 04/14/24 00:50 Resp 16 04/14/24 00:50 BP 139/84 04/14/24 00:50 Pulse Ox 92 L 04/14/24 00:50 FiO2 Intake & Output 04/13/24 04/13/24 04/14/24 06:59 18:59 06:59 Intake Total 1200 Output Total 3400 1500 1750 Balance -3400 -300 -1750 Intake: Intake, IV Titration 1200 Amount Ampicillin-Sulbactam 3 gm 100 In Sodium Chloride 0.9% 100 ml @ 200 mls/hr IVPB Q6HR DURAN Rx#:[id number] Sodium Chloride 0.9% 1, 1100 000 ml @ 100 mls/hr IV . Q10H DURAN Rx#:[id number] Output: Urine 3400 1500 1750 Straight 1750 Other: Voiding Method Indwelling Catheter Indwelling Catheter Indwelling Catheter # Bowel Movements 3 - Constitutional General appearance: Present: average body habitus, cooperative, no acute distress - Psychiatric Psychiatric: Present: A&O x's 3 - Labs CBC & Chem 7: 04/14/24 05:13 04/14/24 05:13 Labs: Abnormal Lab Results - Last 24 Hours (Table) 04/13/24 04/13/24 Range/Units 04:12 04:12 RBC 4.34 L (4.40-5.60) X 10*6/uL Hgb 12.4 L (13.0-17.0) g/dL Hct 38.2 L (39.6-50.0) % Anion Gap 13.30 H (4.00-12.00) mmol/L BUN/Creatinine Ratio 8.58 L (12.00-20.00) Ratio Calcium 8.4 L (8.7-10.3) mg/dL Microbiology - Last 24 Hours (Table) 04/12/24 15:14 Blood Culture - Preliminary Blood 04/11/24 02:10 Blood Culture Gram Stain - Preliminary Blood Blood Culture - Preliminary Enterococcus faecalis Molecular ID 04/11/24 00:54 Urine Culture - Preliminary Urine,Voided Enterococcus faecalis Gram Neg Bacilli Assessment and Plan (1) Retention of urine, unspecified Current Visit: Yes Status: Acute Code(s): R33.9 - RETENTION OF URINE, UNSP ECIFIED SNOMED Code(s): 631400415 (2) Unspecified hydronephrosis Current Visit: Yes Status: Acute Code(s): N13.30 - UNSPECIFIED HYDRONEPHROSIS SNOMED Code(s): 24877117 Plan: - Continue Longoria catheter drainage. - Agree with discharge home on Augmentin, as urine culture shows Klebsiella and Enterococcus. - Continue alfuzosin. - Follow-up in 1 week.
--- NOTE | 2024-04-14 13:10 | P.PN ---
Subjective Progress Note Date: 04/14/24 Principal diagnosis: Reason for follow-up is complicated UTI and bacteremia Patient is a 63-year-old male with a past medical history significant for hypothyroidism kidney stone in this patient who recently did have left ureteroscopy with laser lithotripsy on 03/30/2024, subsequently he did have removal of the ureteral stent on April 07, 2024 patient now presenting to the ER complaining of fever chills difficulty urination patient did have CT with evidence of bilateral hydroureteronephrosis requiring Longoria catheter placement has been diagnosed sepsis secondary to source of blood culture came back positive with Enterococcus. On today's evaluation that is 04/14/2024, the patient continues to be afebrile, the patient is on room air and breathing comfortably, the Pt denies having any chest pain or cough, the patient denies having any abdominal pain no vomiting or any diarrhea, patient feeling much better wants to go home. The patient white count 6.25, creatinine is 1.1 blood culture repeat has been negative Objective - Vital Signs Vital signs: Vital Signs Temp 98.8 F 04/14/24 07:01 Pulse 83 04/14/24 07:01 Resp 18 04/14/24 07:01 BP 146/88 04/14/24 07:01 Pulse Ox 96 04/14/24 07:01 FiO2 Intake & Output 04/13/24 04/14/24 04/14/24 18:59 06:59 18:59 Intake Total 1200 Output Total 1500 1750 Balance -300 -1750 Intake: Intake, IV Titration 1200 Amount Ampicillin-Sulbactam 3 gm 100 In Sodium Chloride 0.9% 100 ml @ 200 mls/hr IVPB Q6HR [facility] Rx#:[id number] Sodium Chloride 0.9% 1, 1100 000 ml @ 100 mls/hr IV . Q10H [facility]AN Rx#:[id number] Output: Urine 1500 1750 Other: Voiding Method Indwelling Catheter Indwelling Catheter Indwelling Catheter # Bowel Movements 3 - Exam GENERAL DESCRIPTION: Middle-age male up in bed in no distress RESPIRATORY SYSTEM: Unlabored breathing , decreased breath sounds at bases HEART: S1 S2 regular rate and rhythm , ABDOMEN: Soft , no tenderness EXTREMITIES: No edema feet - Labs CBC & Chem 7: 04/14/24 05:13 04/14/24 05:13 Labs: Abnormal Lab Results - Last 24 Hours (Table) 04/14/24 04/14/24 Range/Units 05:13 05:13 RBC 4.38 L (4.40-5.60) X 10*6/uL Hgb 12.3 L (13.0-17.0) g/dL Hct 37.8 L (39.6-50.0) % Immature Gran # 0.05 H (0.00-0.04) X 10*3/uL BUN/Creatinine Ratio 9.09 L (12.00-20.00) Ratio Calcium 8.1 L (8.7-10.3) mg/dL Microbiology - Last 24 Hours (Table) 04/12/24 15:14 Blood Culture - Preliminary Blood 04/11/24 02:10 Blood Culture Gram Stain - Preliminary Blood Blood Culture - Preliminary Enterococcus faecalis Molecular ID 04/11/24 00:54 Urine Culture - Preliminary Urine,Voided Enterococcus faecalis Gram Neg Bacilli Assessment and Plan (1) Sepsis Current Visit: No Status: Acute Code(s): A41.9 - SEPSIS, UNSPECIFIED ORGANISM SNOMED Code(s): 40095586 (2) UTI (urinary tract infection) Current Visit: No Status: Acute Code(s): N39.0 - URINARY TRACT INFECTION, SITE NOT SPECIFIED SNOMED Code(s): 58046779 (3) Bacteremia Current Visit: Yes Status: Acute Code(s): R78.81 - BACTEREMIA SNOMED Code(s): 4900881 Plan: 1patient presented hospital with sepsis in this patient who did have fever tachycardia elevated white count source is urinary in this patient who recently did have a left laser ureteral lithotripsy with subsequent removal of the ureteral stent now presenting the hospital with a left flank pain CT abdominal pelvis suggestive of bilateral hydroureteronephrosis concerning for complicated UTI and will need to cover for resistant gram-negative to be the likely p athogen. 2patient blood cultures came back positive with Enterococcus faecalis urine is growing Enterococcus as well as Klebsiella sensitive to Unasyn 3patient repeat blood culture has been negative he is feeling better wants to go home we will suggest a 2-day course of oral Augmentin on discharge prescription sent to the pharmacy and close outpatient follow-up, multiple question answered Dictation was produced using [employer] software. please excuse any grammatical, word or spelling errors. Time with Patient: Less than 30
--- NOTE | 2024-04-15 14:58 | CGM ---
Documentation Clarification Form Date: 04/15/2024 02:46:09 PM From: Tila Carrasquillo Phone: Admit Date: 04/11/2024 03:17:00 AM Patient Name: Elvin Almendarez Visit Number: [id number] Discharge Date: 04/14/2024 01:24:00 PM ATTENTION: The Clinical Documentation Specialists (CDI) and [facility] Coding Staff appreciate your assistance in clarifying documentation. Please respond to the clarification below the line at the bottom and electronically sign. The CDI & [facility] Coding staff will review the response and follow-up if needed. Please note: Queries are made part of the Legal Health Record. If you have any questions, please contact the author of this message via ITS. Doctor/Provider: Esteban Burk Unspecified CKD is documented H&P Progress Note 04/12 & 04/13 and DC Summary. Additional clarification regarding the stage of CKD is requested. History/Risk Factors: 63yo M, Sepsis d/t Enterococcus, AKIonCKD, prostatomegaly, UTI, hypothyroidism, hyperkalemia, JANUARY moderate hydroureterandhydronephrosis Clinical Indicators: BUN: 04/11 27 04/12 17.2 04/13 10.3 04/14 10.0 CR: 04/11 2.67 04/12 1.6 04/13 1.2 04/14 1.1 GFR: 04/11 25/29 04/12 49 04/13 69 04/14 76 Treatment: AFoley catheter was placed, and his renal function has returned to baseline. Please clarify the stage of the CKD, if known: [ ] CKD Stage 2 [ ] CKD Stage 3a [ ] CKD Stage 3b [ ] CKD Stage 4 [ ] Other, please specify [ ] Unable to determine Reference: National Kidney Foundation Stage 1 eGFR = 90 and kidney damage for =3 months Stage 2 eGFR 60-89 and kidney damage for =3 months Stage 3a eGFR 45-59 and kidney damage for =3 months Stage 3b eGFR 30-44 and kidney damage for =3 months Stage 4 eGFR 15-29 r and kidney damage for =3 months Stage 5 eGFR <15 and kidney damage for =3 months (Template last revised: April 2023) MTDD
--- NOTE | 2024-04-18 10:24 | CDI ---
Documentation Clarification Form Date: 04/15/2024 02:46:09 PM From: iTla Carrasquillo Phone: Admit Date: 04/11/2024 03:17:00 AM Patient Name: Elvin Almendarez Visit Number: [id number] Discharge Date: 04/14/2024 01:24:00 PM ATTENTION: The Clinical Documentation Specialists (CDI) and [facility] Coding Staff appreciate your assistance in clarifying documentation. Please respond to the clarification below the line at the bottom and electronically sign. The CDI & [facility] Coding staff will review the response and follow-up if needed. Please note: Queries are made part of the Legal Health Record. If you have any questions, please contact the author of this message via ITS. Doctor/Provider: Esteban Burk Unspecified CKD is documented H&P Progress Note 04/12 & 04/13 and DC Summary. Additional clarification regarding the stage of CKD is requested. History/Risk Factors: 63yo M, Sepsis d/t Enterococcus, AKIonCKD, prostatomegaly, UTI, hypothyroidism, hyperkalemia, JANUARY moderate hydroureterandhydronephrosis Clinical Indicators: BUN: 04/11 27 04/12 17.2 04/13 10.3 04/14 10.0 CR: 04/11 2.67 04/12 1.6 04/13 1.2 04/14 1.1 GFR: 04/11 25/29 04/12 49 04/13 69 04/14 76 Treatment: AFoley catheter was placed, and his renal function has returned to baseline. Please clarify the stage of the CKD, if known: [ x] CKD Stage 2 [ ] CKD Stage 3a [ ] CKD Stage 3b [ ] CKD Stage 4 [ ] Other, please specify [ ] Unable to determine Reference: National Kidney Foundation Stage 1 eGFR = 90 and kidney damage for =3 months Stage 2 eGFR 60-89 and kidney damage for =3 months Stage 3a eGFR 45-59 and kidney damage for =3 months Stage 3b eGFR 30-44 and kidney damage for =3 months Stage 4 eGFR 15-29 r and kidney damage for =3 months Stage 5 eGFR <15 and kidney damage for =3 months (Template last revised: April 2023) MTDD
== END 2024-04-14 13:24 | disposition home or self-care (01) | DRG 872 ==
LOC: EC 23:54 → 4SSUR 04-11 03:17
PROVIDERS: ADMIT Internal Medicine; ATTEND Internal Medicine
DX: A41.81 Sepsis due to Enterococcus (principal); N17.9 Acute kidney failure, unspecified; N13.6 Pyonephrosis; E87.5 Hyperkalemia; E03.9 Hypothyroidism, unspecified; B95.2 Enterococcus as the cause of diseases classified elsewhere; B96.1 Klebsiella pneumoniae [K. pneumoniae] as the cause of diseases classified elsewhere; K59.00 Constipation, unspecified; N18.2 Chronic kidney disease, stage 2 (mild); R19.7 Diarrhea, unspecified; N40.1 Benign prostatic hyperplasia with lower urinary tract symptoms; R33.8 Other retention of urine; Z79.890 Hormone replacement therapy; Z87.442 Personal history of urinary calculi; Z79.899 Other long term (current) drug therapy
CPT/HCPCS: 36415; 74177; 80048; 80053; 81001; 83605; 85025; 87040; 87077; 87086; 87186; 87636; 96361; 96365; 96366; 96375; 99284

== ENCOUNTER → 2024-06-21 | Outpatient (CLI) | payer BC ==
--- NOTE | 2024-06-21 14:28 | US ---
EXAMINATION TYPE: US kidneys/renal and bladder DATE OF EXAM: 06/21/2024 COMPARISON: 06/21/2024. CLINICAL INDICATION: Male, 63 years old with history of N13.30 UNSPECIFIED HYDRONEPHROSIS; Hx bilater al renal stones with hydronephrosis 03/2024. No symptoms. TECHNIQUE: Grayscale imaging of the bilateral kidneys and urinary bladder: FINDINGS: EXAM MEASUREMENTS: Right Kidney: 11.1 x 5.0 x 6.3 cm Left Kidney: 10.7 x 5.3 x 5.3 cm Right Kidney: No hydronephrosis or masses seen masslike area in the right renal cortex. Image 8 of 5 0 no correlate on recent CT 04/11/2024 suggesting artifact. Left Kidney: Mid echogenic focus with shadowing = 0.5 cm and lower pole echogenic focus = 0.6 cm. Bladder: anechoic, mildly distended Bilateral Jets not seen Prostate gland is prominent in size measuring up to 5.4 cm in transverse dimension There is no evidence for hydronephrosis at this point in time. No nephrolithiasis is seen. No leroy s are identified. The urinary bladder is anechoic. IMPRESSION: 1. No evidence for acute process. No hydronephrosis or obstructive uropathy. 2. Masslike area in the right renal cortex thought to be artifact given no finding and 04/11/2024 to correlate. 3. Nonobstructing left renal calculus. 4. Prostatomegaly, correlate serum PSA. [facility], , 06/21/2024 2:26 PM
== END | disposition home or self-care (01) ==
LOC: RADUSWWP 13:31
PROVIDERS: ATTEND Urology
DX: N13.2 Hydronephrosis with renal and ureteral calculous obstruction (principal); N40.0 Benign prostatic hyperplasia without lower urinary tract symptoms; N28.89 Other specified disorders of kidney and ureter
CPT/HCPCS: 76770

== ENCOUNTER → 2024-07-21 | Outpatient (CLI) | payer BC ==
--- NOTE | 2024-07-21 09:34 | XR ---
EXAMINATION TYPE: XR KUB DATE OF EXAM: 07/21/2024 9:19 AM COMPARISON: 03/30/2024.e CLINICAL INDICATION: Male, 63 years old with history of N20.0 LEFT CALCULUS OF KIDNEY; [facility] TECHNIQUE: One radiographic view of the abdomen was obtained. FINDINGS: The bowel gas pattern is nonspecific without dilated loops of small or large bowel. . Fecal material and gas are demonstrated throughout the colon and rectum. There is no evidence for organome seth or pneumoperitoneum. No acute osseous process. Multiple left renal calculi measuring up to 6 m m. IMPRESSION: 1. Multiple left renal calculi measuring up to 6 mm. 2. Nonspecific bowel gas pattern without radiographic evidence for acute process. [facility], , 07/21/2024 9:31 AM
== END | disposition home or self-care (01) ==
LOC: RADXRMAIN 08:53
PROVIDERS: ATTEND Urology
DX: N20.0 Calculus of kidney (principal)
CPT/HCPCS: 74018

== ENCOUNTER → 2024-10-24 | Outpatient (CLI) | payer BC ==
--- NOTE | 2024-10-24 21:54 | XR ---
EXAMINATION TYPE: XR KUB DATE OF EXAM: 10/24/2024 11:44 AM COMPARISON: 07/21/2024 CLINICAL INDICATION: Male, 64 years old with history of N20.0 CALCULUS OF KIDNEY; [facility], pain TECHNIQUE: One radiographic view of the abdomen was obtained. FINDINGS: Left-sided nephrolithiasis. Approximate 4 stones measuring up to 7 mm redemonstrated. Nonob structive bowel gas pattern. Mild overall stool. Multiple pelvic phleboliths are redemonstrated. IMPRESSION: Left-sided nephrolithiasis measuring up to 7 mm. Multiple pelvic phleboliths. [facility], Workstation: [facility], 10/24/2024 9:52 PM
== END | disposition home or self-care (01) ==
LOC: RADXRMAIN 11:30
PROVIDERS: ATTEND Urology
DX: N20.0 Calculus of kidney (principal); I87.8 Other specified disorders of veins
CPT/HCPCS: 74018